=== PATIENT | male | born 1945 | race Caucasian/White ===

== ENCOUNTER 2022-07-05 08:15 | Outpatient (RCR) | payer MEDICARE, OTHER, SELFPAY | END 2022-07-05 09:30 | disposition home or self-care (01) | PROVIDERS: PCP Family Medicine; Visit Provider Family Medicine | DX: M54.50 Low back pain, unspecified (principal); Z51.89 Encounter for other specified aftercare | CPT/HCPCS: 97110; 97140; 97162 ==

== ENCOUNTER 2022-08-01 08:54 | Emergency (ER) | payer MEDICARE, OTHER, SELFPAY ==
[2022-08-01 08:59] VITALS: BP 163/81; PULSE 78; RESP 20; TEMP 36.3; O2SAT 97; BMI 29.7
--- NOTE | 2022-08-01 09:16 | ED.ABDPAIN ---
HPI - Abdominal Pain General Time Seen by Provider: 09:16 Date Seen: 08/01/22 Chief Complaint: Abdominal Pain Stated Complaint: Suspected clogged stoma, swelling Time Seen by Provider: 08/01/22 09:16 Source: patient, family, RN notes reviewed and old records reviewed Mode of arrival: ambulatory Limitations: no limitations History of Present Illness HPI narrative: Patient is a very pleasant 77-year-old [place] with a history of stoma in October of 2021 secondary to, comes to the emergency room with concerns regarding an intestinal blockage. Patient had the onset of a mild frontal headache associated with abdominal pain, liquid output of the stoma as well as bulging of the abdomen lateral to the stoma yesterday. He notes that the headache has continued but here in the emergency room feels that the bulging of the abdomen to the right of the stoma has improved. He unfortunately still has some abdominal pain. He is concerned because he is getting essentially liquid out of his stoma unusually this is somewhat formed. No known ill exposures. Denies vomiting but was very nauseated upon his arrival. Related Data Previous Rx's Medication Instructions Recorded cephalexin 500 mg capsule 500 mg PO TID #20 caps 08/01/22 oxycodone 5 mg tablet 5 mg PO Q6H PRN pain #10 tabs 08/01/22 Allergies Allergy/AdvReac Type Severity Reaction Status Date / Time cat dander Allergy Verified 08/01/22 09:54 PFSH PFS Social History Smoking Status: Never smoker Do you use any of these nicotine containing products: None Second hand tobacco smoke exposure: No How often do you have a drink containing alcohol: 2-4 times a month How many standard drinks containing alcohol do you have on a typical day: 1 or 2 How often do you have six or more drinks on one occasion: Never AUDIT-C Alcohol total score: 2 Non-prescribed substance use: denies use service: Yes Exam Const: Vital Signs, click to edit/add: Vital Signs - 24 hr 08/01/22 08:59 08/01/22 11:16 Temperature 97.4 F L Pulse Rate [Pulse Oximeter] 78 77 Respiratory Rate 20 18 Blood Pressure [Ri ght Upper Arm] 163/81 H 159/68 H Pulse Oximetry 97 97 Oxygen Delivery Me thod Room Air Room Air Course Course Hospital Course: Differential diagnosis includes but is not limited to small-bowel obstruction, gastroenteritis, volvulus, COVID. Will check urinalysis, CBC, comprehensive panel, lipase, CRP and start with abdominal flat plate and upright. IV is placed and patient is given 500 mL of normal saline, Zofran 4 mg. Reevaluation(s) Reevaluation #1: Flat plate and upright show multiple air-fluid levels and I do suggest abdominal CT which patient agrees to. Creatinine is reassuring and patient is not currently on blood thinners. I did offer him either Toradol or a narcotic with risks and benefits discussed of both. He would like to try Toradol. Reevaluation #2: Patient is feeling much better at this time. UTI is noted on his urinalysis and he is agreement to be treated with Rocephin 1 g IV. Fortunately no evidence of obstruction Vital Signs Vital signs: Initial Vital Signs Temperature 97.4 F L 08/01/22 08:59 Temperature Source Temporal Artery Scan 08/01/22 08:59 Pulse Rate 78 08/01/22 08:59 Pulse Rhythm 08/01/22 08:59 Respiratory Rate 20 08/01/22 08:59 Blood Pressure 163/81 H 08/01/22 08:59 Blood Pressure Mean 108 08/01/22 08:59 Blood Pressure Position Supine 08/01/22 08:59 Pulse Oximetry 97 08/01/22 08:59 Oxygen Delivery Method 08/01/22 08:59 Vital Signs Temperature 97.4 F L 08/01/22 08:59 Pulse Rate 78 08/01/22 08:59 Respiratory Rate 20 08/01/22 08:59 Blood Pressure 163/81 H 08/01/22 08:59 Pulse Oximetry 97 08/01/22 08:59 Oxygen Delivery Method 08/01/22 08:59 Temperature 97.4 F L 08/01/22 08:59 Pulse Rate 77 08/01/22 11:16 Respiratory Rate 18 08/01/22 11:16 Blood Pressure 159/68 H 08/01/22 11:16 Pulse Oximetry 97 08/01/22 11:16 Oxygen Delivery Method 08/01/22 11:16 MDM - Abdominal Pain MDM Narrative Medical decision making narrative: 1. Ileus-patient appears to have likely viral mediated gastroenteritis with an ileus. There is no signs of bowel obstruction noted on CT. Patient received 1 L of normal saline along with Zofran and 1 dose of Toradol. He notes he is feeling much better and I would agree he looks improved. I did speak with our surgeon on-call in regards to this patient. She is stressing the importance of good hydration for him given the ileostomy and fluid losses. Recommend Gatorade Powerade and pushing fluids any agrees to this. Return for worsening symptoms and as needed. Oxycodone 5 mg 1/2-1 tab p.o. Q 6-8 hours p.r.n. abdominal pain. 10. Sent to his pharmacy. 2. UTI-patient has evidence of 50-100 wbc's in his urine with 1+ leukocyte esterase. Will treat him with the for UTI. He will receive Rocephin 1 g IV and go home on Keflex 500 mg p.o. t.i.d. x7 days. This sent to his pharmacy. 3. Disposition-patient will be discharged home in the care of his . He is to return for worsening symptoms and as needed. Medical Records Attestation: I reviewed the patient's medical records. Lab Data Attestation: I reviewed the patient's lab results. Labs: Lab Results 08/01/22 08/01/22 08/01/22 Range/Units 10:00 10:00 10:00 WBC 11.96 H (4.50-11.00) K/uL RBC 4.74 (4.30-5.90) m/uL Hgb 13.9 (13.5-17.5) gm/dL Hct 42.5 (37.0-53.0) % MCV 90 (80-100) fL MCH 29 (26-34) pg MCHC 33 (32-36) gm/dL RDW Coeff of Alice 14.2 (11.5-15.5) % Plt Count 243 (140-440) K/uL Neut % (Auto) 90.0 H (42.0-72.0) % Lymph % (Auto) 5.1 L (20-44) % Mccracken % (Auto) 4.5 (0.0-11.0) % Eos % (Auto) 0.3 (0.0-7.0) % Baso % (Auto) 0.0 (0.0-3.0) % Neut # (Auto) 10.80 H (1.7-7.0) K/uL Lymph # (Auto) 0.60 L (0.90-2.90) K/uL Mccracken # (Auto) 0.50 (0.00-0.90) K/UL Eos # (Auto) 0.00 (0.00-0.50) K/uL Baso # (Auto) 0.00 (0.00-0.30) K/uL Sodium Cancelled Potassium Cancelled Chloride Cancelled Carbon Dioxide Cancelled BUN Cancelled Creatinine Cancelled Estimated Creat Clear Cancelled Estimated GFR Cancelled Glucose Cancelled Lactate 1.2 (0.5-1.9) mmol/L Calcium Cancelled Total Bilirubin Cancelled AST Cancelled ALT Cancelled Alkaline Phosphatase Cancelled C-Reactive Protein (0.5-1.0) mg/dL Total Protein Cancelled Albumin Cancelled Lipase (23-300) U/L Urine Color (Yellow) Urine Appearance (Clear) Urine pH (5.0-8.5) Ur Specific Harlan (1.000-1.030) Urine Protein (Negative) Urine Glucose (UA) (Negative) Urine Ketones (Negative) Urine Blood (Negative) Urine Nitrite (Negative) Urine Bilirubin (Negative) Urine Urobilinogen (0.2-1.0) Ur Leukocyte Esterase (Negative) Urine RBC (0-2) Urine WBC (0-5) Ur Squamous Epith Cells (None-Few) Urine Bacteria (None) SARS-CoV-2 (PCR) (Negative) Influenza Type A (PCR) (Negative) Influenza Type B (PCR) (Negative) RSV (PCR) (Negative) 08/01/22 08/01/22 08/01/22 Range/Units 10:00 10:00 10:41 WBC (4.50-11.00) K/uL RBC (4.30-5.90) m/uL Hgb (13.5-17.5) gm/dL Hct (37.0-53.0) % MCV (80-100) fL MCH (26-34) pg MCHC (32-36) gm/dL RDW Coeff of Alice (11.5-15.5) % Plt Count (140-440) K/uL Neut % (Auto) (42.0-72.0) % Lymph % (Auto) (20-44) % Mccracken % (Auto) (0.0-11.0) % Eos % (Auto) (0.0-7.0) % Baso % (Auto) (0.0-3.0) % Neut # (Auto) (1.7-7.0) K/uL Lymph # (Auto) (0.90-2.90) K/uL Mccracken # (Auto) (0.00-0.90) K/UL Eos # (Auto) (0.00-0.50) K/uL Baso # (Auto) (0.00-0.30) K/uL Sodium 138 Potassium 4.3 Chloride 106 Carbon Dioxide 27 BUN 18 Creatinine 1.1 Estimated Creat Clear 62.55 Estimated GFR 69 Glucose 113 Lactate (0.5-1.9) mmol/L Calcium 9.4 Total Bilirubin 0.8 AST 26 ALT 28 Alkaline Phosphatase 80 C-Reactive Protein 1.8 H (0.5-1.0) mg/dL Total Protein 7.7 Albumin 4.4 Lipase 107 (23-300) U/L Urine Color Yellow (Yellow) Urine Appearance Clear (Clear) Urine pH 5.5 (5.0-8.5) Ur Specific Harlan 1.025 (1.000-1.030) Urine Protein Trace A (Negative) Urine Glucose (UA) Negative (Negative) Urine Ketones Negative (Negative) Urine Blood Negative (Negative) Urine Nitrite Negative (Negative) Urine Bilirubin Negative (Negative) Urine Urobilinogen 0.2 (0.2-1.0) Ur Leukocyte Esterase 1+ A (Negative) Urine RBC 0-2 (0-2) Urine WBC 50-100 A (0-5) Ur Squamous Epith Cells None (None-Few) Urine Bacteria None (None) SARS-CoV-2 (PCR) Negative SARS-CoV-2 (Negative) Influenza Type A (PCR) Negative PCR FLU A (Negative) Influenza Type B (PCR) Negative PCR FLU B (Negative) RSV (PCR) Negative PCR RSV (Negative) Imaging Data CT scan - abdomen: Attestation: I have reviewed the pertinent imaging results. Radiologist's impression: No abnormal intra pulmonary nodular densities through the lung bases. No evidence of pleural effusion. Normal size cardiac silhouette without any pericardial effusion. No focal hepatic or splenic pathology. No pancreatic pathology. Gallstones. No adrenal pathology. No kidneys stones or obstructive uropathy. No retroperitoneal lymphadenopathy. No pathology identified involving the stomach. 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 Dilatation of the small bowl loops most likely secondary to ileus rather than obstruction. No pneumoperitoneum. IMPRESSION: 1. Status post colectomy with ileostomy. 2. Mild dilatation of the small bowel loops probably ileus. 3. 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 4. Status post colectomy. Abdominal flat plate and upright: Attestation: I have reviewed the pertinent imaging results. My impression: Multiple air-fluid levels Radiologist's impression: No free air on the upright image. Largely decompressed stomach and duodenum. Few mildly distended small bowel loops within the left mid abdomen and upper pelvis. Air-fluid levels on the upright image. The appearance, while nonspecific could indicate an early or even partial small bowel obstruction. Diverting ostomy right lower quadrant. Postsurgical change from bowel resection left mid abdomen with an anastomotic suture line. IMPRESSION: Air-fluid levels within slightly distended small bowel loops within the abdomen. Although nonspecific, early or partial small bowel obstruction is not excluded. Clinical correlation and radiographic follow up are recommended. Discharge Plan Discharge Clinical Impression: Ileus, Acute UTI, Abdominal pain Patient Disposition: Home, Self-Care Condition: Improved Additional Instructions: 1. Continue antibiotic 1st dose this evening until we are able to ascertain the type of urine infection you may have. When we get the culture back we may; continue your medication, discontinue your medication, change your medication. 2. For discomfort you may use Tylenol as needed. For pain not relieved by Tylenol we will offer a small amount of oxycodone, 1/2-1 tab every 6 hours as needed. Remember this medication should not be used if driving or using alcohol. 3. Push fluids as much as possible including Gatorade or Powerade. 4. Return to the emergency room for worsening symptoms, absence of stool, increasing abdominal pain, persistent vomiting, fever and as needed. Follow-up with your primary MD in the next 2. -5 days to ensure that you are improving Prescriptions: New oxycodone 5 mg tablet 5 mg PO Q6H PRN (Reason: pain) Qty: 10 0RF Rx Instructions: Use 1/2-1 tab every 6-8 hours as needed for discomfort. cephalexin 500 mg capsule 500 mg PO TID Qty: 20 0RF Follow Up/Referrals: Pedro March MD [Primary Care Provider] - Stand Alone Forms: Shoulder Options Info Instructions
--- NOTE | 2022-08-01 09:48 | CRLHL7_ITS ---
For Patients: As a result of the Century Cures Act, medical imaging exams and procedure reports are released immediately into your electronic medical record. You may view this report before your referring provider. If you have questions, please contact your health care provider. INDICATION: Abdominal pain. Liquid stool. TECHNIQUE: Supine and upright views of the abdomen and pelvis. FINDINGS: No free air on the upright image. Largely decompressed stomach and duodenum. Few mildly distended small bowel loops within the left mid abdomen and upper pelvis. Air-fluid levels on the upright image. The appearance, while nonspecific could indicate an early or even partial small bowel obstruction. Diverting ostomy right lower quadrant. Postsurgical change from bowel resection left mid abdomen with an anastomotic suture line. IMPRESSION: Air-fluid levels within slightly distended small bowel loops within the abdomen. Although nonspecific, early or partial small bowel obstruction is not excluded. Clinical correlation and radiographic follow up are recommended. Dictated by Desean Alonzo MD @ 08/01/2022 11:09:58 AM (Electronically Signed)
[2022-08-01] MEDS: 0.9 % SODIUM CHLORIDE 500 ML 500 ML IV ×2 (10:00→13:09)
[2022-08-01] MEDS: ONDANSETRON 2 MG/ML inj 4 MG IVP (10:00)
[2022-08-01 10:07] LABS: Lactate* 1.2 mmol/L (0.5-1.9)
[2022-08-01 10:09] LABS: Eosinophils Percent Auto 0.3 % (0.0-7.0); Hematocrit 42.5 % (37.0-53.0); Hemoglobin* 13.9 gm/dL (13.5-17.5); Immature Granulocytes Pct Auto 0.1 %; Lymphocytes Percent Auto 5.1 % (20-44); Mean Corpuscular HGB Conc 33 gm/dL (32-36); Mean Corpuscular Hemoglobin 29 pg (26-34); Mean Corpuscular Volume 90 fL (80-100); Monocytes Percent Auto 4.5 % (0.0-11.0); Platelet Count* 243 K/uL (140-440); RDW Coefficient of Variation % 14.2 % (11.5-15.5); Red Blood Count 4.74 m/uL (4.30-5.90); White Blood Count* 11.96 K/uL (4.50-11.00)
[2022-08-01 10:12] LABS: Slide Review Reflex No
[2022-08-01 10:22] LABS: Albumin* 4.4 g/dL (3.3-5.0); Chloride* 106 mmol/L (96-114); Sodium* 138 mmol/L (135-149)
[2022-08-01 10:23] LABS: Potassium* 4.3 mmol/L (3.6-5.1)
[2022-08-01 10:25] LABS: Bilirubin Total* 0.8 mg/dL (0.1-1.5); Creatinine* 1.1 mg/dL (0.5-1.5); Est. Creatinine Clearance* 62.55; Estimated Glomerular Filt Rate 69 ml/min
[2022-08-01 10:26] LABS: Alanine Aminotransferase* 28 U/L (4-50); Alkaline Phosphatase* 80 U/L (40-150); Aspartate Amino Transferase* 26 U/L (12-35); Blood Urea Nitrogen* 18 mg/dL (7-30); Calcium* 9.4 mg/dL (8.4-10.6); Carbon Dioxide* 27 mmol/L (20-32); Glucose* 113 mg/dL (60-115); Lipase* 107 U/L (23-300); Total Protein* 7.7 g/dL (6.0-8.3)
[2022-08-01 10:29] LABS: C Reactive Protein* 1.8 mg/dL (0.5-1.0)
--- NOTE | 2022-08-01 10:41 | CRLHL7_ITS ---
For Patients: As a result of the Century Cures Act, medical imaging exams and procedure reports are released immediately into your electronic medical record. You may view this report before your referring provider. If you have questions, please contact your health care provider. INDICATION: Abdominal pain; history of gastric and colon cancer. COMPARISON: None. TECHNIQUE: CT abdomen and pelvis with intravenous contrast; coronal and sagittal reformats. FINDINGS: No abnormal intra pulmonary nodular densities through the lung bases. No evidence of pleural effusion. Normal size cardiac silhouette without any pericardial effusion. No focal hepatic or splenic pathology. No pancreatic pathology. Gallstones. No adrenal pathology. No kidneys stones or obstructive uropathy. No retroperitoneal lymphadenopathy. No pathology identified involving the stomach. 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 Dilatation of the small bowl loops most likely secondary to ileus rather than obstruction. No pneumoperitoneum. IMPRESSION: 1. Status post colectomy with ileostomy. 2. Mild dilatation of the small bowel loops probably ileus. 3. 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 4. Status post colectomy. Please note that all CT scans at this facility use dose modulation, iterative reconstruction, and/or weight-based dosing when appropriate to reduce radiation dose to as low as reasonably achievable. Dictated by Goldy Hardwick MD @ 08/01/2022 12:32:01 PM (Electronically Signed)
[2022-08-01 10:50] LABS: PCR FLU A Negative PCR FLU A (Negative); PCR FLU B Negative PCR FLU B (Negative); PCR RSV Negative PCR RSV (Negative)
[2022-08-01 10:52] LABS: SARS PCR* Negative SARS-CoV-2 (Negative)
[2022-08-01 11:05] LABS: Appearance Urine Clear (Clear); Bilirubin Urine Negative (Negative); Blood Urine Negative (Negative); Color Urine Yellow (Yellow); Glucose Urine Negative (Negative); Ketones Urine Negative (Negative); Leukocyte Esterase Urine 1+ (Negative); Nitrite Urine Negative (Negative); Protein Urine Trace (Negative); Specific Gravity Urine 1.025 (1.000-1.030); Urobilinogen Urine 0.2 (0.2-1.0); pH Urine 5.5 (5.0-8.5)
[2022-08-01] MEDS: KETOROLAC 15 MG/ML inj IVP (11:15)
[2022-08-01 11:16] VITALS: BP 159/68; PULSE 77; RESP 18; O2SAT 97
[2022-08-01 11:33] LABS: RBC Urine 0-2 (0-2); WBC Urine 50-100 (0-5)
[2022-08-01] MEDS: cefTRIAXone 1 GM in 0.9 % SODIUM CHLORIDE Mini-bag 100 ML IVPB (13:09)
== END 2022-08-01 14:30 | disposition home or self-care (01) ==
PROVIDERS: Emergency Provider Family Medicine; PCP Family Medicine
DX: K56.7 Ileus, unspecified (principal); N39.0 Urinary tract infection, site not specified
CPT/HCPCS: 36415; 74019; 74177; 80053; 81001; 83605; 83690; 85025; 86140; 87086; 87502; 87634; 87635; 96365; 96375; 99285; J0696; J1885; J2405; J7120; Q9967

== ENCOUNTER 2023-01-17 07:43 | Emergency (ER) | payer MEDICARE, OTHER, SELFPAY ==
[2023-01-17 07:48] VITALS: BP 180/81; PULSE 74; RESP 20; O2SAT 96; BMI 31.0
--- NOTE | 2023-01-17 08:10 | CRLHL7_ITS ---
For Patients: As a result of the Century Cures Act, medical imaging exams and procedure reports are released immediately into your electronic medical record. You may view this report before your referring provider. If you have questions, please contact your health care provider. Indication: DECREASED OSTOMY OUTPUT Technique: Abdomen 3 view. Comparison: August 20, 2022 Findings: Right ostomy not well visualized by radiograph. Mildly dilated loops of bowel throughout the abdomen. No evidence of free air. Mild dextrocurvature of the lumbar spine. Impression: Right ostomy not well visualized by radiograph. Mildly dilated loops of bowel throughout the abdomen without. Dictated by Aly Hook MD @ 01/17/2023 8:58:38 AM (Electronically Signed)
--- NOTE | 2023-01-17 08:35 | ED_ITS ---
HPI - Abdominal Pain General Date Seen: 01/17/23 Chief Complaint: Unspecified Complaint, Adult Stated Complaint: clogged ostemy Time Seen by Provider: 01/17/23 07:48 Source: patient Mode of arrival: ambulatory Limitations: no limitations History of Present Illness HPI narrative: Patient is a 69-year-old gentleman who presents here with decreased output which is clear fluid out of his ostomy, this is been for the last 24 hours, he was having increased output before this. He is worried about a possible blockage. I asked him if he has ever had obstruction before and he denied this. He has had no fevers or chills but increased abdominal tenderness is noted. He has had no vomiting associated with this. He does not pass any stools. He has had no fevers or chills, the past when he has been here with an ileus he had a UTI, but disputes that that is going on now. He is taking no medications for this, denies any cough cold-like symptoms sore throat, dysuria frequency of urination rashes, or other issues. History of ulcerative colitis, history of recurrent DVTs, Related Data Previous Rx's Medication Instructions Recorded cephalexin 500 mg capsule 500 mg PO TID #20 caps 08/01/22 oxycodone 5 mg tablet 5 mg PO Q6H PRN pain #10 tabs 08/01/22 cephalexin 500 mg capsule 500 mg PO TID #20 caps 01/17/23 Allergies Allergy/AdvReac Type Severity Reaction Status Date / Time cat dander Allergy Verified 01/17/23 07:48 Review of Systems Status of ROS Reports: 10 or more systems reviewed and unremarkable except as noted in History and below PFSH PFS Social History Smoking Status: Never smoker Do you use any of these nicotine containing products: None Second hand tobacco smoke exposure: No How often do you have a drink containing alcohol: 2-4 times a month How many standard drinks containing alcohol do you have on a typical day: 1 or 2 How often do you have six or more drinks on one occasion: Never AUDIT-C Alcohol total score: 2 Non-prescribed substance use: denies use service: Yes Exam Narrative: Exam Narrative: Patient is seen in room 2, he has no apparent distress speaking to me normally nontoxic able sit up, pupils equal round reactive to light there is no scleral icterus redness TMs bilaterally normal oropharynx normal neck is supple full range of motion there is no lymphadenopathy anterior posterior chains his chest is clear by with no wheezing crackles noted heart sounds are normal easy respirations are noted, his abdomen is not distended nor is it hard. He has normal bowel sounds throughout all areas. And there is some clearish yellow fluid along with flex a feculent material in his ostomy bag. There is no r edness blood, not a lot of tenderness on palpation although he tells me that he is sore. There is no CVA tenderness he has no hernias noted bilaterally, normal male genitalia, moves all extremities independently well with absence of rashes. Neurologically intact in his upper lower extremities. Const: Vital Signs, click to edit/add: Vital Signs - 24 hr 01/17/23 07:48 01/17/23 08:50 01/17/23 10:17 Temperature 97.3 F L Pulse Rate [Pulse Oximeter] 74 68 68 Respiratory Rate 20 18 16 Blood Pressure [Ri ght Upper Arm] 180/81 H 154/80 H 157/89 H Pulse Oximetry 96 996 H 97 Oxygen Delivery Me thod Room Air Room Air Room Air Documenting provider has reviewed patient's vital signs: yes Course Course Hospital Course: Patient has decreased pain, but then the pain did increase slightly, will give another dose of morphine. His x-ray looked more like ileus by my review and also by radiology's review. Clearly improved from when he was here in August, when he improved anyway from outpatient management. I think a little bit of pain medication along with treatment for his UTI as he has 10-25 blood cells in his urine. Would be appropriate, his increasing nausea vomiting distension he has come back, Vital Signs Vital signs: Initial Vital Signs Pulse Rate 74 01/17/23 07:48 Respiratory Rate 20 01/17/23 07:48 Blood Pressure 180/81 H 01/17/23 07:48 Blood Pressure Mean 114 H 01/17/23 07:48 Pulse Oximetry 96 01/17/23 07:48 Oxygen Delivery Method Room Air 01/17/23 07:48 Vital Signs Pulse Rate 74 01/17/23 07:48 Respiratory Rate 20 01/17/23 07:48 Blood Pressure 180/81 H 01/17/23 07:48 Pulse Oximetry 96 08/17/23 07:48 Oxygen Delivery Method Room Air 01/17/23 07:48 Temperature 97.3 F L 01/17/23 08:50 Pulse Rate 68 01/17/23 10:17 Respiratory Rate 16 01/17/23 10:17 Blood Pressure 157/89 H 01/17/23 10:17 Pulse Oximetry 97 01/17/23 10:17 Oxygen Delivery Method Room Air 01/17/23 10:17 MDM - Abdominal Pain MDM Narrative Medical decision making narrative: During this evaluation of this patient I considered multiple differential diagnosis is which included the life-threatening such as appendicitis, aortic aneurysm, mesenteric ischemia, bowel perforation, volvulus, and bowel obstruction. Other differential diagnosis is include but are not limited to cholecystitis, pancreatitis, hepatitis, gastritis, GERD, diverticulitis, peptic ulcer disease, pyelonephritis/UTI, renal colic/stone, testicular torsion as well as other acute scrotal processes, inflammatory bowel disease, as well as other etiologies I do think this is more likely and I highly is given his presentation, partial obstruction is not totally ruled out but that would be unlikely. Medical Records Attestation: I reviewed the patient's medical records. Lab Data Attestation: I reviewed the patient's lab results. Labs: Lab Results 01/17/23 01/17/23 01/17/23 Range/Units 08:50 09:00 09:22 WBC 8.71 (4.50-11.00) K/uL RBC 4.37 (4.30-5.90) m/uL Hgb 13.0 L (13.5-17.5) gm/dL Hct 40.3 (37.0-53.0) % MCV 92 (80-100) fL MCH 30 (26-34) pg MCHC 32 (32-36) gm/dL RDW Coeff of [place] 16.2 H (11.5-15.5) % Plt Count 212 (140-440) K/uL Neut % (Auto) 76.2 H (42.0-72.0) % Lymph % (Auto) 14.0 L (20-44) % [place] % (Auto) 8.3 (0.0-11.0) % Eos % (Auto) 0.9 (0.0-7.0) % Baso % (Auto) 0.1 (0.0-3.0) % Neut # (Auto) 6.60 (1.7-7.0) K/uL Lymph # (Auto) 1.20 (0.90-2.90) K/uL [place] # (Auto) 0.70 (0.00-0.90) K/UL Eos # (Auto) 0.08 (0.00-0.50) K/uL Baso # (Auto) 0.01 (0.00-0.30) K/uL Abs Immat Gran (auto) 0.04 (0.00-0.30) K/uL Imm/Tot Granulo (auto) 0.5 % Sodium 140 (135-149) mmol/L Potassium 4.4 (3.6-5.1) mmol/L Chloride 108 (96-114) mmol/L Carbon Dioxide 25 (20-32) mmol/L BUN 19 (7-30) mg/dL Creatinine 1.1 (0.5-1.5) mg/dL Estimated Creat Clear 62.55 Estimated GFR 69 ml/min Glucose 94 (60-115) mg/dL Lactate 1.7 (0.5-1.9) mmol/L Calcium 8.8 (8.4-10.6) mg/dL Total Bilirubin 0.6 (0.1-1.5) mg/dL Direct Bilirubin 0.1 (0.0-0.5) mg/dL AST 35 (12-35) U/L ALT 31 (4-50) U/L Alkaline Phosphatase 62 (40-150) U/L Total Protein 7.1 (6.0-8.3) g/dL Albumin 4.0 (3.3-5.0) g/dL Lipase 63 (23-300) U/L Urine Color Yellow (Yellow) Urine Appearance Clear (Clear) Urine pH 5.5 (5.0-8.5) Ur Specific [place] 1.020 (1.000-1.030) Urine Protein Negative (Negative) Urine Glucose (UA) Negative (Negative) Urine Ketones Negative (Negative) Urine Blood Negative (Negative) Urine Nitrite Negative (Negative) Urine Bilirubin Negative (Negative) Urine Urobilinogen 0.2 (0.2-1.0) Ur Leukocyte Esterase 1+ A (Negative) Urine RBC 0-2 (0-2) Urine WBC 10-25 A (0-5) Ur Squamous Epith Cells Few (None-Few) Urine Bacteria None (None) Coarse Granular Casts Few A (None) SARS-CoV-2 (PCR) Negative SARS-CoV-2 (Negative) Influenza Type A (PCR) Negative PCR FLU A (Negative) Influenza Type B (PCR) Negative PCR FLU B (Negative) RSV (PCR) Negative PCR RSV (Negative) Imaging Data Abdominal x-ray: Attestation: I have reviewed the pertinent imaging results. My impression: Scattered air-fluid levels, most likely ileus. Radiologist's impression: Patient: MIGUEL CASTREJON Facility: [facility] Site . Site : [id number] Study: XRay Abdomen/Pelvis 2 VIEWS-01/17/2023 8:39:47 AM Ordering Physician: Trae Rodgers Final Report: Indication: DECREASED OSTOMY OUTPUT Technique: Abdomen 3 view. Comparison: August 20, 2022 Findings: Right ostomy not well visualized by radiograph. Mildly dilated loops of bowel throughout the abdomen. No evidence of free air. Mild dextrocurvature of the lumbar spine. Impression: Right ostomy not well visualized by radiograph. Mildly dilated loops of bowel throughout the abdomen without. Dictated by Aly Hook MD @ 01/17/2023 8:58:38 AM (Electronic Signature) Discharge Plan Discharge Clinical Impression: Urinary tract infection, Ileus Patient Disposition: Home, Self-Care Condition: Stable Instructions: Urinary Tract Infection in Men (DC), Acute Nausea and Vomiting (ED), Ileus (ED) Additional Instructions: Looks like the UTIs back, this likely is compounding summer your pain, like I said there is really not a lot evidence of an obstruction, lots of fluids, bananas rice applesauce and toast or really good starting points here. Worsening abdominal bloating, discomfort, with vomiting, would make me think that there is obstruction and come back and be seen. Take the antibiotic as directed. Walking is a fantastic thing to help promote but gut to move. Prescriptions: New cephalexin 500 mg capsule 500 mg PO TID Qty: 20 0RF No Action oxycodone 5 mg tablet 5 mg PO Q6H PRN (Reason: pain) Qty: 10 0RF Rx Instructions: Use 1/2-1 tab every 6-8 hours as needed for discomfort. cephalexin 500 mg capsule 500 mg PO TID Qty: 20 0RF Follow Up/Referrals: Pedro March MD [Primary Care Provider] - Stand Alone Forms: MyHealth Info Instructions
[2023-01-17 08:50] VITALS: BP 154/80; PULSE 68; RESP 18; TEMP 36.3; O2SAT 996; BMI 31.0
[2023-01-17] MEDS: 0.9 % SODIUM CHLORIDE 1000 ml 1,000 ML IV ×2 (08:59→10:19)
[2023-01-17] MEDS: ONDANSETRON 2 MG/ML inj 4 MG IVP (09:13)
[2023-01-17] MEDS: MORPHINE 2 MG/ML inj IVP ×2 (09:13→11:44)
[2023-01-17 09:27] LABS: Lactate* 1.7 mmol/L (0.5-1.9)
[2023-01-17 09:33] LABS: Basophils Absolute Auto 0.01 K/uL (0.00-0.30); Basophils Percent Auto 0.1 % (0.0-3.0); Eosinophils Absolute Auto 0.08 K/uL (0.00-0.50); Eosinophils Percent Auto 0.9 % (0.0-7.0); Hematocrit 40.3 % (37.0-53.0); Immature Granulocytes Abs Auto 0.04 K/uL (0.00-0.30); Immature Granulocytes Pct Auto 0.5 %; Mean Corpuscular HGB Conc 32 gm/dL (32-36); Mean Corpuscular Hemoglobin 30 pg (26-34); Mean Corpuscular Volume 92 fL (80-100); Monocytes Percent Auto 8.3 % (0.0-11.0); Neutrophils Percent Auto 76.2 % (42.0-72.0); Platelet Count* 212 K/uL (140-440); RDW Coefficient of Variation % 16.2 % (11.5-15.5); Red Blood Count 4.37 m/uL (4.30-5.90); White Blood Count* 8.71 K/uL (4.50-11.00)
[2023-01-17 09:34] LABS: Slide Review Reflex No
[2023-01-17 09:44] LABS: Chloride* 108 mmol/L (96-114); Potassium* 4.4 mmol/L (3.6-5.1); Sodium* 140 mmol/L (135-149)
[2023-01-17 09:47] LABS: Appearance Urine Clear (Clear); Bilirubin Urine Negative (Negative); Blood Urine Negative (Negative); Color Urine Yellow (Yellow); Glucose Urine Negative (Negative); Ketones Urine Negative (Negative); Leukocyte Esterase Urine 1+ (Negative); Nitrite Urine Negative (Negative); Protein Urine Negative (Negative); Urobilinogen Urine 0.2 (0.2-1.0); pH Urine 5.5 (5.0-8.5)
[2023-01-17 09:47] LABS: Blood Urea Nitrogen* 19 mg/dL (7-30); Carbon Dioxide* 25 mmol/L (20-32); Creatinine* 1.1 mg/dL (0.5-1.5); Est. Creatinine Clearance* 62.55; Estimated Glomerular Filt Rate 69 ml/min
[2023-01-17 09:48] LABS: Alkaline Phosphatase* 62 U/L (40-150); Aspartate Amino Transferase* 35 U/L (12-35); Bilirubin Direct* 0.1 mg/dL (0.0-0.5); Bilirubin Total* 0.6 mg/dL (0.1-1.5); Calcium* 8.8 mg/dL (8.4-10.6); Glucose* 94 mg/dL (60-115); Total Protein* 7.1 g/dL (6.0-8.3)
[2023-01-17 09:49] LABS: Alanine Aminotransferase* 31 U/L (4-50); Lipase* 63 U/L (23-300)
[2023-01-17 10:17] VITALS: BP 157/89; PULSE 68; RESP 16; O2SAT 97
[2023-01-17 10:22] LABS: Coarse Granular Casts Urine Few; RBC Urine 0-2 (0-2); Squamous Epithelial Cell Urine Few (None-Few)
[2023-01-17 10:34] LABS: PCR FLU A Negative PCR FLU A (Negative); PCR FLU B Negative PCR FLU B (Negative); PCR RSV Negative PCR RSV (Negative)
[2023-01-17 10:35] LABS: SARS PCR* Negative SARS-CoV-2 (Negative)
== END 2023-01-17 12:58 | disposition home or self-care (01) ==
PROVIDERS: Emergency Provider Family Medicine; PCP Family Medicine
DX: N39.0 Urinary tract infection, site not specified (principal); K56.7 Ileus, unspecified
CPT/HCPCS: 36415; 74019; 80048; 80076; 81001; 83605; 83690; 85025; 87086; 87631; 96374; 96375; 96376; 99284; J2270; J2405; J7030

== ENCOUNTER 2024-08-31 09:45 | Outpatient (RCR) | payer MEDICARE, OTHER, SELFPAY ==
--- OUTSIDE RECORDS SUMMARY | 2024-05-20 13:45 | XMS_ITS | Encounter Summary ---
Author Name [facility] [place] [facility] [place] [facility] [place] Address [address] [place] [address] Care Team Providers Care Mixer Attendant Name Role Phone ERIC ROMERO Primary Care Provider Unavailab le Insurance Providers: All historical and current Section Date Range: From patient's date of to the date document was created. This section includes the names of all active insurance providers for the patient. Insurance Provider Type of Coverage Plan Name Start of Policy Coverage End of Policy Coverage Group Number Member ID Insurance Provider's Telephone Number Policy Mota's Name Patient's Relationship to Policy Mota MEDICA (WNR) MEDICARE ADVANTAGE [facility] ([facility]) Jun 03, 2019 [id number] [phone] ROB CASTREJON PATIENT MEDICA [facility] ([facility]) MEDICARE [facility] ([facility]) Jun 03, 2017 [id number] [phone] ROB CASTREJON PATIENT MEDICA [facility] (WNR) MEDICARE ADVANTAGE [facility] (WNR) Jun 03, 2017 [id number] ROB CASTREJON PATIENT MEDICARE PART D ([facility]) MEDICARE (M) PART D Apr 03, 2009 PART D [id number] ROB CASTREJON PATIENT [facility] ([facility]) [facility] MEDIC ARE DHRUVA HUGH T Apr 03, 2009 [id number] [phone] ROB SHEARER PATIENT Selected Encounter This section includes the information on record at [place] for the Encounter. 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 Apr 20, 2024 04:22 PM SECONDARY Acquired absence of other specified parts of digestive tract LISA ROMERO B [facility] Apr 20, 2024 04:22 PM SECONDARY Carcinoma in situ of prostate LISA ROMERO EN B [facility] Apr 20, 2024 04:22 PM SECONDARY Chronic rhinitis LISA ROMERO B [facility] Apr 20, 2024 04:22 PM SECONDARY Essential (primary) hypertension LISA ROMERO EN B [facility] Apr 20, 2024 04:22 PM SECONDARY Iron deficiency anemia, unspecified LISA ROMERO EN B [facility] Apr 20, 2024 04:22 PM SECONDARY Obstructive sleep apnea (adult) (pediatric) LISA ROMERO EN B [facility] Apr 20, 2024 04:22 PM SECONDARY Other asthma LISA ROMERO EN B [facility] Apr 20, 2024 04:22 PM SECONDARY Prediabetes LISA ROMERO EN B [facility] Apr 20, 2024 04:22 PM SECONDARY Ulcerative colitis, unsp with unspecified complications LISA ROMERO EN B [facility] Apr 20, 2024 04:22 PM SECONDARY Unspecified atrial fibrillation LISA ROMERO EN B [facility] Plan of Treatment: Future Appointments (+ 6 months) and Future Tests (+/- 45 days) The Plan of Treatment section includes future care activities for the patient from all [place] treatmentfacilities. This section includes future appointments and future orders which are active, pending or scheduled. Future Appointments This section includes appointments that were scheduled to occur 6 months from the date of the Encounter, up to a maximum of 20 appointments. The data comes from all [facility]. Appointment Date/Time Appointment Type Appointme nt Facility Name May 21, 2024 09:00 AM AMBULATORY - NONE JOYCE KHAN [facility] May 25, 2024 11:20 AM AMBULATORY - MEDICINE CHARITY RAMIREZ [facility] Active, Pending, and Scheduled Orders This section includes a listing of several types of active, pending, and scheduled orders, including clinic medications orders, diagnostic test orders, procedure orders and consult orders; where the start date of the order is 45 days before the date of the Encounter or 45 days after the date of theEncounter. The data comes from all [facility]. Test Date/Time Test Type Test Details Facility Name May 21, 2024 12:00 AM Laboratory - Chemi stry Order APIXABAN PLASMA SP ONCE [facility] Lab Results: +/- 30 days of the encounter This section includes the Chemistry and Hematology Lab Results on record with [place] for the patient. Radiology Reports and Pathology Reports are provided separately, in subsequent sections. Lab Results This section contains the Chemistry/Hematology Results that were resulted 30 days before or 30 daysafter the date of the Encounter. Date/Time Source Result Type Result - Unit Interpretation Reference Range Comment Apr 20, 2024 03:[address] [facility] LUPUS INHIBITOR PANEL Specimen Type: PLASMA No comment entered. Ordering Provider: ERIC ROMERO Report Released Date/Time: Apr 20, 2024 03:18 PM Reporting Lab: [facility] [id number] Performing Lab: [facility] [id number] .dRVVT NORM. RATIO 0.96 {ratio} <1.15 .SILICA CLOT RATIO 1.12 {ratio} <1.18 LUPUS INHIBIT INTERP NEGATIVE -negative Apr 20, 2024 03:[address] [facility] METHYLMALONIC ACID Specimen Type: SERUM No comment entered. Ordering Provider: ERIC ROMERO Report Released Date/Time: Apr 20, 2024 03:18 PM Reporting Lab: [facility] [id number] Performing Lab: [facility] [phone] METHYLMALONIC ACID 234 nmol/L 0-400 Apr 20, 2024 03:[address] [facility] PROTEIN C (FUNC) Specimen Type: PLASMA No comment entered. Ordering Provider: ERIC ROMERO Report Released Date/Time: Apr 20, 2024 03:18 PM Reporting Lab: [facility] [id number] Performing Lab: [facility] [id number] PROTEIN C (FUNC) 94 [phone] Apr 20, 2024 03:[address] [facility] PROTEIN S-FREE Specimen Type: PLASMA No comment entered. Ordering Provider: ERIC ROMERO Report Released Date/Time: Apr 20, 2024 03:18 PM Reporting Lab: [facility] [phone] Performing Lab: [facility] [phone] PROTEIN S-FREE [phone] Apr 20, 2024 03:[address] [facility] ANTI-CARDIOLIPIN WALKER PANEL Specimen Type: SERUM Comment: .AGNES IGG:REFERENCE RANGE: <20.0 GPL-U/mL .AGNES IGG:Value Interpretation .AGNES IGG:----- .AGNES IGG:< 20.0 Antibody not detected .AGNES IGG:> or = 20.0 Antibody detected .AGNES IGM:REFERENCE RANGE: <20.0 MPL-U/mL .AGNES IGM:Value Interpretation .AGNES IGM:----- .AGNES IGM:< 20.0 Antibody not detected .AGNES IGM:> or = 20.0 Antibody detected .AGNES IGM:The antiphospholipid antibody syndrome (APS) is a .AGNES IGM:clinical-pat hologic correlation that includes a .AGNES IGM:clinical event (e.g. arterial or venous thrombosis, .AGNES IGM: morbidity) and persistent positive .AGNES IGM:antiphosphol ipid antibodies (IgM, IgG Cardiolipin or .AGNES IGM:b2GPI antibodies greater than the 99th percentile; .AGNES IGM:or a lupus anticoagulant). International consensus .AGNES IGM:guidelines for APS suggest waiting at least 12 weeks .AGNES IGM:before retesting to confirm antibody persistence. .AGNES IGM:The Systemic Lupus International Collaborating [facility] .AGNES IGM:immunologica l classification criteria for systemic .AGNES IGM:lupus erythematosus (SLE) include testing for .AGNES IGM:isotype IgA, which has yet to be incorporated into .AGNES IGM:APS criteria. Low level antiphospholipid antibodies .AGNES IGM:may sometimes be detected in the setting of infection, .AGNES IGM:drug therapy or aging. .AGNES IGM:For additional information, please refer to .AGNES IGM:http://educa tion.[employer].com/faq/FA Q109 .AGNES IGM:(This link is being provided for informational/ .AGNES IGM:educational purposes only.) .AGNES IGM:Test Performed by [facility], .AGNES IGM:[facility], .AGNES IGM:[address] [place], [place] .AGNES IGM:iLto Kruse M.D., Ph.D., Director of Laboratories .AGNES IGM: , CLIA [id number] Ordering Provider: ERIC ROMERO Report Released Date/Time: Apr 20, 2024 03:18 PM Reporting Lab: [facility] [phone] Performing Lab: [facility] [id number] [facility] CARDIOLIPIN,IG G WALKER 2.5 SEE BELOW CARDIOLIPIN,IG M WALKER 11.3 SEE BELOW Apr 20, 2024 03:[address] [facility] B 12 Specimen Type: SERUM No comment entered. Ordering Provider: ERIC ROMERO Report Released Date/Time: Apr 20, 2024 03:18 PM Reporting Lab: [facility] [phone] Performing Lab: [facility] [address] B 12 336 pg/mL 213-816 Apr 20, 2024 03:[address] [facility] FOLATE Specimen Type: SERUM No comment entered. Ordering Provider: ERIC ROMERO Report Released Date/Time: Apr 20, 2024 03:18 PM Reporting Lab: [facility] [phone] Performing Lab: [facility] [phone] FOLATE 17.5 ng/mL >7.0 Apr 20, 2024 03:[address] [facility] BASIC METABOLIC PANEL+MG Specimen Type: PLASMA No comment entered. Ordering Provider: ERIC ROMERO Report Released Date/Time: Apr 20, 2024 03:18 PM Reporting Lab: [facility] [phone] Performing Lab: [facility] [phone] CREATININE 1.2 mg/dL 0.7-1.2 UREA NITROGEN 18 mg/dL 8-26 GLUCOSE 97 mg/dL 70-100 SODIUM 142 mmol/L 136-145 POTASSIUM 4.1 mmol/L 3.5-5.1 CHLORIDE 111 mmol/L H 98-107 CO2 22 mmol/L 22-29 CALCIUM 9.4 mg/dL 8.4-10.2 MAGNESIUM 1.9 mg/dL 1.6-2.6 ANION GAP 9 mmol/L 5-15 .CREAT EGFR(CKD-EPI) 62 >60 Apr 20, 2024 03:[address] [facility] CBC & DIFF Specimen Type: BLOOD Comment: Automated Differential Performed Ordering Provider: ERIC ROMERO Report Released Date/Time: Apr 20, 2024 03:18 PM Reporting Lab: [facility] [phone] Performing Lab: [facility] [phone] WBC 9.3 4.0-11.0 RBC 4.71 4.60-6.20 HGB 14.2 g/dL 13.5-17.9 HCT 43.9 41.0-54.0 MCV 93.2 fL 80.0-100.0 MCH 30.1 pg 27.0-33.0 MCHC 32.3 g/dL 32.0-37.5 PLT 230 150-400 MPV 8.9 fL L 9.1-13.0 NEUT 72.7 40.0-80.0 LYMPHS 16.0 15.0-45.0 MONO 8.9 2.0-12.0 EOSINO 1.6 0.0-6.0 BASO 0.4 0.0-2.0 RDW 14.6 H 11.5-14.5 ABS LYMPH 1.5 1.0-4.0 ABS MONO 0.8 0.1-1.0 ABS NEUT 6.8 2.0-7.7 ABS EOS 0.2 0.0-0.5 ABS BASO 0.0 0.0-0.2 IG(META,MYELO, PRO) 0.4 ABS IMMATURE GRAN 0.0 0.0-0.1 Apr 20, 2024 03:[address] [facility] HEMOGLOBIN A1C Specimen Type: BLOOD Comment: Values obtained from A1C measurements can vary. For typical A1C assays, a reported value of 7.0 could actually be between 6.7 and 7.3 if measured by a reference method. A reported value of 9.0 could actually be between 8.7 and 9.3. Ref: http://www.ngsp. org/CAPdata.asp Ordering Provider: ERIC ROMERO Report Released Date/Time: Apr 20, 2024 03:18 PM Reporting Lab: [facility] [phone] Performing Lab: [facility] [phone] HEMOGLOBIN A1C 5.5 4.0-6.0 Apr 20, 2024 03:[address] [facility] IRON GROUP Specimen Type: SERUM No comment entered. Ordering Provider: ERIC ROMERO Report Released Date/Time: Apr 20, 2024 03:18 PM Reporting Lab: [facility] [address] Performing Lab: [facility] [address] IRON 45 ug/dL L 65-175 TIBC,CALCULATE D 313 ug/dL 250-425 FERRITIN 115.0 ng/mL 21.8-274.7 IRON SATURATION 14 L 20-50 TRANSFERRIN 250 mg/dL 163-382 Apr 20, 2024 03:[address] [facility] PT/INR(ANTICOAG) Specimen Type: PLASMA No comment entered. Ordering Provider: ERIC ROMERO Report Released Date/Time: Apr 20, 2024 03:18 PM Reporting Lab: [facility] [phone] Performing Lab: [facility] [phone] .INR 1.2 H 0.8-1.1 .PT 13.5 s H 9.4-12.5 Apr 20, 2024 03:[address] [facility] LIVER FUNCTION TESTS Specimen Type: PLASMA No comment entered. Ordering Provider: ERIC ROMERO Report Released Date/Time: Apr 20, 2024 03:18 PM Reporting Lab: [facility] [phone] Performing Lab: [facility] [phone] BILIRUBIN, TOTAL 0.5 mg/dL 0.2-1.2 ALKALINE PHOSPHATASE 67 U/L 40-150 ALT/SGPT 27 U/L <44 AST/SGOT 28 U/L 11-34 GAMMA GTP 35 U/L <54 Vital Signs: All taken on the encounter date This section contains inpatient and outpatient Vital Signs collected on the date of the Encounter. Date/Time Temperature Pulse Blood Pressure Respiratory Rate SP02 Pain Height Weight Body Mass Index Source Apr 20, 2024 02:13 PM 98.3 112 137/72 20 92 0 72 244 33 [facility] Social History: Smoking Status (Most current) and Tobacco Use (All prior to encounter date) This section includes the most current, and the historical, smoking and tobacco- related health factors from the [place] facility where the Encounter took place. Current Smoking Status This section includes the most current smoking, or tobacco-related health factor, from the [place] facility where the Encounter took place. Date/Time Current Smoking Status Comment Manohar ity Apr 20, 2024 02:00 PM CO-TOBACCO NEVER USED CIGARETTES [facility] Tobacco Use History This section includes a history of the smoking, or tobacco-related health factors, that were collected on or before the date of the Encounter. The data comes from the [place] facility where the Encounter took place. Date/Time Smoking Status/Tobacco Use Comment F acility Apr 20, 2024 02:00 PM CO-TOBACCO NEVER USED OTHER TYPE [facility] Encounter Notes: All associated encounter notes This section contains the clinical notes associated to the Encounter. Date/Time Encounter Note(s) Provider Source May 04, 2024 03:29 PM LETTERS: LOCAL TITLE: FOLLOW UP RESULTS LETTER STANDARD TITLE: LETTERS DATE OF NOTE: MAY 04, 2024@15:29 ENTRY DATE: MAY 04, 2024@15:29:24 AUTHOR: ERIC ROMERO COSIGNER: URGENCY: STATUS: COMPLETED [facility] [place] [address] May [address] [place] [address] Dear : I am writing to inform you of the results of testing that you had done recently at the [facility]. Additional Comments: Your iron level was a little low. Taking the iron every other day, as I recommended, *might* improve absorption. All of the tests for coagulopathy were normal. This is good news. You still need to take your apixaban, however. If you have any further questions or problems, please contact our nursing staff or provider at the following number: [phone]. Sincerely, ERIC RMOERO MD STAFF PHYSICIAN ERIC ROMERO [facility] Apr 20, 2024 03:18 PM INTERNAL MEDICINE NOTE: LOCAL TITLE: MEDICINE CLINIC NOTE STANDARD TITLE: INTERNAL MEDICINE NOTE DATE OF NOTE: APR 20, 2024@15:18 ENTRY DATE: APR 20, 2024@15:18:57 AUTHOR: ERIC ROMERO EXP COSIGNER: URGENCY: STATUS: COMPLETED MEDICINE CLINIC NOTE Has ADDENDA - Nurse's note reviewed. Problem List - Active - NONE FOUND - 90 minutes today were spent in review of CPRS records, careful review of medication list, interviewing the patient, coordinating care, education, and planning next steps. Patient is here to establish [facility] care. he receives primary care from Dr. Collins at [facility]. He is here primarily because he takes Eliquis, and it is too expensive for him. Past Medical history and history of present illnesses below: 1. Ulcerative colitis since age 25 years. S/p colectomy 2 years ago for right sided colon cancer. 2. 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 First DVT was age 25. Last DVT was 8-9 years ago while on anticoagulation. No family h/o blood clots, but says his father had had multiple strokes prior to the age of 49 years. He has no known history of coagulopathy. No recurrence since starting apixaban. 3. h/o persistent mild asthma versus bronchitic asthma. Treated with steroid inhaler alone. Has albuterol inhaler, has taken 2 rescues inhalations in the past year. No nocturnal symptoms. 4. H/o iron deficiency anemia. diagnosis was established after his colectomy. The patient is unclear as to the source of low iron. He doesn't recall having upper endoscopy. He believes that it *could* have been an immediate post-op diagnosis, but he is not sure. 5. Atrial fibrillation. Apparently was diagnosed during his colectomy. 6. Prostate CA. He has selected watchful waiting and is followed by a urologist. 7. h/o vasomotor rhinitis. Uses nasal steroid inhaler 8. h/o HTN. 9. H/o pre-diabetes. last HgA1c was less than 6.[address] collins's office (about 6 months ago). 10. H/o Sleep apnea. Just got a new machine. He reports reasonably refreshing sleep. Sleep is disrupted mildly for nocturia, but he reliably gets up twice a night to empty his ostomy bag. . Served in the [employer]. 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 No occupational or exposures of concern. Drinks 1-2 oz ETOH per month. PE: Patient appears younger than stated age. Breathing is non-labored and he is no apparent distress a/p: 1. Ulcerative colitis. s/p colectomy. Managed by [facility]. Wants to get his ostomy supplies from [place]. He will sign up for [employer] and send us the names/list of needed supplies 2. Recurrent DVTs. Will check some basic labs, but he will need lifelong anticoagulation. He has not had a DVT recurrence since starting Eliquis. Wrote RX for 30 days of medications. Refer to anticoagulation clinic. 3. Atrial fibrillation. Second indication for Eliquis. 4. Rhinitis. Patient will continue nasal steroid per his primary care doctor. 5. Iron deficiency. Advised him to take iron every other day. Will check CBC and iron panel here. 6. h/o mild asthma. Switch to budesonide/formoterol per FINESSE guidelines. Check PFTs He should stop the fluticasone disc/albuterol. 7. CAP. Managed by outside urologist. 8. h/o HTN. BP is acceptable here on no medications. Managed by outside PCP. 9. h/o pre-diabetes. Check HgA1c here. 10. Sleep apnea. Gave him the number to call when/if he needs new supplies. 11. RTC 1 year or sooner. Enroll roque. Medication Reconciliation: Education Evaluations *Was medication education provided for NEW medications or CHANGES to medications? (including medication name, dose, route, reason for use, and potential side effects). Yes. Verbal education was provided to patient/caregiver and patient/caregiver verbalized understanding. TERATOGENIC MED & CONTRACEPTION REVIEW (Optional)... ===== MEDICATION RECONCILIATION ===== Review Done: The medication list shown below was verified for accuracy and it includes all pending medications/active medications/all medications or discontinued within the last 90 days/all remote medications and non-VA medications. If a given category (i.e. remote meds) is not shown, that means that a patient doesn't have a medication(s) in that category. Allergies listed below were also reviewed/updated for accuracy. Allergies/ADR from [facility] may not display in CPRS. Use JLV MRT5 - Allergies/ADRs FACILITY ALLERGY/ADR -------- No Remote Allergy/ADR Data available for this patient [facility] [facility] No Known Allergies Active and Recently Outpatient Medications (including Supplies): Issue Date Status Last Fill Pending Outpatient Medications Refills Expiration 1) APIXABAN 2.5MG TAB Qty: 60 Sig: TAKE PENDING ONE TABLET BY MOUTH EVERY 12 HOURS Refills: 0 2) BUDESONIDE 160/FORMOTER 4.5MCG 120D INH PENDING Qty: 2 Sig: INHALE 1 PUFF BY Refills: 0 INHALATION EVERY DAY Start Date Active Non-VA Medications Refills Expiration 1) Non-VA ATORVASTATIN CALCIUM 10MG TAB ACTIVE SiMG MOUTH EVERY DAY 2) Non-VA CALCIUM 250MG/VITAMIN D 125 UNT ACTIVE TAB Si TABLET MOUTH EVERY DAY 3) Non-VA FERROUS GLUCONATE 324MG TAB Sig: ACTIVE 324MG MOUTH EVERY DAY 4) Non-VA FLUTICASONE SOLN,NASAL Sig: ACTIVE EACH NOSTRIL 5) Non-VA FOLIC ACID 1MG TAB SiMG ACTIVE MOUTH EVERY DAY 6) Non-VA METOPROLOL TARTRATE TAB Sig: ACTIVE 12.5MG MOUTH TWICE A DAY 7) Non-VA OMEPRAZOLE 40MG EC CAP SiMG ACTIVE MOUTH EVERY DAY 9 Total Medications /tao/ ERIC ROMERO MD STAFF PHYSICIAN Signed: 04/20/2024 16:27 05/04/2024 ADDENDUM STATUS: COMPLETED lupus anticoagulant-, antiphospholipid antibody panel -, Protein C and S normal. Iron and iron sat a little low /tao/ ERIC ROMERO MD STAFF PHYSICIAN Signed: 05/04/2024 15:[address] [facility] Apr 20, 2024 02:16 PM INTERNAL MEDICINE OUTPATIENT NOTE: LOCAL TITLE: MEDICINE CLINIC NURSING NOTE STANDARD TITLE: INTERNAL MEDICINE OUTPATIENT NOTE DATE OF NOTE: APR 20, 2024@14:16 ENTRY DATE: APR 20, 2024@14:16:30 AUTHOR: JANEL CASTELLANO COSIGNER: URGENCY: STATUS: COMPLETED TYPE OF VISIT: Appointment Check In Type of appointment: In-person appointment REASON FOR VISIT: new patient ALLERGIES: Patient has answered NKA VITAL SIGNS: Blood Pressure: 137/72 (04/20/2024 14:13) Pulse: 112 (04/20/2024 14:13) Respiration: 20 (04/20/2024 14:13) Temperature: 98.3 F [36.8 C] (04/20/2024 14:13) Weight: 244 lb [110.68 kg] (04/20/2024 14:13) Height: 72 in [182.9 cm] (04/20/2024 14:13) BMI: 33.2 O2 Sat: 92% (04/20/2024 14:13) Pain: 0 (04/20/2024 14:13) PAIN SCREEN: Patient is not having significant pain that they wish to discuss with their provider today. MEDICATION Active Outpatient Medications (including Supplies): No Medications Found Over the Counter/Herbal Medications: The patient denies taking any outside medications or herbals. Toxic Exposure Screening: The [place]/caregiver was asked if they believe the experienced any toxic exposure(s), such as Airborne Hazards and Open Burn [place], [place] War related exposures, Agent Stark, Radiation, contaminated water at [place] or other such exposures, while serving in the Armed [place]. [place] has no concerns about toxic exposure(s) while serving in the Armed Forces. The [place]/caregiver was informed that we will continue to ask this screening question every 5 years. They can contact their provider/healthcare team if they have concerns about exposures and would like to be screened sooner. Printed information was offered and provided if desired. Tobacco Use Screening: The patient has never smoked cigarettes. The patient has never used other types of tobacco. PTSD Screening: PC-PTSD-5 A PTSD screening test (PC-PTSD-5) was negative (score=0). IN THE PAST MONTH, have you ever had any experience that was so frightening, horrible or traumatic. For example: A serious accident or fire a physical or sexual assault or abuse An earthquake or flood A war Seeing someone be killed or seriously injured Having a loved one through homicide or suicide 1. Have you ever experienced this kind of event? NO 2. Had nightmares about the event(s) or thought about the event(s) when you did not want to? Response not required due to responses to other questions. 3. Tried hard not to think about the event(s) or went out of your way to avoid situations that reminded you of the event(s)? Response not required due to responses to other questions. 4. Been constantly on guard, watchful, or easily startled? Response not required due to responses to other questions. 5. [place] numb or detached from people, activities, or your surroundings? Response not required due to responses to other questions. 6. [place] guilty or unable to stop blaming yourself or others for the event(s) or any problems the event(s) may have caused? Response not required due to responses to other questions. Suicide Screen: C-SSRS Screening [place]-Suicide Severity Rating Scale (C-SSRS Screener) 1. Over the past month, have you wished you were or wished you could go to sleep and not wake up? No 2. Over the past month, have you had any actual thoughts of killing yourself? No 3. Over the past month, have you been thinking about how you might do this? Response not required due to responses to other questions. 4. Over the past month, have you had these thoughts and had some intention of acting on them? Response not required due to responses to other questions. 5. Over the past month, have you started to work out or worked out the details of how to kill yourself? Response not required due to responses to other questions. 6. If yes, at any time in the past month did you intend to carry out this plan? Response not required due to responses to other questions. 7. In your lifetime, have you ever done anything, started to do anything, or prepared to do anything to end your life (for example, collected pills, obtained a gun, gave away valuables, went to the roof but didn't jump)? No 8. If YES, was this within the past 3 months? Response not required due to responses to other questions. MST Screening: Patient denies experiencing sexual trauma (MST). Homelessness/Food Insecurity Screen: In the past 2 months, have you been living in stable housing that you own, rent, or stay in as part of a household? Yes - Living in stable housing. Are you worried or concerned that in the next 2 months you may NOT have stable housing that you own, rent, or stay in as part of a household? No - Not worried about housing near future The reports the following: Within the past 12 months, you worried whether your food would run out before you got money to buy more. Never true Within the past 12 months, the food you bought just didn't last and you didn't have money to get more. Never true Food Assistance Programs [facility] Food Assistance [facility] Depression Screening: Perform PHQ-2 A PHQ-2 screen was performed. The score was 0 which is a negative screen for depression. Over the past two weeks, how often have you been bothered by the following problems? 1. Little interest or pleasure in doing things Not at all 2. Feeling down, depressed, or hopeless Not at all Alcohol Use Screen (AUDIT-C): Alcohol Screen: SCREEN FOR ALCOHOL (AUDIT-C) An alcohol screening test (AUDIT-C) was negative (score=1). 1. How often did you have a drink containing alcohol in the past year? Consider a drink to be a 12 ounce can or bottle of regular beer, 8 ounces of malt liquor, a 5 ounce glass of table wine, or a 1.5 ounce shot of liquor (like scotch, gin, or vodka). Monthly or less 2. How many drinks containing alcohol did you have on a typical day when you were drinking in the past year? One or two drinks 3. How often did you have six or more drinks on one occasion in the past year? Never Nursing Annual Screening: Whole Health Screen is due OR due soon (within 90 days). Whole Health Screening Why is addressing your overall health important to you? live good life What do you want your health for (why do you want to be healthy)? live long Fall History Screen During the past 12 months, have you had any falls? Patient reports one fall with injury requiring treatment in the past 12 months. MEDICATIONS: Patient does not have an active prescription for one of the following medications: Antihypertensives, Antidepressants, Antipsychotics, Diuretics, or Opioid Analgesics (Contolled Substance medications used for pain). Script Talk Screen Are you able to read your prescription bottles with your glasses, magnifiers or other aids? Yes or patient not taking any prescriptions. Skin Screen Patient reports any current pressure ulcers, a history of pressure ulcers, or a wound from a medical technician or Patient is bed-confined or a wheelchair-user or Patient requires assistance to transfer/change position No, Skin Screen is Negative Home Abuse/Violence Screen Is your home free of abuse and violence? Yes MOVE! Program Screen Body Mass Index (BMI)= 33.2 [place]: No data available [place] Hgb A1C: No data available [place] Hgb A1C: No data available Point of Care Hgb A1C: POC HGB A1C____ Outpatient Nutrition Screen Body Mass Index (BMI)= 33.2 [place]: No data available [place] Hgb A1C: No data available [place] Hgb A1C: No data available Point of Care Hgb A1C: POC HGB A1C____ Is patient's BMI less than 18.5? No Does patient have swallowing, coughing, or chewing problems affecting oral intake? No Has patient experienced unplanned weight loss or gain greater than 10 pounds over the last 2 months? No Is patient's Hgb A1C (Glycosylated Hemoglobin) greater than 9.5? Information not available Is patient receiving Total Parenteral Nutrition (TPN) or Tube Feedings? No Patient Health Education Screen BARRIERS/SPECIAL NEEDS: Physical limitations Hearing limitations Visual limitations PREFERRED STYLE OF LEARNING: No preference stated Client Assistive Service (INGA) Screen Does the patient require assistance with outpatient visit? No /tao/ JANEL Reza [facility] [employer] INSTRUMENT INSPECTOR Signed: 04/20/2024 14:[address] [facility]
--- OUTSIDE RECORDS SUMMARY | 2024-05-20 13:45 | XMS_ITS | Encounter Summary ---
Author Name [facility] Organization [facility] Address [address] [place] [address] Care Team Providers Care Ground Equipment Mechanic Name Role Phone ERIC ROMERO Primary Care [...] to Policy Mota MEDICA (WNR) MEDICARE ADVANTAGE [facility] (WNR) Jun 03, 2019 [id number] ADRIANBRISSAKatherineROB BORREROLES PATIENT MEDICA [facility] (WNR) MEDICARE ADVANTAGE [facility] (WNR) Jun 03, 2017 [id number] [phone] ADRIANBRISSAROB Murphy PATIENT [employer]ICA [facility] (WNR) MEDICARE ADVANTAGE [facility] (WNR) Jun 03, 2017 [id number] ADRIANBRSISAROB Murphy PATIENT MEDICARE PART D (WNR) MEDICARE (M) PART D Apr 03, 2009 PART D [id number] ADRIANBRISSAKatherineROBLES PATIENT [facility] (WNR) [facility] ORGANIZ MEDIC ARE RICKY Peacock Apr 03, 2009 [id number] ROB CASTREJON PATIENT Selected Encounter This section includes the information on record at MD for the Encounter. Date/Time Encounter Type Encounter Description Reason Provider Source Apr 21, 2024 08:09 AM QNHP OL DIG ASSMT&MGMT 11-20 CLINICAL PHARMACY ICD-10-CM J45.998 Other asthma BRANDI GUTIÉRREZ IHKatherine Encounter Template Text not used by MD Assessments - Encounter Diagnoses This section includes the primary and secondary diagnoses documented for the Encounter. Date/Time Primary/Secondary Diagnosis Diagnosis Name Provider Source Apr 21, 2024 08:11 AM PRIMARY Other asthma BRANDI GUTIÉRREZ [facility] Plan of Treatment: Future Appointments (+ 6 months) and Future Tests (+/- 45 days) The Plan of Treatment section includes future care activities for the patient from [facility] [place] This section includes future appointments and future orders which are active, pending or scheduled. Future Appointments This section includes appointments that were scheduled to occur 6 months from the date of the Encounter, up to a maximum of 20 appointments. The data comes from all MD treatment facilities. Appointment Date/Time Appointment Type Appointme nt Facility Name May 21, 2024 09:00 AM AMB[facility]ATORY - NONE [facility] [facility] May 25, 2024 11:20 AM AMBULATORY [...] of theEncounter. The data comes from all MD treatment facilities. Test Date/Time Test Type Test Details Facility Name May 21, 2024 12:00 AM Laboratory - Chemi stry Order APIXABAN PLASMA SP ONCE [facility] Lab Results: +/- 30 days of the encounter This section includes the Chemistry and Hematology Lab Results on record with MD for the patient. Radiology Reports and Pathology Reports are provided separately, in subsequent sections. Lab Results This section contains the Chemistry/Hematology Results that were resulted 30 days before or 30 daysafter the date of the Encounter. Date/Time Source Result Type Result - Unit Interpretation Reference Range Comment Apr 20, 2024 03:24 PM [facility] LUPUS INHIBITOR PANEL Specimen Type: PLASMA No comment entered. Ordering Provider: ERIC ROMERO Report Released Date/Time: Apr 20, 2024 03:18 PM Reporting Lab: [facility] [id number] Performing Lab: [facility] [address] .dRVVT NORM. RATIO 0.96 {ratio} <1.15 .SILICA CLOT RATIO 1.12 {ratio} <1.18 LUPUS INHIBIT INTERP NEGATIVE -negative Apr 20, 2024 03:24 PM [facility] METHYLMALONIC ACID Specimen Type: SERUM No comment entered. Ordering Provider: ERIC ROMERO Report Released Date/Time: Apr 20, 2024 03:18 PM Reporting Lab: [facility] [id number] Performing Lab: [facility] [address] METHYLMALONIC ACID 234 nmol/L 0-400 Apr 20, 2024 03:24 PM [facility] PROTEIN C (FUNC) Specimen Type: PLASMA No comment entered. Ordering Provider: ERIC ROMERO Report Released Date/Time: Apr 20, 2024 03:18 PM Reporting Lab: [facility] [id number] Performing Lab: [facility] [address] PROTEIN C (FUNC) 94 70-140 Apr 20, 2024 03:24 PM [facility] PROTEIN S-FREE Specimen Type: PLASMA No comment entered. Ordering Provider: ERIC ROMERO Report Released Date/Time: Apr 20, 2024 03:18 PM Reporting Lab: [facility] [address] Performing Lab: [facility] [address] PROTEIN S-FREE 110 74-146 Apr 20, 2024 03:24 PM [facility] ANTI-CARDIOLIPIN WALKER PANEL Specimen Type: SERUM Comment: [...] additional information, please refer to .AGNES IGM:http://educa tion.Quality Systems.Tracab/faq/FA Q109 .AGNES IGM:(This link is being provided for informational/ .AGNES IGM:educational purposes only.) .AGNES IGM:Test Performed by [facility], .AGNES IGM:[employer] [place], .AGNES IGM:[address] [place], [place] .AGNES IGM:Lito Kruse M.D., Ph.D., Director of Laboratories .AGNES IGM: , CLIA [id number] Ordering Provider: ERIC ROMERO Report Released Date/Time: Apr 20, 2024 03:18 PM Reporting Lab: [facility] [address] Performing Lab: [facility] [id number] [place] [address] CARDIOLIPIN,IG G WALKER 2.5 SEE BELOW CARDIOLIPIN,IG M WALKER 11.3 SEE BELOW Apr 20, 2024 03:24 PM [facility] B 12 Specimen Type: SERUM No comment entered. Ordering Provider: ERIC ROMERO Report Released Date/Time: Apr 20, 2024 03:18 PM Reporting Lab: [facility] [address] Performing Lab: [facility] [address] B 12 336 pg/mL 213-816 Apr 20, 2024 03:24 PM [facility] FOLATE Specimen Type: SERUM No comment entered. Ordering Provider: ERIC ROMERO Report Released Date/Time: Apr 20, 2024 03:18 PM Reporting Lab: [facility] [address] Performing Lab: [facility] [address] FOLATE 17.5 ng/mL >7.0 Apr 20, 2024 03:24 PM [facility] BASIC METABOLIC PANEL+MG Specimen Type: PLASMA No comment entered. Ordering Provider: ERIC ROMERO Report Released Date/Time: Apr 20, 2024 03:18 PM Reporting Lab: [facility] [address] Performing Lab: [facility] [address] CREATININE 1.2 mg/dL 0.7-1.2 UREA NITROGEN 18 mg/dL 8-26 GLUCOSE 97 mg/dL 70-100 SODIUM 142 mmol/L 136-145 POTASSIUM 4.1 mmol/L 3.5-5.1 CHLORIDE 111 mmol/L H 98-107 CO2 22 mmol/L 22-29 CALCIUM 9.4 mg/dL 8.4-10.2 MAGNESIUM 1.9 mg/dL 1.6-2.6 ANION GAP 9 mmol/L 5-15 .CREAT EGFR(CKD-EPI) 62 >60 Apr 20, 2024 03:24 PM [facility] CBC & DIFF Specimen Type: BLOOD Comment: Automated Differential Performed Ordering Provider: ERIC ROMERO Report Released Date/Time: Apr 20, 2024 03:18 PM Reporting Lab: [facility] [address] Performing Lab: [facility] [address] WBC 9.3 4.0-11.0 RBC 4.71 4.60-6.20 HGB [...] 0.0 0.0-0.1 Apr 20, 2024 03:24 PM [facility] HEMOGLOBIN A1C Specimen Type: BLOOD Comment: Values [...] Apr 20, 2024 03:18 PM Reporting Lab: [facility] [address] Performing Lab: [facility] [address] HEMOGLOBIN A1C 5.5 4.0-6.0 Apr 20, 2024 03:24 PM [facility] IRON GROUP Specimen Type: SERUM No comment entered. Ordering Provider: ERIC ROMERO Report Released Date/Time: Apr 20, 2024 03:18 PM Reporting Lab: [facility] [address] Performing Lab: [facility] [address] IRON 45 ug/dL L 65-175 TIBC,CALCULATE D 313 ug/dL 250-425 FERRITIN 115.0 ng/mL 21.8-274.7 IRON SATURATION 14 L 20-50 TRANSFERRIN 250 mg/dL 163-382 Apr 20, 2024 03:24 PM [facility] PT/INR(ANTICOAG) Specimen Type: PLASMA No comment entered. Ordering Provider: ERIC ROMERO Report Released Date/Time: Apr 20, 2024 03:18 PM Reporting Lab: [facility] [address] Performing Lab: [facility] [address] .INR 1.2 H 0.8-1.1 .PT 13.5 s H 9.4-12.5 Apr 20, 2024 03:24 PM [facility] LIVER FUNCTION TESTS Specimen Type: PLASMA No comment entered. Ordering Provider: ERIC ROMERO Report Released Date/Time: Apr 20, 2024 03:18 PM Reporting Lab: [facility] [address] Performing Lab: [facility] [address] BILIRUBIN, TOTAL 0.5 mg/dL 0.2-1.2 ALKALINE PHOSPHATASE 67 U/L 40-150 ALT/SGPT 27 U/L <44 AST/SGOT 28 U/L 11-34 GAMMA GTP 35 U/L <54 Social History: Smoking Status (Most current) and Tobacco Use (All prior to encounter date) This section includes the most current, and the historical, smoking and tobacco- related health factors from the MD facility where the Encounter took place. Current Smoking Status This section includes the most current smoking, or tobacco-related health factor, from the MD facility where the Encounter took place. Date/Time Current Smoking Status Comment Manohar ity Apr 20, 2024 02:00 PM VA-TOBACCO NEVER USED CIGARETTES [facility] Tobacco Use History This section includes a history of the smoking, or tobacco-related health factors, that were collected on or before the date of the Encounter. The data comes from the MD facility where the Encounter took place. Date/Time Smoking Status/Tobacco Use Comment F acility Apr 20, 2024 02:00 PM VA-TOBACCO NEVER USED OTHER TYPE [facility] Encounter Notes: All associated encounter notes This section contains the clinical notes associated to the Encounter. Date/Time Encounter Note(s) Provider Source Apr 21, 2024 08:10 AM PHARMACY CONSULT: LOCAL TITLE: PHARMACY PRIOR AUTHORIZATION APPROVED CONSULT STANDARD TITLE: PHARMACY CONSULT DATE OF NOTE: APR 21, 2024@08:10 ENTRY DATE: APR 21, 2024@08:10:08 AUTHOR: BRANDI GUTIÉRREZ COSIGNER: URGENCY: STATUS: COMPLETED The medical record has been reviewed with regard to this prior authorization drug request. Medication requested: BUDESONIDE 160/FORMOTER 4.5MCG 120D INH Medication indication: asthma Medical history relevant to this request: use approved per FINESSE guidelines The request is approved - A documented therapeutic failure of the preferred formulary alternative(s) exists Active Outpatient Medications (including Supplies): APIXABAN 5MG TAB TAKE ONE TABLET BY MOUTH EVERY 12 HOURS ACTIVE TO TREAT AND/OR PREVENT BLOOD CLOTS BUDESONIDE 160/FORMOTER 4.5MCG 120D INH INHALE 1 PUFF BY PENDING INHALATION EVERY DAY Non-VA ATORVASTATIN CALCIUM 10MG TAB 10MG MOUTH EVERY DAY ACTIVE Non-VA CALCIUM 250MG/VITAMIN D 125 UNT TAB 1 TABLET MOUTH ACTIVE EVERY DAY Non-VA FERROUS GLUCONATE 324MG TAB 324MG MOUTH EVERY DAY ACTIVE Non-VA FLUTICASONE SOLN,NASAL EACH NOSTRIL ACTIVE Non-VA FOLIC ACID 1MG TAB 1MG MOUTH EVERY DAY ACTIVE Non-VA METOPROLOL TARTRATE TAB 12.5MG MOUTH TWICE A DAY ACTIVE Non-VA OMEPRAZOLE 40MG EC CAP 40MG MOUTH EVERY DAY ACTIVE /es/ BRANDI GUTIÉRREZ Pharmacist Signed: 04/21/2024 08:11 BRANDI GUTIÉRREZ [facility]
--- OUTSIDE RECORDS SUMMARY | 2024-05-20 13:45 | XMS_ITS | Encounter Summary ---
Author Name Department of Vetera Affairs ([place]) Organization [facility] Address [address] [place] [id number] Care Team Providers Care Blank Driller Name Role Phone ERIC ROMERO Primary Care [...] to Policy Mota MEDICA (WNR) MEDICARE ADVANTAGE [facility] ([facility]) Jun 03, 2019 [id number] [phone] ROB CASTREJON PATIENT MEDICA [facility] ([facility]) MEDICARE [facility] ([facility]) Jun 03, 2017 [id number] [phone] ROB CASTREJON PATIENT MEDICA [facility] ([facility]) MEDICARE ADVANTAGE [facility] ([facility]) Jun 03, 2017 [id number] ROB CASTREJON PATIENT MEDICARE PART D ([facility]) MEDICARE (M) PART D Apr 03, 2009 PART D [id number] ROB CASTREJON PATIENT [facility] ([facility]) FOR[facility]LY [facility] ORGAN[facility] MEDIC ARE REPLA HUGH T Apr 03, 2009 [id number] ROB CASTREJON PATIENT Selected Encounter This section includes the information on record at [place] for the Encounter. Date/Time Encounter Type Encounter Description Reason Pro vider Source Apr 20, 2024 04:07 PM Outpatient Encounter CLINICAL PHARMACY IHE Encounter Template Text not used by [place] Plan of Treatment: Future Appointments (+ 6 months) and Future Tests (+/- 45 days) The Plan of Treatment section includes future care activities for the patient from all [place] treatmentfacilities. This section includes future appointments and future orders which are active, pending or scheduled. Future Appointments This section includes appointments that were scheduled to occur 6 months from the date of the Encounter, up to a maximum of 20 appointments. The data comes from all [place] treatment facilities. Appointment Date/Time Appointment Type Appointme nt Facility Name May 21, 2024 09:00 AM AMBULATORY - NONE [facility] May 25, 2024 11:20 AM AMBULATORY - MEDICINE [facility] Active, Pending, and Scheduled Orders This section includes a listing of several types of active, pending, and scheduled orders, including clinic medications orders, diagnostic test orders, procedure orders and consult orders; where the start date of the order is 45 days before the date of the Encounter or 45 days after the date of theEncounter. The data comes from all [place] treatment facilities. Test Date/Time Test Type Test Details Facility Name May 21, 2024 12:00 AM Laboratory - Chemi stry Order APIXABAN PLASMA SP ONCE [facility] Lab Results: +/- 30 days of the encounter This section includes the Chemistry and Hematology Lab Results on record with [place] for the patient. Radiology Reports and Pathology [...] Apr 20, 2024 03:18 PM Reporting Lab: [facility] [address] Performing Lab: [facility] [address] .dRVVT NORM. RATIO 0.96 {ratio} <1.15 .SILICA CLOT RATIO 1.12 {ratio} <1.18 LUPUS INHIBIT INTERP NEGATIVE -negative Apr 20, 2024 03:[address] [facility] METHYLMALONIC ACID Specimen Type: SERUM No comment entered. Ordering Provider: ERIC ROMERO Report Released Date/Time: Apr 20, 2024 03:18 PM Reporting Lab: [facility] [address] Performing Lab: [facility] [address] METHYLMALONIC ACID 234 nmol/L 0-400 Apr 20, 2024 03:[address] [facility] PROTEIN C (FUNC) Specimen Type: PLASMA No comment entered. Ordering Provider: ERIC ROMERO Report Released Date/Time: Apr 20, 2024 03:18 PM Reporting Lab: [facility] [address] Performing Lab: [facility] [address] PROTEIN C (FUNC) 94 70-140 Apr 20, 2024 03:[address] [facility] PROTEIN S-FREE Specimen Type: PLASMA No comment entered. Ordering Provider: ERIC ROMERO Report Released Date/Time: Apr 20, 2024 03:18 PM Reporting Lab: [facility] [address] Performing Lab: [facility] [address] PROTEIN S-FREE 110 74-146 Apr 20, 2024 [...] additional information, please refer to .AGNES IGM:[email or web address] [email or web address]/faq/FA Q109 .AGNES IGM:(This link is being provided for informational/ .AGNES IGM:educational purposes only.) .AGNES IGM:Test Performed by [facility], .AGNES IGM:[facility], .AGNES IGM:[address] [place], [place] .AGNES IGM:Lito Kruse M.D., Ph.D., Director of Laboratories .AGNES IGM: , CLIA [id number] Ordering Provider: ERIC ROMERO Report Released Date/Time: Apr 20, 2024 03:18 PM Reporting Lab: [facility] [address] Performing Lab: [facility] [address] [facility] CARDIOLIPIN,IG G WALKER 2.5 SEE BELOW CARDIOLIPIN,IG M WALKER 11.3 SEE BELOW Apr 20, 2024 03:24 PM [facility] 12 Specimen Type: SERUM No comment entered. Ordering Provider: ERIC ROMERO Report Released Date/Time: Apr 20, 2024 03:18 PM Reporting Lab: [facility] [address] Performing Lab: [facility] [address] B 12 336 pg/mL 213-816 Apr 20, 2024 03:[address] [facility] FOLATE Specimen Type: SERUM No comment entered. Ordering Provider: EIRC ROMERO Report Released Date/Time: Apr 20, 2024 03:18 PM Reporting Lab: [facility] [address] Performing Lab: [facility] [address] FOLATE 17.5 ng/mL >7.0 Apr 20, 2024 03:[address] [facility] BASIC METABOLIC PANEL+MG Specimen Type: PLASMA No comment entered. Ordering Provider: ERIC ROMERO Report Released Date/Time: Apr 20, 2024 03:18 PM Reporting Lab: [facility] [address] Performing Lab: [facility] [address] CREATININE 1.2 mg/dL 0.7-1.2 UREA NITROGEN 18 [...] Apr 20, 2024 03:18 PM Reporting Lab: [facility] [address] Performing Lab: [facility] [address] WBC 9.3 4.0-11.0 RBC 4.71 4.60-6.20 HGB [...] Apr 20, 2024 03:18 PM Reporting Lab: [facility] [address] Performing Lab: [facility] [address] HEMOGLOBIN A1C 5.5 4.0-6.0 Apr 20, 2024 03:[address] [facility] IRON GROUP Specimen Type: SERUM No comment entered. Ordering Provider: ERIC ROMERO Report Released Date/Time: Apr 20, 2024 03:18 PM Reporting Lab: [facility] [address] Performing Lab: [facility] [address] IRON 45 ug/dL L 65-175 TIBC,CALCULATE D 313 ug/dL 250-425 FERRITIN 115.0 ng/mL 21.8-274.7 IRON SATURATION 14 L 20-50 TRANSFERRIN 250 mg/dL 163-382 Apr 20, 2024 03:[address] [facility] PT/INR(ANTICOAG) Specimen Type: PLASMA No comment entered. Ordering Provider: ERIC ROMERO Report Released Date/Time: Apr 20, 2024 03:18 PM Reporting Lab: [facility] [address] Performing Lab: [facility] [address] .INR 1.2 H 0.8-1.1 .PT 13.5 s H 9.4-12.5 Apr 20, 2024 03:[address] [facility] LIVER FUNCTION TESTS Specimen Type: PLASMA No comment entered. Ordering Provider: ERIC ROMERO Report Released Date/Time: Apr 20, 2024 03:18 PM Reporting Lab: [facility] [address] Performing Lab: [facility] [address] BILIRUBIN, TOTAL 0.5 mg/dL 0.2-1.2 ALKALINE PHOSPHATASE [...] 137/72 20 92 0 72 244 33 [facility] Social History: Smoking Status (Most current) and Tobacco Use (All prior to encounter date) This section includes the most current, and the historical, smoking and tobacco- related health factors from the [place] facility where the Encounter took place. Current Smoking Status This section includes the most current smoking, or tobacco-related health factor, from the [place] facility where the Encounter took place. Date/Time Current Smoking Status Comment Manohar sotomayor Apr 20, 2024 02:00 PM [place]-TOBACCO NEVER USED CIGARETTES [facility] Tobacco Use History This section includes a history of the smoking, or tobacco-related health factors, that were collected on or before the date of the Encounter. The data comes from the [place] facility where the Encounter took place. Date/Time Smoking Status/Tobacco Use Comment Genny davis Apr 20, 2024 02:00 PM [place]-TOBACCO NEVER USED OTHER TYPE [facility] Encounter Notes: All associated encounter notes This section contains the clinical notes associated to the Encounter. Date/Time Encounter Note(s) Provider Source Apr 20, 2024 04:07 PM EDUCATION NOTE: LOCAL TITLE: EDUCATION MEDICATION INSTRUCTION STANDARD TITLE: EDUCATION NOTE DATE OF NOTE: APR 20, 2024@16:07 ENTRY DATE: APR 20, 2024@16:12:14 AUTHOR: MEGHAN OSCAR EXP COSIGNER: URGENCY: STATUS: COMPLETED MEDICATION EDUCATION PARTICIPANTS: Patient TEACHING STRATEGY: Face to Face READINESS TO LEARN: No barriers identified LEARNING NEEDS/OBJECTIVES Participant(s) indicates readiness to learn and has been instructed on indications, side effects, and directions for use. Participant(s) will receive medication information sheets for medications filled. Education included discussion of the following: Changes in medication(s): Apixaban Of note, patient has been on this from the outside (prescribed by [facility]). Per chart review, he is using for history of clots and afib. He did not meet criteria for dose reduction, even though he stated that [facility] was prescribing 2.5mg BID for him. Per [facility], most recent apixaban prescription was written for 5mg BID; however, patient reports he has been taking 2.5mg BID because he feels that is sufficient. Respite Coordinator educated patient on risks of taking a dose lower than what was prescribed. Prescription was processed for 5mg BID. PATIENT/FAMILY RESPONSE (OUTCOME): Verbalizes critical information about the topic FOLLOW-UP RECOMMENDED: None needed /tao/ MEGHAN OSCAR pharmacist Signed: 04/20/2024 16:[address] [facility]
--- OUTSIDE RECORDS SUMMARY | 2024-05-20 13:45 | XMS_ITS | Encounter Summary ---
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 Name Role Phone ERIC ROMERO Primary Care [...] to Policy [place] MEDICA (WNR) MEDICARE ADVANTAGE [facility] ([facility]) Jun 03, 2019 [id number] MARIA ELENAKatherineROB PATIENT MEDICA [facility] (WNR) MEDICARE ADVANTAGE [facility] ([facility]) Jun 03, 2017 [id number] [phone] ADRIANBRISSAKatherineROB WEINSTEIN PATIENT MEDICA [facility] (WNR) MEDICARE ADVANTAGE [facility] (WNR) Jun 03, 2017 [id number] [phone] ROB CASTREJON PATIENT MEDICARE PART D (WN) MEDICARE (M) PART D Apr 03, 2009 PART D [id number] ROB CASTREJON PATIENT [facility] (WN) [facility] MEDIC ARE DHRUVA HUGH Peacock Apr 03, 2009 [id number] ROB CASTREJON PATIENT Selected Encounter This section includes the information on record at [place] for the Encounter. Date/Time Encounter Type Encounter Description Reason Pro vider Source Feb 25, 2024 12:00 AM Outpatient Encounter EVENT (HISTORICAL) IHE Encounter Template Text not used by [place] Plan of Treatment: Future Appointments (+ 6 months) and Future Tests (+/- 45 days) The Plan of Treatment section includes future care activities for the patient from all [place] treatmentfacilities. This section includes future appointments and future orders which are active, pending or scheduled. Future Appointments This section includes appointments that were scheduled to occur 6 months from the date of the Encounter, up to a maximum of 20 appointments. The data comes from all [place] treatment facilities. Appointment Date/Time Appointment Type Appointme nt Facility Name Apr 20, 2024 02:00 PM AMBULATORY - MEDICINE [facility] Apr 20, 2024 03:30 PM AMBULATORY - NONE [facility] May 21, 2024 09:00 AM AMBULATORY - NONE [facility] May 25, 2024 11:20 AM AMBULATORY - MEDICINE [facility] Immunizations: All administered on the encounter date This section contains immunizations associated to the Encounter. Immunization Series Date Issued Reaction Comments COVID-19 (MODERNA), MRNA, LN P-S, PF, 50 MCG/0.5 ML (AGES 12+ YEARS) Feb 25, 2024 INFLUENZA, HIGH-DOSE, TRIVALENT, PF Feb 24
--- OUTSIDE RECORDS SUMMARY | 2024-05-20 13:45 | XMS_ITS | Continuity of Care Document ---
Author Name [facility] Organization [facility] Care Team Providers Care Dog Walker Name Role Phone [facility] Unavailable Unavailable Problems Combined list of problems from [facility] and [facility] facilities. It does not include entries that were removed or entered in error. Problem Status Onset Date Problem Type Date of Resolution Comments Source Acquired iron deficiency anemia due to increased iron requirement Active Condition [facility] Benign essential hypertension Active Condition [facility] Carcinoma of prostate Active Condition [facility] Chronic atrial fibrillation Active Condition [facility] Chronic pulmonary embolism Active Condition [facility] History of total colectomy Active Condition [facility] Long-term current use of anticoagulant Active Condition [facility] Obstructive sleep apnea syndrome Active Condition [facility] Rhinitis Active Condition [facility] Ulcerative colitis Active Condition [facility] Diagnosis: ICD-10-CM Z79.01 terminal carman (current) use of anticoagulants Active Diagnosis [facility] Diagnosis: ICD-10-CM J45.998 Other asthma Active Diagnosis [facility] Diagnosis: ICD-10-CM 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 Medication Details Route Status Patient Instructions Prescription Expires Prescription Number Last Dispense Date Ordering Provider Order Date Order Qty Source APIXABAN 5MG TAB TAKE ONE TABLET BY MOUTH EVERY 12 HOURS TO TREAT AND/OR PREVENT BLOOD CLOTS ORAL ACTIVE 05/20/2024 [id number] Mayito ROMERO 2023 60 [facility] ATORVASTATI N CA 10MG TAB TAKE ONE TABLET BY MOUTH EVERY DAY ORAL ACTIVE Mayito ROMERO 2023 [facility] BUDESONIDE 160MCG/FORM OTEROL FUM 4.5MCG/SPRA Y INHL,ORAL,1 0.2GM INHALE 1 PUFF BY INHALATI ON TWICE A DAY AND INHALE 1 PUFF NEEDED FOR SHORTNES S OF BREATH *MAXIMUM 12 PUFFS DAILY RESPIR ATORY (INHAL ATION) ACTIVE 04/22/2025 [id number] Mayito ROMERO 2023 2 [facility] CALCIUM 250MG/VITAM IN D 125UNT TAB TAKE ONE TABLET BY MOUTH EVERY DAY ORAL ACTIVE Mayito ROMERO 2023 [facility] FERROUS GLUCONATE 324MG TAB TAKE ONE TABLET BY MOUTH EVERY DAY ORAL ACTIVE Mayito ROMERO 2023 [facility] FLUTICASONE SOLN,NASAL SPRAY IN EACH NOSTRIL EVERY DAY NASAL ACTIVE Mayito ROMERO 2023 [facility] FOLIC ACID 1MG TAB TAKE ONE TABLET BY MOUTH EVERY DAY ORAL ACTIVE Mayito ROMERO 2023 [facility] METOPROLOL TARTRATE TAB TAKE 12.5MG BY MOUTH TWICE A DAY ORAL ACTIVE Mayito ROMERO 2023 [facility] OMEPRAZOLE 40MG CAP,EC TAKE 1 CAPSULE BY MOUTH EVERY DAY ORAL ACTIVE Mayito ROMERO 2023 [facility] Immunizations Combined list of available immunizations from the Department of Defense and Veterans Affairs facilities. Immunization Series Date Given Administered By Site Reaction Lot Number CVX Code Drug Cash Specialist Status Comments Source PNEUMOCOCCAL CONJUGATE PCV20, POLYSACCHARID E [id number] CONJUGATE, ADJUVANT, PF 2023 216 complet ed [facility] COVID-19 (MODERNA), MRNA, LNP-S, PF, 50 MCG/0.5 ML (AGES 12+ YEARS) 2023 312 complet ed [facility] INFLUENZA, HIGH-DOSE, TRIVALENT, PF 2023 135 complet ed [facility] TDAP 2022 115 complet ed [facility] RSV, RECOMBINANT, PROTEIN SUBUNIT RSVPREF, ADJUVANT RECONSTITUTED , 0.5 ML, PF 2022 303 complet ed [facility] COVID-19 (PFIZER), MRNA, LNP-S, PF, CHAPIN-SUCROSE, 30 MCG/0.3 ML (AGES 12+ YEARS) 2022 309 complet [facility] INFLUENZA, HIGH-DOSE, QUADRIVALENT, PF 2022 197 complet [facility] COVID-19 ([facility]), MRNA, LNP-S, BIVALENT, PF, 30 MCG/0.3 ML DOSE 2022 300 complet [facility] COVID-19 ([facility]), MRNA, LNP-S, BIVALENT, PF, 30 MCG/0.3 ML DOSE 2021 300 complet [facility] INFLUENZA, HIGH-DOSE, QUADRIVALENT, PF 2021 197 complet [facility] COVID-19 ([facility]), MRNA, LNP-S, PF, 30 MCG/0.3 ML DOSE 2021 208 complet [facility] INFLUENZA, HIGH-DOSE, QUADRIVALENT, PF 2020 197 complet [facility] COVID-19 ([facility]), MRNA, LNP-S, PF, 30 MCG/0.3 ML DOSE 2020 208 complet [facility] COVID-19 ([employer]), MRNA, LNP-S, PF, 30 MCG/0.3 ML DOSE 2020 208 complet [facility] COVID-19 ([facility]), MRNA, LNP-S, PF, 30 MCG/0.3 ML DOSE 2020 208 complet [facility] INFLUENZA, SPLIT VIRUS, QUADRIVALENT, PF 2019 150 complet [facility] INFLUENZA, HIGH-DOSE, TRIVALENT, PF 2018 135 complet [facility] ZOSTER RECOMBINANT 2018 187 complet [facility] ZOSTER RECOMBINANT 2018 187 complet [facility] INFLUENZA, UNSPECIFIED FORMULATION 2017 88 complet [facility] INFLUENZA, HIGH-DOSE, TRIVALENT, PF 2016 135 complet [facility] INFLUENZA, HIGH-DOSE, TRIVALENT, PF 2015 135 complet ed [facility] TYPHOID, VICPS 2014 101 complet ed [facility] INFLUENZA, UNSPECIFIED FORMULATION 2014 88 complet ed [facility] HEP A, ADULT 2014 52 complet ed [facility] PNEUMOCOCCAL CONJUGATE PCV 13 2014 133 complet ed [facility] YELLOW FEVER LIVE 2014 37 complet ed [facility] INFLUENZA, HIGH-DOSE, TRIVALENT, PF 2013 135 complet ed [facility] HEP A, ADULT 2012 52 complet ed [facility] TYPHOID, VICPS 2012 101 complet ed [facility] INFLUENZA, HIGH-DOSE, TRIVALENT, PF 2012 135 complet [facility] PNEUMOCOCCAL POLYSACCHARID E PPV23 2012 33 complet [facility] TDAP 2012 115 complet [facility] INFLUENZA, UNSPECIFIED FORMULATION 2011 88 complet [facility] INFLUENZA, SPLIT VIRUS, TRIVALENT, PRESERVATIVE 2010 141 complet [facility] INFLUENZA, UNSPECIFIED FORMULATION 2010 88 complet [facility] INFLUENZA, SPLIT VIRUS, TRIVALENT, PF 2009 140 complet [facility] ZOSTER LIVE 2009 121 complet [facility] NOVEL INFLUENZA-H1N 1-09 2008 127 complet [facility] PNEUMOCOCCAL POLYSACCHARID E PPV23 2008 33 complet [facility] INFLUENZA, SPLIT VIRUS, TRIVALENT, PRESERVATIVE 2008 141 complet [facility] PNEUMOCOCCAL POLYSACCHARID E PPV23 2007 33 complet ed [facility] TD (ADULT), 2 LF TETANUS TOXOID, PRESERVATIVE FREE, ADSORBED 2007 09 complet [facility] INFLUENZA, SPLIT VIRUS, TRIVALENT, PF 2004 140 complet [facility] Results Combined list of recent chemistry, hematology and other laboratory results from Department of Defense and Veterans Affairs, ranging from 15 months to all on record, depending upon the facility. Order Name Results Value Reference Range Date Interpretation Specimen Comments Source LUPUS INHIBITO R PANEL DRVVT ACTUAL/NOR MAL [PRESENCE] IN PLATELET POOR PLASMA BY COAGULATIO N ASSAY 0.96 {ratio} <1.15 - 1.15 04/20 Specimen Type: PLASMA No comment entered. Ordering Provider: ALENA ROMERO Report Released Date/Time: Apr 20, 2024 03:18 PM Reporting Lab: [facility] [address] Performing Lab: [facility] [address] [place] [facility] LUPUS INHIBITO R PANEL BIJAN VIPER VENOM TIME IN PLATELET POOR PLASMA BY COAGULATIO N ASSAY 1.12 {ratio} <1.18 - 1.18 04/20 Specimen Type: PLASMA No comment entered. Ordering Provider: ALENA ROMERO Report Released Date/Time: Apr 20, 2024 03:18 PM Reporting Lab: [facility] [address] Performing Lab: [facility] [address] [place] [facility] LUPUS INHIBITO R PANEL LUPUS ANTICOAGUL ANT [INTERPRET ATION] IN PLATELET POOR PLASMA NEGATIVE -negative 04/20 Specimen Type: PLASMA No comment entered. Ordering Provider: ALENA ROMERO Report Released Date/Time: Apr 20, 2024 03:18 PM Reporting Lab: [facility] [address] Performing Lab: [facility] [address] [facility] METHYLMA LONIC ACID METHYLMALO KIKO [MOLES/VOL UME] IN SERUM OR PLASMA 234 nmol/L 0 - 400 04/20 Specimen Type: SERUM No comment entered. Ordering Provider: ALENA ROMERO Report Released Date/Time: Apr 20, 2024 03:18 PM Reporting Lab: [facility] [address] Performing Lab: [facility] [address] [place] [facility] PROTEIN C (FUNC) PROTEIN C ACTUAL/NOR MAL IN PLATELET POOR PLASMA BY COAGULATIO N ASSAY 94 70 - 140 04/20 Specimen Type: PLASMA No comment entered. Ordering Provider: ALENA ROMERO Report Released Date/Time: Apr 20, 2024 03:18 PM Reporting Lab: [facility] [address] Performing Lab: [facility] [address] [place] [facility] PROTEIN S-FREE PROTEIN S FREE AG ACTUAL/NOR MAL IN PLATELET POOR PLASMA BY IMMUNOASSA Y 110 74 - 146 04/20 Specimen Type: PLASMA No comment entered. Ordering Provider: ALENA ROMERO Report Released Date/Time: Apr 20, 2024 03:18 PM Reporting Lab: [facility] [address] Performing Lab: [facility] [address] [place] [facility] ANTI-CAR DIOLIPIN WALKER PANEL CARDIOLIPI N IGG AB [UNITS/VOL UME] IN SERUM OR PLASMA 2.5 04/20 Specimen Type: SERUM Comment: .AGNES IGG:REFEREN CE RANGE: <20.0 GPL-U/mL .AGNES IGG:Value Interpretat ion .AGNES IGG:----- --- .AGNES IGG:< 20.0 Antibody not detected .AGNES IGG:> or = 20.0 Antibody detected .AGNES IGM:REFEREN CE RANGE: <20.0 MPL-U/mL .AGNES IGM:Value Interpretat ion .AGNES IGM:----- --- .AGNES IGM:< 20.0 Antibody not detected .AGNES IGM:> or = 20.0 Antibody detected .AGNES IGM:The antiphospho lipid antibody syndrome (APS) is a .AGNES IGM:clinica l-pathologi c correlation that includes a .AGNES IGM:clinica l event (e.g. arterial or venous thrombosis, .AGNES IGM:pregnan cy morbidity) and persistent positive .AGNES IGM:antipho spholipid antibodies (IgM, IgG Cardiolipin or .AGNES IGM:b2GPI antibodies greater than the 99th percentile; .AGNES IGM:or a lupus anticoagula nt). Internation al consensus .AGNES IGM:guideli masoud for APS suggest waiting at least 12 weeks .AGNES IGM:before retesting to confirm antibody persistence . .AGNES IGM:The Systemic Lupus Internation al Collaborati Clinics .AGNES IGM:immunol ogical classificat ion criteria for systemic .AGNES IGM:lupus erythematos us (SLE) include testing for .AGNES IGM:isotype IgA, which has yet to be incorporate d into .AGNES IGM:APS criteria. Low level antiphospho lipid antibodies .AGNES IGM:may sometimes be detected in the setting of infection, .AGNES IGM:drug therapy or aging. .AGNES IGM:For additional information , please refer to .AGNES IGM:http:// [email or web address]/fa q/ZNL027 .AGNES IGM:(This link is being provided for information al/ .AGNES IGM:educati onal purposes only.) .AGNES IGM:[facility], .AGNES IGM:[facility], .AGNES IGM:[id number] [place], [place] .AGNES IGM:Lito Kruse M.D., Ph.D., Director of Laboratorie s .AGNES IGM: , CLIA [id number] Ordering Provider: ALENA ROMERO Report Released Date/Time: Apr 20, 2024 03:18 PM Reporting Lab: [facility] [address] Performing Lab: [address] [place] [facility] ANTI-CAR DIOLIPIN WALKER PANEL CARDIOLIPI N IGM AB [UNITS/VOL UME] IN SERUM OR PLASMA 11.3 04/20 Specimen Type: SERUM Comment: .AGNES IGG:REFEREN CE RANGE: <20.0 GPL-U/mL .AGNES IGG:Value Interpretat ion .AGNES IGG:----- --- .AGNES IGG:< 20.0 Antibody not detected .AGNES IGG:> or = 20.0 Antibody detected .AGNES IGM:REFEREN CE RANGE: <20.0 MPL-U/mL .AGNES IGM:Value Interpretat ion .AGNES IGM:----- --- .AGNES IGM:< 20.0 Antibody not detected .AGNES IGM:> or = 20.0 Antibody detected .AGNES IGM:The antiphospho lipid antibody syndrome (APS) is a .AGNES IGM:clinica l-pathologi c correlation that includes a .AGNES IGM:clinica l event (e.g. arterial or venous thrombosis, .AGNES IGM:pregnan cy morbidity) and persistent positive .AGNES IGM:antipho spholipid antibodies (IgM, IgG Cardiolipin or .AGNES IGM:b2GPI antibodies greater than the 99th percentile; .AGNES IGM:or a lupus anticoagula nt). Internation al consensus .AGNES IGM:guideli masoud for APS suggest waiting at least 12 weeks .AGNES IGM:before retesting to confirm antibody persistence . .AGNES IGM:The Systemic Lupus Internation al Collaborati Clinics .AGNES IGM:immunol ogical classificat ion criteria for systemic .AGNES IGM:lupus erythematos us (SLE) include testing for .AGNES IGM:isotype IgA, which has yet to be incorporate d into .AGNES IGM:APS criteria. Low level antiphospho lipid antibodies .AGNES IGM:may sometimes be detected in the setting of infection, .AGNES IGM:drug therapy or aging. .AGNES IGM:For additional information , please refer to .AGNES IGM:http:// [email or web address]/fa q/VON374 .AGNES IGM:(This link is being provided for information al/ .AGNES IGM:educati onal purposes only.) .AGNES IGM:Test Performed by [employer] [facility], .AGNES IGM:[facility], .AGNES IGM:[id number] [place] .AGNES IGM:Lito Kruse M.D., Ph.D., Director of Laboratorie s .AGNES IGM: , CLIA [id number] Ordering Provider: ALENA ROMERO Report Released Date/Time: Apr 20, 2024 03:18 PM Reporting Lab: [facility] [address] Performing Lab: [facility] [address] [facility] [place] [facility] B 12 COBALAMIN (VITAMIN B12) [MASS/VOLU ME] IN SERUM OR PLASMA 336 pg/mL 213 - 816 04/20 Specimen Type: SERUM No comment entered. Ordering Provider: ALENA ROMERO Report Released Date/Time: Apr 20, 2024 03:18 PM Reporting Lab: [facility] [address] Performing Lab: [facility] [address] [place] [facility] FOLATE FOLATE [MASS/VOLU ME] IN SERUM OR PLASMA 17.5 ng/mL 7.0 04/20 Specimen Type: SERUM No comment entered. Ordering Provider: ALENA ROMERO Report Released Date/Time: Apr 20, 2024 03:18 PM Reporting Lab: [facility] [address] Performing Lab: [facility] [address] [place] [facility] BASIC METABOLI C PANEL+MG CREATININE [MASS/VOLU ME] IN SERUM OR PLASMA 1.2 mg/dL 0.7 - 1.2 04/20 Specimen Type: PLASMA No comment entered. Ordering Provider: ALENA ROMERO Report Released Date/Time: Apr 20, 2024 03:18 PM Reporting Lab: [facility] [address] Performing Lab: [facility] [address] [place] [facility] BASIC METABOLI C PANEL+MG UREA NITROGEN [MASS/VOLU ME] IN SERUM OR PLASMA 18 mg/dL 8 - 26 04/20 Specimen Type: PLASMA No comment entered. Ordering Provider: ALENA ROMERO Report Released Date/Time: Apr 20, 2024 03:18 PM Reporting Lab: [facility] [address] Performing Lab: [facility] [address] [place] [facility] BASIC METABOLI C PANEL+MG GLUCOSE [MASS/VOLU ME] IN SERUM OR PLASMA 97 mg/dL 70 - 100 04/20 Specimen Type: PLASMA No comment entered. Ordering Provider: ALENA ROMERO Report Released Date/Time: Apr 20, 2024 03:18 PM Reporting Lab: [facility] [address] Performing Lab: [facility] [address] [place] [facility] BASIC METABOLI C PANEL+MG SODIUM [MOLES/VOL UME] IN SERUM OR PLASMA 142 mmol/L 136 - 145 04/20 Specimen Type: PLASMA No comment entered. Ordering Provider: ALENA ROMERO Report Released Date/Time: Apr 20, 2024 03:18 PM Reporting Lab: [facility] [address] Performing Lab: [facility] [address] [place] [facility] BASIC METABOLI C PANEL+MG POTASSIUM [MOLES/VOL UME] IN SERUM OR PLASMA 4.1 mmol/L 3.5 - 5.1 04/20 Specimen Type: PLASMA No comment entered. Ordering Provider: ALENA ROMERO Report Released Date/Time: Apr 20, 2024 03:18 PM Reporting Lab: [facility] [address] Performing Lab: [facility] [address] [place] [facility] BASIC METABOLI C PANEL+MG CHLORIDE [MOLES/VOL UME] IN SERUM OR PLASMA 111 mmol/L 98 - 107 04/20 H Specimen Type: PLASMA No comment entered. Ordering Provider: ALENA ROMERO Report Released Date/Time: Apr 20, 2024 03:18 PM Reporting Lab: [facility] [address] Performing Lab: [facility] [address] [place] [facility] BASIC METABOLI C PANEL+MG CARBON DIOXIDE, TOTAL [MOLES/VOL UME] IN SERUM OR PLASMA 22 mmol/L 22 - 29 04/20 Specimen Type: PLASMA No comment entered. Ordering Provider: ALENA ROMERO Report Released Date/Time: Apr 20, 2024 03:18 PM Reporting Lab: [facility] [address] Performing Lab: [facility] [address] [place] [facility] BASIC METABOLI C PANEL+MG CALCIUM [MASS/VOLU ME] IN SERUM OR PLASMA 9.4 mg/dL 8.4 - 10.2 04/20 Specimen Type: PLASMA No comment entered. Ordering Provider: ALENA ROMERO Report Released Date/Time: Apr 20, 2024 03:18 PM Reporting Lab: [facility] [address] Performing Lab: [facility] [address] [place] [facility] BASIC METABOLI C PANEL+MG MAGNESIUM [MASS/VOLU ME] IN SERUM OR PLASMA 1.9 mg/dL 1.6 - 2.6 04/20 Specimen Type: PLASMA No comment entered. Ordering Provider: ALENA ROMERO Report Released Date/Time: Apr 20, 2024 03:18 PM Reporting Lab: [facility] [address] Performing Lab: [facility] [address] [place] [facility] BASIC METABOLI C PANEL+MG ANION GAP IN SERUM OR PLASMA 9 mmol/L 5 - 15 04/20 Specimen Type: PLASMA No comment entered. Ordering Provider: ALENA ROMERO Report Released Date/Time: Apr 20, 2024 03:18 PM Reporting Lab: [facility] [address] Performing Lab: [facility] [address] [place] [facility] BASIC METABOLI C PANEL+MG GLOMERULAR FILTRATION RATE/1.73 SQ M.PREDICTE D [VOLUME RATE/AREA] IN SERUM, PLASMA OR BLOOD BY CREATININE -BASED FORMULA (CKD-EPI 2020) 62 60 04/20 Specimen Type: PLASMA No comment entered. Ordering Provider: ALENA ROMERO Report Released Date/Time: Apr 20, 2024 03:18 PM Reporting Lab: [facility] [address] Performing Lab: [facility] [address] [place] [facility] CBC & DIFF LEUKOCYTES [#/VOLUME] IN BLOOD BY AUTOMATED COUNT 9.3 4.0 - 11.0 04/20 Specimen Type: BLOOD Comment: Automated Differentia l Performed Ordering Provider: ALENA ROMERO Report Released Date/Time: Apr 20, 2024 03:18 PM Reporting Lab: [facility] [address] Performing Lab: [facility] [address] [place] [facility] CBC & DIFF ERYTHROCYT ES [#/VOLUME] IN BLOOD BY AUTOMATED COUNT 4.71 4.60 - 6.20 04/20 Specimen Type: BLOOD Comment: Automated Differentia l Performed Ordering Provider: ALENA ROMERO Report Released Date/Time: Apr 20, 2024 03:18 PM Reporting Lab: [facility] [address] Performing Lab: [facility] [address] [place] [facility] CBC & DIFF HEMOGLOBIN [MASS/VOLU ME] IN BLOOD 14.2 g/dL 13.5 - 17.9 04/20 Specimen Type: BLOOD Comment: Automated Differentia l Performed Ordering Provider: ALENA ROMERO Report Released Date/Time: Apr 20, 2024 03:18 PM Reporting Lab: [facility] [address] Performing Lab: [facility] [address] [place] [facility] CBC & DIFF HEMATOCRIT [VOLUME FRACTION] OF BLOOD BY AUTOMATED COUNT 43.9 41.0 - 54.0 04/20 Specimen Type: BLOOD Comment: Automated Differentia l Performed Ordering Provider: ALENA ROMERO Report Released Date/Time: Apr 20, 2024 03:18 PM Reporting Lab: [facility] [address] Performing Lab: [facility] [address] [place] [facility] CBC & DIFF MCV [ENTITIC VOLUME] BY AUTOMATED COUNT 93.2 fL 80.0 - 100.0 04/20 Specimen Type: BLOOD Comment: Automated Differentia l Performed Ordering Provider: ALENA ROMERO Report Released Date/Time: Apr 20, 2024 03:18 PM Reporting Lab: [facility] [address] Performing Lab: [facility] [address] [place] [facility] CBC & DIFF MCH [ENTITIC MASS] BY AUTOMATED COUNT 30.1 pg 27.0 - 33.0 04/20 Specimen Type: BLOOD Comment: Automated Differentia l Performed Ordering Provider: ALENA ROMERO Report Released Date/Time: Apr 20, 2024 03:18 PM Reporting Lab: [facility] [address] Performing Lab: [facility] [address] [place] [facility] CBC & DIFF MCHC [MASS/VOLU ME] BY AUTOMATED COUNT 32.3 g/dL 32.0 - 37.5 04/20 Specimen Type: BLOOD Comment: Automated Differentia l Performed Ordering Provider: ALENA ROMERO Report Released Date/Time: Apr 20, 2024 03:18 PM Reporting Lab: [facility] [address] Performing Lab: [facility] [address] [place] [facility] CBC & DIFF PLATELETS [#/VOLUME] IN BLOOD BY AUTOMATED COUNT 230 150 - 400 04/20 Specimen Type: BLOOD Comment: Automated Differentia l Performed Ordering Provider: ALENA ROMERO Report Released Date/Time: Apr 20, 2024 03:18 PM Reporting Lab: [facility] [address] Performing Lab: [facility] [address] [place] [facility] CBC & DIFF PLATELET MEAN VOLUME [ENTITIC VOLUME] IN BLOOD BY AUTOMATED COUNT 8.9 fL 9.1 - 13.0 04/20 L Specimen Type: BLOOD Comment: Automated Differentia l Performed Ordering Provider: ALENA ROMERO Report Released Date/Time: Apr 20, 2024 03:18 PM Reporting Lab: [facility] [address] Performing Lab: [facility] [address] [place] [facility] CBC & DIFF NEUTROPHIL S/100 LEUKOCYTES IN BLOOD BY MANUAL COUNT 72.7 40.0 - 80.0 04/20 Specimen Type: BLOOD Comment: Automated Differentia l Performed Ordering Provider: ALENA ROMERO Report Released Date/Time: Apr 20, 2024 03:18 PM Reporting Lab: [facility] [address] Performing Lab: [facility] [address] [place] [facility] CBC & DIFF LYMPHOCYTE S/100 LEUKOCYTES IN BLOOD BY MANUAL COUNT 16.0 15.0 - 45.0 04/20 Specimen Type: BLOOD Comment: Automated Differentia l Performed Ordering Provider: ALNEA ROMERO Report Released Date/Time: Apr 20, 2024 03:18 PM Reporting Lab: [facility] [address] Performing Lab: [facility] [address] [place] [facility] CBC & DIFF MONOCYTES/ 100 LEUKOCYTES IN BLOOD BY AUTOMATED COUNT 8.9 2.0 - 12.0 04/20 Specimen Type: BLOOD Comment: Automated Differentia l Performed Ordering Provider: ALENA ROMERO Report Released Date/Time: Apr 20, 2024 03:18 PM Reporting Lab: [facility] [address] Performing Lab: [facility] [address] [place] [facility] CBC & DIFF EOSINOPHIL S/100 LEUKOCYTES IN BLOOD BY AUTOMATED COUNT 1.6 0.0 - 6.0 04/20 Specimen Type: BLOOD Comment: Automated Differentia l Performed Ordering Provider: ALENA ROMERO Report Released Date/Time: Apr 20, 2024 03:18 PM Reporting Lab: [facility] [address] Performing Lab: [facility] [address] [place] [facility] CBC & DIFF BASOPHILS/ 100 LEUKOCYTES IN BLOOD BY MANUAL COUNT 0.4 0.0 - 2.0 04/20 Specimen Type: BLOOD Comment: Automated Differentia l Performed Ordering Provider: ALENA ROMERO Report Released Date/Time: Apr 20, 2024 03:18 PM Reporting Lab: [facility] [id number] Performing Lab: [facility] [address] [place] [facility] CBC & DIFF ERYTHROCYT E DISTRIBUTI ON WIDTH [RATIO] BY AUTOMATED COUNT 14.6 11.5 - 14.5 04/20 H Specimen Type: BLOOD Comment: Automated Differentia l Performed Ordering Provider: ALENA ROMERO Report Released Date/Time: Apr 20, 2024 03:18 PM Reporting Lab: [facility] [address] Performing Lab: [facility] [address] [place] [facility] CBC & DIFF LYMPHOCYTE S [#/VOLUME] IN BLOOD BY AUTOMATED COUNT 1.5 1.0 - 4.0 04/20 Specimen Type: BLOOD Comment: Automated Differentia l Performed Ordering Provider: ALENA ROEMRO Report Released Date/Time: Apr 20, 2024 03:18 PM Reporting Lab: [facility] [address] Performing Lab: [facility] [address] [place] [facility] CBC & DIFF MONOCYTES [#/VOLUME] IN BLOOD BY AUTOMATED COUNT 0.8 0.1 - 1.0 04/20 Specimen Type: BLOOD Comment: Automated Differentia l Performed Ordering Provider: ALENA ROMERO Report Released Date/Time: Apr 20, 2024 03:18 PM Reporting Lab: [facility] [address] Performing Lab: [facility] [address] [place] [facility] CBC & DIFF NEUTROPHIL S [#/VOLUME] IN BLOOD BY AUTOMATED COUNT 6.8 2.0 - 7.7 04/20 Specimen Type: BLOOD Comment: Automated Differentia l Performed Ordering Provider: ALENA ROMERO Report Released Date/Time: Apr 20, 2024 03:18 PM Reporting Lab: [facility] [address] Performing Lab: [facility] [address] [place] [facility] CBC & DIFF EOSINOPHIL S [#/VOLUME] IN BLOOD BY AUTOMATED COUNT 0.2 0.0 - 0.5 04/20 Specimen Type: BLOOD Comment: Automated Differentia l Performed Ordering Provider: ALENA ROMERO Report Released Date/Time: Apr 20, 2024 03:18 PM Reporting Lab: [facility] [address] Performing Lab: [facility] [address] [place] [facility] CBC & DIFF BASOPHILS [#/VOLUME] IN BLOOD BY AUTOMATED COUNT 0.0 0.0 - 0.2 04/20 Specimen Type: BLOOD Comment: Automated Differentia l Performed Ordering Provider: ALENA ROMERO Report Released Date/Time: Apr 20, 2024 03:18 PM Reporting Lab: [facility] [address] Performing Lab: [facility] [address] [place] [facility] CBC & DIFF IG(META,MY GENNA,PRO) 0.4 04/20 Specimen Type: BLOOD Comment: Automated Differentia l Performed Ordering Provider: ALENA ROMERO Report Released Date/Time: Apr 20, 2024 03:18 PM Reporting Lab: [facility] [address] Performing Lab: [facility] [address] [facility] CBC & DIFF IMMATURE GRANULOCYT ES [PRESENCE] IN BLOOD BY AUTOMATED COUNT 0.0 0.0 - 0.1 04/20 Specimen Type: BLOOD Comment: Automated Differentia l Performed Ordering Provider: ALENA ROMERO Report Released Date/Time: Apr 20, 2024 03:18 PM Reporting Lab: [facility] [address] Performing Lab: [facility] [address] [facility] HEMOGLOB IN A1C HEMOGLOBIN A1C/HEMOGL OBIN.TOTAL IN BLOOD 5.5 4.0 - 6.0 04/20 Specimen Type: BLOOD Comment: Values obtained from A1C measurement s can vary. For typical A1C assays, a reported value of 7.0 could actually be between 6.7 and 7.3 if measured by a reference method. A reported value of 9.0 could actually be between 8.7 and 9.3. Ref: http://www. ngsp.org/[place] Pdata.asp Ordering Provider: ALENA ROMERO Report Released Date/Time: Apr 20, 2024 03:18 PM Reporting Lab: [facility] [address] Performing Lab: [facility] [address] [facility] Vital Signs Combined list of inpatient and outpatient Vital Signs from Department of Defense and Veterans Affairs, ranging from 12 months to all on record, depending upon the facility. Vital Sign Value Date Comments Source SYSTOLIC BLOOD PRESSURE 137 04/20/2024 14:13:41 [facility] DIASTOLIC BLOOD PRESSURE 72 04/20/2024 14:13:41 [facility] PULSE OXIMETRY 92 04/20/2024 14:13:41 [place] [facility] WEIGHT 244 04/20/2024 14:13:41 [facility] BMI 33kg/m2 04/20/2024 14:13:41 [facility] PAIN 0 04/20/2024 14:13:41 [facility] HEIGHT 72 04/20/2024 14:13:41 [facility] TEMPERATURE 98.3 04/20/2024 14:13:41 [place] [facility] PULSE 112 04/20/2024 14:13:41 [facility] RESPIRATION 20 04/20/2024 14:13:41 [facility] Encounters Combined list of: 1) Encounters from Department of Veterans Affairs facilities going back up to thelast 18 months. 2) Encounters from the Department of [facility] facilities going back up to 280 months. Location Location Details Encounter Type Encounter Number Reason For Visit Attending Provider ADM Date DC Date Status Disposition Source [place] [facility] Outpatient Encounter [id number] 11/19 [facility] [place] [facility] Outpatient Encounter [id number] 03/04 [facility] [place] [facility] Outpatient Encounter [id number] 03/21 [facility] [place] [facility] Outpatient Encounter [id number] 04/19 [facility] [place] [facility] Outpatient Encounter [id number] 02/24 [facility] [place] [facility] Outpatient Encounter [id number] 03/27 [facility] [place] [facility] OFFICE O/P [place] 60 MIN [id number] Diagnos is: ICD-10- CM 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
KARLOS ROMERO UREEN B 04/20 [facility] Outpatient Encounter [id number] 04/20 [facility] QNHP OL DIG ASSMT&MGMT 11-20 [id number] Diagnos is: ICD-10- CM J45.998 Other asthma< br/> KARLOS GUTIÉRREZ RTY R 04/21 [facility] MTMS BY PHARM ADDL 15 MIN [id number] Diagnos is: ICD-10- CM Z79.01 long-term (curren t) use of anticoa gulants
TAJ SAWYER 05/07 [facility] QNHP OL DIG ASSMT&MGMT 5-10 [id number] Diagnos is: ICD-10- CM Z79.01 terminal carman (curren t) use of anticoa gulants
TAJ SAWYER 05/18 [facility] Outpatient Encounter [id number] 05/19 [facility] Social History Combined list of available smoking, tobacco, and other social history from Department of Defense and Veterans Affairs facilities. Social History Type Response Date Comment Sourc e Tobacco smoking status SDIS LA-TOBACCO NEVER USED CIGARETTES 04/20/2024 [facility] History of tobacco use LA-TOBACCO NEVER USED OTHER TYPE 04/20/2024 [facility] Plan of Care List of future care activities from Department of Veterans Affairs facilities. Additional future care activities may be listed in the Assessment and Plan section. Date/Time Care Activity Care Activity Detail Facili ty 05/21/2024 AMBULATORY - NONE AMB[facility]ATORY - NONE [facility] 05/25/2024 AMBULATORY - MEDICINE AMBULATORY - MEDICI NE [facility] 05/21/2024 Laboratory - Chemistry Order APIXABAN ZEESHAN SMA SP ONCE [facility]
--- OUTSIDE RECORDS SUMMARY | 2024-05-20 13:45 | XMS_ITS | Encounter Summary ---
Author Name [facility] [place] [facility] [place] Address [address] [place] [id number] Care Team Providers Care Court Commissioner Name Role Phone ERIC ROMERO Primary Care [...] to Policy [place] MEDICA (WNR) MEDICARE [facility]VANTAGE [facility]) Jun 03, 2019 [id number] MARIA ELENAKatherineROB PATIENT [facility]ICA [facility] (WNR) MEDICARE [facility]ANTAGE [facility] ([facility]) Jun 03, 2017 [id number] [phone] ADRIANBRISSAKatherineROB WEINSTEIN PATIENT [facility]ICA [facility] (WNR) MEDICARE [facility]VANTAGE [facility] (WNR) Jun 03, 2017 [id number] [phone] ROB CASTREJON PATIENT MEDICARE PART D (WN) MEDICARE (M) PART D Apr 03, 2009 PART D [id number] ROB CASTREJON PATIENT [facility] (WN) [facility] MEDIC ARE [id number] HUGH Peacock Apr 03, 2009 [id number] ROB CASTREJON PATIENT Selected Encounter This section includes the information on record at [place] for the Encounter. Date/Time Encounter Type Encounter Description Reason Pro vider Source Mar 27, 2024 12:00 AM Outpatient Encounter EVENT (HISTORICAL) IHE Encounter Template Text not used by [place] Plan of Treatment: Future Appointments (+ 6 months) and Future Tests (+/- 45 days) The Plan of Treatment section includes future care activities for the patient from all [place] treatmentfacilities. This section includes future appointments and future orders which are active, pending or scheduled. Future Appointments This section includes appointments that were scheduled to occur 6 months from the date of the Encounter, up to a maximum of 20 appointments. The data comes from all [place] treatment facilities. Appointment Date/Time Appointment Type Appointme nt Facility Name Apr 20, 2024 02:00 PM AMBULATORY - MEDICINE [facility] Apr 20, 2024 03:30 PM AMBULATORY - NONE [facility] May 21, 2024 09:00 AM AMBULATORY NONE [facility] May 25, 2024 11:20 AM AMBULATORY - MEDICINE [facility] Lab Results: +/- 30 days of the encounter This section includes the Chemistry and Hematology Lab Results on record with [place] for the patient. Radiology Reports and Pathology Reports are provided separately, in subsequent sections. Lab Results This section contains the Chemistry/Hematology Results that were resulted 30 days before or 30 daysafter the date of the Encounter. Date/Time Source Result Type Result - Unit Interpretation Reference Range Comment Apr 20, 2024 03:24 PM [facility] LUPUS INHIBITOR PANEL Specimen Type: PLASMA No comment entered. Ordering Provider: ERIC ROMERO Report Released Date/Time: Apr 20, 2024 03:18 PM Reporting Lab: [facility] [address] Performing Lab: [facility] [address] .dRVVT NORM. RATIO 0.96 {ratio} <1.15 .SILICA CLOT RATIO 1.12 {ratio} <1.18 LUPUS INHIBIT INTERP NEGATIVE -negative Apr 20, 2024 03:24 PM [facility] METHYLMALONIC ACID Specimen Type: SERUM No comment entered. Ordering Provider: ERIC ROMERO Report Released Date/Time: Apr 20, 2024 03:18 PM Reporting Lab: [facility] [address] Performing Lab: [facility] [address] METHYLMALONIC ACID 234 nmol/L 0-400 Apr 20, 2024 03:24 PM [facility] PROTEIN C (FUNC) Specimen Type: PLASMA No comment entered. Ordering Provider: ERIC ROMERO Report Released Date/Time: Apr 20, 2024 03:18 PM Reporting Lab: [facility] [address] Performing Lab: [facility] [address] PROTEIN C (FUNC) 94 70-140 Apr 20, 2024 03:24 PM [facility] PROTEIN S-FREE Specimen Type: PLASMA No comment entered. Ordering Provider: ERIC ROMERO Report Released Date/Time: Apr 20, 2024 03:18 PM Reporting Lab: [facility] [address] Performing Lab: [facility] [address] PROTEIN S-FREE 110 74-146 Apr 20, 2024 03:24 PM [facility] ANTI-CARDIOLIPIN WALKER PANEL Specimen Type: SERUM Comment: [...] .AGNES IGM:immunologica l classification criteria for systemic .GANES IGM:lupus erythematosus (SLE) include testing for .AGNES IGM:isotype IgA, which has yet to be incorporated into .AGNES IGM:APS criteria. Low level antiphospholipid antibodies .AGNES IGM:may sometimes be detected in the setting of infection, .AGNES IGM:drug therapy or aging. .AGNES IGM:For additional information, please refer to .AGNES IGM:http://educa [email or web address].com/faq/FA Q109 .AGNES IGM:(This link is being provided for informational/ .AGNES IGM:educational purposes only.) .AGNES IGM:Test [facility], .AGNES IGM:[facility], .AGNES IGM:[address] [place], [place] .AGNES IGM:Lito Kruse M.D., Ph.D., Director of Laboratories .AGNES IGM: , CLIA [id number] Ordering Provider: ERIC ROMERO Report Released Date/Time: Apr 20, 2024 03:18 PM Reporting Lab: [facility] [address] Performing Lab: [facility] [address] [facility] CARDIOLIPIN,IG G WALKER 2.5 SEE BELOW CARDIOLIPIN,IG M WALKER 11.3 SEE BELOW Apr 20, 2024 03:24 PM [facility] B 12 Specimen Type: SERUM No comment entered. Ordering Provider: ERIC ROMERO Report Released Date/Time: Apr 20, 2024 03:18 PM Reporting Lab: [facility] [address] Performing Lab: [facility] [address] B 12 336 pg/mL 213-816 Apr 20, 2024 03:24 PM [facility] FOLATE Specimen Type: SERUM No comment entered. Ordering Provider: ERIC ROMERO Report Released Date/Time: Apr 20, 2024 03:18 PM Reporting Lab: [facility] [address] Performing Lab: [facility] [address] FOLATE 17.5 ng/mL >7.0 Apr 20, 2024 03:24 PM [facility] BASIC METABOLIC PANEL+MG Specimen Type: PLASMA No comment entered. Ordering Provider: ERIC ROMERO Report Released Date/Time: Apr 20, 2024 03:18 PM Reporting Lab: [facility] [address] Performing Lab: [facility] [address] CREATININE 1.2 mg/dL 0.7-1.2 UREA NITROGEN 18 mg/dL 8-26 GLUCOSE 97 mg/dL 70-100 SODIUM 142 mmol/L 136-145 POTASSIUM 4.1 mmol/L 3.5-5.1 CHLORIDE 111 mmol/L H 98-107 CO2 22 mmol/L 22-29 CALCIUM 9.4 mg/dL 8.4-10.2 MAGNESIUM 1.9 mg/dL 1.6-2.6 ANION GAP 9 mmol/L 5-15 .CREAT EGFR(CKD-EPI) 62 >60 Apr 20, 2024 03:24 PM [facility] CBC & DIFF Specimen Type: BLOOD Comment: Automated Differential Performed Ordering Provider: ERIC ROMERO Report Released Date/Time: Apr 20, 2024 03:18 PM Reporting Lab: [facility] [address] Performing Lab: [facility] [address] WBC 9.3 4.0-11.0 RBC 4.71 4.60-6.20 HGB [...] 0.0 0.0-0.1 Apr 20, 2024 03:24 PM [facility] HEMOGLOBIN A1C Specimen Type: BLOOD Comment: Values [...] Apr 20, 2024 03:18 PM Reporting Lab: [facility] [address] Performing Lab: [facility] [address] HEMOGLOBIN A1C 5.5 4.0-6.0 Apr 20, 2024 03:24 PM [facility] IRON GROUP Specimen Type: SERUM No comment entered. Ordering Provider: ERIC ROMERO Report Released Date/Time: Apr 20, 2024 03:18 PM Reporting Lab: [facility] [address] Performing Lab: [facility] [address] IRON 45 ug/dL L 65-175 TIBC,CALCULATE D 313 ug/dL 250-425 FERRITIN 115.0 ng/mL 21.8-274.7 IRON SATURATION 14 L 20-50 TRANSFERRIN 250 mg/dL 163-382 Apr 20, 2024 03:24 PM [facility] PT/INR(ANTICOAG) Specimen Type: PLASMA No comment entered. Ordering Provider: ERIC ROMERO Report Released Date/Time: Apr 20, 2024 03:18 PM Reporting Lab: [facility] [address] Performing Lab: [facility] [address] .INR 1.2 H 0.8-1.1 .PT 13.5 s H 9.4-12.5 Apr 20, 2024 03:24 PM [facility] LIVER FUNCTION TESTS Specimen Type: PLASMA No comment entered. Ordering Provider: ERIC ROMERO Report Released Date/Time: Apr 20, 2024 03:18 PM Reporting Lab: [facility] [address] Performing Lab: [facility] [address] BILIRUBIN, TOTAL 0.5 mg/dL 0.2-1.2 ALKALINE PHOSPHATASE 67 U/L 40-150 ALT/SGPT 27 U/L <44 AST/SGOT 28 U/L 11-34 GAMMA GTP 35 U/L <54 Immunizations: All administered on the encounter date This section contains immunizations associated to the Encounter. Immunization Series Date Issued Reaction Comments PNEUMOCOCCAL CONJUGATE PCV20 , POLYSACCHARIDE [id number] CONJUGATE, ADJUVANT, PF Mar 27, 2024
--- OUTSIDE RECORDS SUMMARY | 2024-05-20 13:46 | XMS_ITS | Encounter Summary ---
Author Name [facility] [place] [facility] [place] Address [address] [place] [address] Care Team Providers Care Sales Representative Uniforms Name Role Phone ERIC ROMERO Primary Care [...] to Policy [place] [employer] (WNR) MEDICARE ADVANTAGE [facility] (WNR) Jun 03, 2019 [id number] [phone] ADRIANBRISSAKatherineROB JS PATIENT MEDICA [facility] (WNR) MEDICARE ADVANTAGE [facility] (WNR) Jun 03, 2017 [id number] [phone] ADRIANBRISSAROB Murphy PATIENT MEDICA [facility] (WNR) MEDICARE ADVANTAGE [facility] (WNR) Jun 03, 2017 [id number] ADRIANBRISSAROB Murphy PATIENT MEDICARE PART D (WNR) MEDICARE (M) PART D Apr 03, 2009 PART D [id number] ADRIANBRISSAKatherineROBLES PATIENT [facility] (WNR) [facility] RICKY Peacock Apr 03, 2009 [id number] ROB CASTREJON PATIENT Selected Encounter This section includes the information on record at [place] for the Encounter. 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 This section includes future appointments and future [...] 21, 2024 09:00 AM [facility] May 25, 2024 11:20 AM AMBULATORY - MEDICINE [facility] Active, Pending, and Scheduled Orders This section includes a listing of several types of active, pending, and scheduled orders, including clinic medications orders, diagnostic test orders, procedure orders and consult orders; where the start date of the order is 45 days before the date of the Encounter or 45 days after the date of theEncounter. The data comes from all [place] treatment facilities. Test Date/Time Test Type Test Details Facility Name May 21, 2024 12:00 AM Laboratory - Chemi stry Order APIXABAN PLASMA SP ONCE [facility] Lab Results: +/- 30 days of [...] Range Comment Apr 20, 2024 03:24 PM [facility] LUPUS INHIBITOR PANEL Specimen Type: PLASMA No comment entered. Ordering Provider: ERIC ROMERO Report Released Date/Time: Apr 20, 2024 03:18 PM Reporting Lab: [facility] [address] Performing Lab: [facility] [address] .dRVVT NORM. RATIO 0.96 {ratio} <1.15 .SILICA CLOT RATIO 1.12 {ratio} <1.18 LUPUS INHIBIT INTERP NEGATIVE -negative Apr 20, 2024 03:24 PM [facility] METHYLMALONIC ACID Specimen Type: SERUM No comment entered. Ordering Provider: ERIC ROMERO Report Released Date/Time: Apr 20, 2024 03:18 PM Reporting Lab: [facility] [address] Performing Lab: [place] [address] METHYLMALONIC ACID 234 nmol/L 0-400 Apr 20, 2024 03:24 PM [facility] PROTEIN C (FUNC) Specimen Type: PLASMA No comment entered. Ordering Provider: ERIC ROMERO Report Released Date/Time: Apr 20, 2024 03:18 PM Reporting Lab: [facility] [address] Performing Lab: [facility] [address] PROTEIN C (FUNC) 94 70-140 Apr 20, 2024 03:24 PM [facility] PROTEIN S-FREE Specimen Type: PLASMA No comment entered. Ordering Provider: ERIC ROMERO Report Released Date/Time: Apr 20, 2024 03:18 PM Reporting Lab: [facility] [address] Performing Lab: [facility] [address] PROTEIN S-FREE 110 74-146 Apr 20, 2024 03:24 PM [facility] ANTI-CARDIOLIPIN WALKER PANEL Specimen Type: SERUM [...] additional information, please refer to .AGNES IGM:[email or web address] [email or web address]/faq/FA [email or web address] .AGNES IGM:(This link is being provided for informational/ .AGNES IGM:educational purposes only.) .AGNES IGM:Test Performed by [place], .AGNES IGM:[employer] [place], .AGNSE IGM:[address] [place], [place] .AGNES IGM:Lito Kruse M.D., Ph.D., Director of Laboratories .AGNES IGM: , CLIA [id number] Ordering Provider: ERIC ROMERO Report Released Date/Time: Apr 20, 2024 03:18 PM Reporting Lab: [facility] [address] Performing Lab: [facility] [address] [facility] CARDIOLIPIN,IG G WALKER 2.5 SEE BELOW CARDIOLIPIN,IG M WALKER 11.3 SEE BELOW Apr 20, 2024 03:24 PM [facility] B 12 Specimen Type: SERUM No comment entered. Ordering Provider: ERIC ROMERO Report Released Date/Time: Apr 20, 2024 03:18 PM Reporting Lab: [facility] [address] Performing Lab: [facility] [address] B 12 336 pg/mL 213-816 Apr 20, 2024 03:24 PM [facility] FOLATE Specimen Type: SERUM No comment entered. Ordering Provider: ERIC ROMERO Report Released Date/Time: Apr 20, 2024 03:18 PM Reporting Lab: [facility] [address] Performing Lab: [facility] [address] FOLATE 17.5 ng/mL >7.0 Apr 20, 2024 03:24 PM [facility] BASIC METABOLIC PANEL+MG Specimen Type: PLASMA No comment entered. Ordering Provider: ERIC ROMERO Report Released Date/Time: Apr 20, 2024 03:18 PM Reporting Lab: [facility] [address] Performing Lab: [facility] [address] CREATININE 1.2 mg/dL 0.7-1.2 UREA NITROGEN 18 mg/dL 8-26 GLUCOSE 97 mg/dL 70-100 SODIUM 142 mmol/L 136-145 POTASSIUM 4.1 mmol/L 3.5-5.1 CHLORIDE 111 mmol/L H 98-107 CO2 22 mmol/L 22-29 CALCIUM 9.4 mg/dL 8.4-10.2 MAGNESIUM 1.9 mg/dL 1.6-2.6 ANION GAP 9 mmol/L 5-15 .CREAT EGFR(CKD-EPI) 62 >60 Apr 20, 2024 03:24 PM [facility] CBC & DIFF Specimen Type: BLOOD Comment: Automated Differential Performed Ordering Provider: ERIC ROMERO Report Released Date/Time: Apr 20, 2024 03:18 PM Reporting Lab: [facility] [address] Performing Lab: [facility] [address] WBC 9.3 4.0-11.0 RBC 4.71 4.60-6.20 HGB [...] 0.0 0.0-0.1 Apr 20, 2024 03:24 PM [facility] HEMOGLOBIN A1C Specimen Type: BLOOD Comment: [...] Apr 20, 2024 03:18 PM Reporting Lab: [facility] [address] Performing Lab: [facility] [address] HEMOGLOBIN A1C 5.5 4.0-6.0 Apr 20, 2024 03:24 PM [facility] IRON GROUP Specimen Type: SERUM No comment entered. Ordering Provider: ERIC ROMERO Report Released Date/Time: Apr 20, 2024 03:18 PM Reporting Lab: [facility] [address] Performing Lab: [facility] [address] IRON 45 ug/dL L 65-175 TIBC,CALCULATE D 313 ug/dL 250-425 FERRITIN 115.0 ng/mL 21.8-274.7 IRON SATURATION 14 L 20-50 TRANSFERRIN 250 mg/dL 163-382 Apr 20, 2024 03:24 PM [facility] PT/INR(ANTICOAG) Specimen Type: PLASMA No comment entered. Ordering Provider: REIC ROMERO Report Released Date/Time: Apr 20, 2024 03:18 PM Reporting Lab: [facility] [address] Performing Lab: [facility] [address] .INR 1.2 H 0.8-1.1 .PT 13.5 s H 9.4-12.5 Apr 20, 2024 03:24 PM [facility] LIVER FUNCTION TESTS Specimen Type: PLASMA No comment entered. Ordering Provider: ERIC ROMERO Report Released Date/Time: Apr 20, 2024 03:18 PM Reporting Lab: [facility] [address] Performing Lab: [facility] [address] BILIRUBIN, TOTAL 0.5 mg/dL 0.2-1.2 ALKALINE PHOSPHATASE 67 U/L 40-150 ALT/SGPT 27 U/L <44 AST/SGOT 28 U/L 11-34 GAMMA GTP 35 U/L <54 Social History: Smoking Status (Most current) and Tobacco Use (All prior to encounter date) This section includes the most current, and the historical, smoking and tobacco- related health factors from the [place] facility where the Encounter took place. Current Smoking Status This section includes the most current smoking, or tobacco-related health factor, from the [place] facility where the Encounter took place. Date/Time Current Smoking Status Comment Manohar sotomayor Apr 20, 2024 02:00 PM [place]-TOBACCO NEVER USED CIGARETTES [facility] Tobacco Use History This section includes a history of the smoking, or tobacco-related health factors, that were collected on or before the date of the Encounter. The data comes from the [place] facility where the Encounter took place. Date/Time Smoking Status/Tobacco Use Comment F acility Apr 20, 2024 02:00 PM [place]-TOBACCO NEVER USED OTHER TYPE [facility] Encounter Notes: All associated encounter notes This section contains the clinical notes associated to the Encounter. Date/Time Encounter Note(s) Provider Source May 18, 2024 08:09 AM MEDICATION MGT CON SULT: LOCAL TITLE: ANTICOAGULATION CLINIC CONSULT STANDARD TITLE: MEDICATION MGT CONSULT DATE OF NOTE: MAY 18, 2024@08:09 ENTRY DATE: MAY 18, 2024@08:10:02 AUTHOR: BREE SAWYER EXP COSIGNER: URGENCY: STATUS: COMPLETED See 05/07/2024 for intake note. /tao/ TAJ SAWYER Pharmacist Signed: 05/18/2024 08:10 BREE SAWYER [facility]
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
--- OUTSIDE RECORDS SUMMARY | 2024-05-20 13:46 | XMS_ITS | Encounter Summary ---
Author Name Department of Vetera Affairs [place] Organization Department of [place] [place] Address [address] [place] [address] Care Team Providers Care Vitreo Retinal Surgeon Name Role Phone ERIC ROMERO Primary Care [...] to Policy [place] MEDICA (WNR) MEDICARE ADVANTAGE [facility] ([facility]) Jun 03, 2019 [id number] ROB CASTREJON PATIENT MEDICA [facility] ([facility]) MEDICARE [facility] ([facility]) Jun 03, 2017 [id number] [phone] ROB CASTREJON PATIENT MEDICA [facility] ([facility]) MEDICARE ADVANTAGE [facility] ([facility]) Jun 03, 2017 [id number] ROB CASTREJON PATIENT MEDICARE PART D ([facility]) MEDICARE (M) PART D Apr 03, 2009 PART D [id number] ROB CASTREJON PATIENT [facility] ([facility]) FOR[facility]LY [facility] ORGANIZ MEDIC ARE DHRUVA HUGH T Apr 03, 2009 [id number] [phone] ROB CASTREJON PATIENT Selected Encounter This section includes the information on record at DC for the Encounter. Date/Time Encounter Type Encounter Description Reason Pro vider Source May 19, 2024 09:44 AM Outpatient Encounter TELEPHONE TRIAGE IHE Encounter Template Text not used by DC Plan of Treatment: Future Appointments (+ 6 months) and Future Tests (+/- 45 days) The Plan of Treatment section includes future care activities for the patient from all DC treatmentfacilities. This section includes future appointments and future orders which are active, pending or scheduled. Future Appointments This section includes appointments that were scheduled to occur 6 months from the date of the Encounter, up to a maximum of 20 appointments. The data comes from all [place] treatment facilities. Appointment Date/Time Appointment Type Appointme nt Facility Name May 21, 2024 09:00 AM AMBULATORY - NONE [facility] May 25, 2024 11:20 AM AMBULATORY - MEDICINE [facility] Active, Pending, and Scheduled Orders This section includes a listing of several types of active, pending, and scheduled orders, including clinic medications orders, diagnostic test orders, procedure orders and consult orders; where the start date of the order is 45 days before the date of the Encounter or 45 days after the date of theEncounter. The data comes from all DC treatment facilities. Test Date/Time Test Type Test Details Facility Name May 21, 2024 12:00 AM Laboratory - Chemi stry Order APIXABAN PLASMA SP ONCE [facility] Lab Results: +/- 30 days of the encounter This section includes the Chemistry and Hematology Lab Results on record with DC for the patient. Radiology Reports and Pathology Reports are provided separately, in subsequent sections. Lab Results This section contains the Chemistry/Hematology Results that were resulted 30 days before or 30 daysafter the date of the Encounter. Date/Time Source Result Type Result - Unit Interpretation Reference Range Comment Apr 20, 2024 03:24 PM [facility] LUPUS INHIBITOR PANEL Specimen Type: PLASMA No comment entered. Ordering Provider: ERIC ROMERO Report Released Date/Time: Apr 20, 2024 03:18 PM Reporting Lab: [facility] [phone] Performing Lab: [facility] [address] .dRVVT NORM. RATIO 0.96 {ratio} <1.15 .SILICA CLOT RATIO 1.12 {ratio} <1.18 LUPUS INHIBIT INTERP NEGATIVE -negative Apr 20, 2024 03:24 PM [facility] METHYLMALONIC ACID Specimen Type: SERUM No comment entered. Ordering Provider: ERIC ROMERO Report Released Date/Time: Apr 20, 2024 03:18 PM Reporting Lab: [facility] [address] Performing Lab: [facility] [address] METHYLMALONIC ACID 234 nmol/L 0-400 Apr 20, 2024 03:24 PM [facility] PROTEIN C (FUNC) Specimen Type: PLASMA No comment entered. Ordering Provider: ERIC ROMERO Report Released Date/Time: Apr 20, 2024 03:18 PM Reporting Lab: [facility] [address] Performing Lab: [facility] [address] PROTEIN C (FUNC) 94 70-140 Apr 20, 2024 03:24 PM [facility] PROTEIN S-FREE Specimen Type: PLASMA No comment entered. Ordering Provider: ERIC ROMERO Report Released Date/Time: Apr 20, 2024 03:18 PM Reporting Lab: [facility] [address] Performing Lab: [facility] [address] PROTEIN S-FREE 110 74-146 Apr 20, 2024 03:24 PM [facility] ANTI-CARDIOLIPIN WALKER PANEL Specimen Type: [...] additional information, please refer to .AGNES IGM:http://educa tion.Chalkable.com/faq/FA Q109 .AGNES IGM:(This link is being provided for informational/ .AGNES IGM:educational purposes only.) .AGNES IGM:Test Performed by [facility], .AGNES IGM:[facility] [facility], .AGNES IGM:[address] [place], [place] .AGNES IGM:Lito Kruse M.D., Ph.D., Director of Laboratories .AGNES IGM: , CLIA [id number] Ordering Provider: ERIC ROMERO Report Released Date/Time: Apr 20, 2024 03:18 PM Reporting Lab: [facility] [phone] Performing Lab: [facility] [address] [facility] CARDIOLIPIN,IG G WALKER 2.5 SEE BELOW CARDIOLIPIN,IG M WALKER 11.3 SEE BELOW Apr 20, 2024 03:24 PM [facility] 12 Specimen Type: SERUM No comment entered. Ordering Provider: ERIC ROMERO Report Released Date/Time: Apr 20, 2024 03:18 PM Reporting Lab: [facility] [address] Performing Lab: [facility] [address] B 12 336 pg/mL 213-816 Apr 20, 2024 03:24 PM [facility] FOLATE Specimen Type: SERUM No comment entered. Ordering Provider: ERIC ROMERO Report Released Date/Time: Apr 20, 2024 03:18 PM Reporting Lab: [facility] [address] Performing Lab: [facility] [address] FOLATE 17.5 ng/mL >7.0 Apr 20, 2024 03:24 PM [facility] BASIC METABOLIC PANEL+MG Specimen Type: PLASMA No comment entered. Ordering Provider: ERIC ROMERO Report Released Date/Time: Apr 20, 2024 03:18 PM Reporting Lab: [facility] [address] Performing Lab: [facility] [address] CREATININE 1.2 mg/dL 0.7-1.2 UREA NITROGEN 18 mg/dL 8-26 GLUCOSE 97 mg/dL 70-100 SODIUM 142 mmol/L 136-145 POTASSIUM 4.1 mmol/L 3.5-5.1 CHLORIDE 111 mmol/L H 98-107 CO2 22 mmol/L 22-29 CALCIUM 9.4 mg/dL 8.4-10.2 MAGNESIUM 1.9 mg/dL 1.6-2.6 ANION GAP 9 mmol/L 5-15 .CREAT EGFR(CKD-EPI) 62 >60 Apr 20, 2024 03:24 PM [facility] CBC & DIFF Specimen Type: BLOOD Comment: Automated Differential Performed Ordering Provider: ERIC ROMERO Report Released Date/Time: Apr 20, 2024 03:18 PM Reporting Lab: [facility] [address] Performing Lab: [facility] [address] WBC 9.3 4.0-11.0 RBC 4.71 4.60-6.20 HGB [...] 0.0 0.0-0.1 Apr 20, 2024 03:24 PM [facility] HEMOGLOBIN A1C Specimen Type: BLOOD [...] 20, 2024 03:18 PM Reporting Lab: [facility] [address] Performing Lab: [facility] [address] HEMOGLOBIN A1C 5.5 4.0-6.0 Apr 20, 2024 03:24 PM [facility] IRON GROUP Specimen Type: SERUM No comment entered. Ordering Provider: ERIC ROMERO Report Released Date/Time: Apr 20, 2024 03:18 PM Reporting Lab: [facility] [address] Performing Lab: [facility] [address] IRON 45 ug/dL L 65-175 TIBC,CALCULATE D 313 ug/dL 250-425 FERRITIN 115.0 ng/mL 21.8-274.7 IRON SATURATION 14 L 20-50 TRANSFERRIN 250 mg/dL 163-382 Apr 20, 2024 03:24 PM [facility] PT/INR(ANTICOAG) Specimen Type: PLASMA No comment entered. Ordering Provider: ERIC ROMERO Report Released Date/Time: Apr 20, 2024 03:18 PM Reporting Lab: [facility] [address] Performing Lab: [facility] [address] .INR 1.2 H 0.8-1.1 .PT 13.5 s H 9.4-12.5 Apr 20, 2024 03:24 PM [facility] LIVER FUNCTION TESTS Specimen Type: PLASMA No comment entered. Ordering Provider: ERIC ROMERO Report Released Date/Time: Apr 20, 2024 03:18 PM Reporting Lab: [facility] [address] Performing Lab: [facility] [address] BILIRUBIN, TOTAL 0.5 mg/dL 0.2-1.2 ALKALINE PHOSPHATASE 67 U/L 40-150 ALT/SGPT 27 U/L <44 AST/SGOT 28 U/L 11-34 GAMMA GTP 35 U/L <54 Social History: Smoking Status (Most current) and Tobacco Use (All prior to encounter date) This section includes the most current, and the historical, smoking and tobacco- related health factors from the [facility] where the Encounter took place. Current Smoking Status This section includes the most current smoking, or tobacco-related health factor, from the [place] facility where the Encounter took place. Date/Time Current Smoking Status Comment Manohar sotomayor Apr 20, 2024 02:00 PM DC-TOBACCO NEVER USED CIGARETTES [facility] Tobacco Use History This section includes a history of the smoking, or tobacco-related health factors, that were collected on or before the date of the Encounter. The data comes from the [place] facility where the Encounter took place. Date/Time Smoking Status/Tobacco Use Comment Genny davis Apr 20, 2024 02:00 PM [place]-TOBACCO NEVER USED OTHER TYPE [facility] Encounter Notes: All associated encounter notes This section contains the clinical notes associated to the Encounter. Date/Time Encounter Note(s) Provider Source May 19, 2024 12:10 PM ADDENDUM: LOCAL TITLE: Addendum STANDARD TITLE: ADDENDUM DATE OF NOTE: MAY 19, 2024@12:10:41 ENTRY DATE: MAY 19, 2024@12:10:43 AUTHOR: HARMONY BOO COSIGNER: URGENCY: STATUS: COMPLETED Forwarding to pharmacist for review. /es/ Harmony Boo RN Registered Nurse Signed: 05/19/2024 12:10 Receipt Acknowledged By: 05/19/2024 13:44 /es/ TAJ SAWYER Pharmacist --- Original Document --- 05/19/24 CCC: SCHEDULING ADMINISTRATION: Primary Care Call Center Primary Care Provider Call. Other: CHANGING ELIQUIS This note was created by a 3 [facility] Call Center AMSA/MSA. Please do not alert this telegraphic typewriter installer by adding as a signer for future communications. Alerts are not monitored by this user, please reach out to [facility] Leadership instead if indicated. Phone number verified as correct. [phone] The is calling his [place] primary care provider in regards to changing his current 5MG MG tablet of Eliquis to a 2 1/2 MG tablet. He does need a medication renewal as well. The is requesting a call back today, 05/19/24 at the above listed number. /tao/ YOVANY PALOMARES VISN23 [facility] Signed: 05/19/2024 09:54 Receipt Acknowledged By: 05/19/2024 12:10 /tao/ Harmony Boo RN Registered Nurse HARMONY BOO [facility] May 19, 2024 09:44 AM ADMINISTRATIVE NOT E: LOCAL TITLE: CCC: SCHEDULING ADMINISTRATION STANDARD TITLE: ADMINISTRATIVE NOTE DATE OF NOTE: MAY 19, 2024@09:44 ENTRY DATE: MAY 19, 2024@09:44:58 AUTHOR: MARC BAUGH COSIGNER: URGENCY: STATUS: COMPLETED CCC: SCHEDULING ADMINISTRATION Has ADDENDA Primary Care Call Center Primary Care Provider Call. Other: CHANGING ELIQUIS This note was created by a 3 [facility] Call Center AMSA/MSA. Please do not alert this telegraphic typewriter installer by adding as a signer for future communications. Alerts are not monitored by this user, please reach out to [facility] Leadership instead if indicated. Phone number verified as correct. [phone] The is calling his [place] primary care provider in regards to changing his current 5MG MG tablet of Eliquis to a 2 1/2 MG tablet. He does need a medication renewal as well. The is requesting a call back today, 05/19/24 at the above listed number. /tao/ YOVANY PALOMARES VISN23 [facility] MSA Signed: 05/19/2024 09:54 Receipt Acknowledged By: 05/19/2024 12:10 /es/ Harmony Boo RN Registered Nurse 05/19/2024 ADDENDUM STATUS: COMPLETED Forwarding to pharmacist for review. /es/ Harmony Boo RN Registered Nurse Signed: 05/19/2024 12:10 Receipt Acknowledged By: 05/19/2024 13:44 /es/ TAJ SAWYER Pharmacist 05/19/2024 ADDENDUM STATUS: COMPLETED see addendum to 05/07/24 note. /es/ ENID STEWART PHARMACIST Signed: 05/19/2024 15:43 YOVANY BAUGH [facility]
--- OUTSIDE RECORDS SUMMARY | 2024-06-01 08:59 | XMS_ITS | Encounter Summary ---
Author Name Department of Vetera ns Affairs [place] Organization [facility] of [place] Address [address] [place] [address] Care Team Providers Care Dispatcher Tugboat Name Role Phone ERIC ROMERO Primary Care [...] to Policy [place] MEDICA (WNR) MEDICARE ADVANTAGE [facility] ([facility]) Jun 03, 2019 [id number] [phone] ROB CASTREJON PATIENT MEDICA [facility] ([facility]) MEDICARE ADVANTAGE [facility] ([facility]) Jun 03, 2017 [id number] [phone] ROB CASTREJON PATIENT MEDICA [facility] ([place]) MEDICARE ADVANTAGE [facility] ([facility]) Jun 03, 2017 [id number] ROB CASTREJON PATIENT MEDICARE PART D ([facility]) MEDICARE (M) PART D Apr 03, 2009 PART D [id number] ROB CASTREJON PATIENT [facility] ([facility]) [facility] ORGANIZ MEDIC ARE REPLA HUGH T Apr 03, 2009 [id number] ROB CASTREJON PATIENT Selected Encounter This section includes the information on record at [place] for the Encounter. Date/Time Encounter Type Encounter Description Reason Provider Source May 25, 2024 11:20 AM EVALUATION OF WHEEZING PULMONARY FUNCTION ICD-10-CM J45.998 Other asthma KIM BRICE IHE Encounter Template Text not used by [place] Assessments - Encounter Diagnoses This section includes the primary and secondary diagnoses documented for the Encounter. Date/Time Primary/Secondary Diagnosis Diagnosis Name Provider Source May 25, 2024 11:32 AM PRIMARY Other asthma [facility] Lab Results: +/- 30 days of the encounter This section includes the Chemistry and Hematology Lab Results on record with [place] for the patient. Radiology Reports and Pathology Reports are provided separately, in subsequent sections. Lab Results This section contains the Chemistry/Hematology Results that were resulted 30 days before or 30 daysafter the date of the Encounter. Date/Time Source Result Type Result - Unit Interpretation Reference Range Comment May 25, 2024 10:35 AM [facility] APIXABAN Specimen Type: PLASMA No comment entered. Ordering Provider: CHIO SAWYER Report Released Date/Time: May 07, 2024 11:29 AM Reporting Lab: [facility] [address] Performing Lab: [facility] [address] APIXABAN 25 ng/mL Social History: Smoking Status (Most current) and Tobacco Use (All prior to encounter date) This section includes the most current, and the historical, smoking and tobacco- related health factors from the [place] facility where the Encounter took place. Current Smoking Status This section includes the most current smoking, or tobacco-related health factor, from the [place] facility where the Encounter took place. Date/Time Current Smoking Status Comment Manohar ity Apr 20, 2024 02:00 PM VA-TOBACCO NEVER USED CIGARETTES [facility] Tobacco Use History This section includes a history of the smoking, or tobacco-related health factors, that were collected on or before the date of the Encounter. The data comes from the [place] facility where the Encounter took place. Date/Time Smoking Status/Tobacco Use Comment F acility Apr 20, 2024 02:00 PM [place]-TOBACCO NEVER USED OTHER TYPE [facility]
--- OUTSIDE RECORDS SUMMARY | 2024-06-01 08:59 | XMS_ITS | Encounter Summary ---
Author Name Department of [place] Organization [facility] Address [address] [place] [address] Care Team Providers Care Boring Inspector Name Role Phone ERIC ROMERO Primary Care [...] to Policy [place] MEDICA (WNR) MEDICARE ADVANTAGE [facility] ([facility]) Jun 03, 2019 [id number] ROB CASTREJON PATIENT MEDICA [facility] ([facility]) MEDICARE [facility] ([facility]) Jun 03, 2017 [id number] [phone] ROB CASTREJON PATIENT MEDICA [facility] ([facility]) MEDICARE ADVANTAGE [facility] ([facility]) Jun 03, 2017 [id number] [phone] ROB CASTREJON PATIENT MEDICARE PART D ([facility]) MEDICARE (M) PART D Apr 03, 2009 PART D [id number] ROB CASTREJON PATIENT [facility] ([facility]) [facility] ORGANIZ MEDIC ARE RICKY Peacock Apr 03, 2009 [id number] [phone] ROB CASTREJON PATIENT Selected Encounter This section includes the information on record at [facility] for the Encounter. Date/Time Encounter Type Encounter Description Reason Pro vider Source IHE Encounter Template Text not used by VA
--- OUTSIDE RECORDS SUMMARY | 2024-06-01 08:59 | XMS_ITS | Encounter Summary ---
Author Name Department of [place] Organization [facility] Address [address] [place] [address] Care Team Providers Care Property Staff Accountant Name Role Phone ERIC ROMERO Primary Care [...] MEDICARE ADVANTAGE [facility] ([facility]) Jun 03, 2019 [id number] [phone] ROB CASTREJON PATIENT MEDICA [facility] ([facility]) MEDICARE [facility] ([facility]) Jun 03, 2017 [id number] [phone] ROB CASTREJON PATIENT MEDICA [facility] ([facility]) MEDICARE ADVANTAGE [facility] ([facility]) Jun 03, 2017 [id number] ROB CASTREJON PATIENT MEDICARE PART D ([facility]) MEDICARE (M) PART D Apr 03, 2009 PART D [id number] ROB CASTREJON PATIENT [facility] ([facility]) [facility] ORGANIZ MEDIC ARE RICKY Peacock Apr 03, 2009 [id number] [phone] ROB CASTREJON PATIENT Selected Encounter This section includes the information on record at [facility] for the Encounter. Date/Time Encounter Type Encounter Description Reason Pro vider Source IHE Encounter Template Text not used by VA
--- OUTSIDE RECORDS SUMMARY | 2024-06-01 08:59 | XMS_ITS | Encounter Summary ---
Author Name [facility] [place] Address [address] [place] [address] Care Team Providers Care Parts Cataloger Name Role Phone ERIC ROMERO Primary Care [...] to Policy Mota MEDICA (WNR) MEDICARE ADVANTAGE [facility] ([facility]) Jun 03, 2019 [id number] ROB CASTREJON PATIENT MEDICA [facility] (WNR) MEDICARE [facility] ([facility]) Jun 03, 2017 [id number] [phone] ROB CASTREJON PATIENT [facility]ICA [facility] (WNR) MEDICARE ADVANTAGE [facility] (WNR) Jun 03, 2017 [id number] ROB CASTREJON PATIENT MEDICARE PART D (WN) MEDICARE (M) PART D Apr 03, 2009 PART D [id number] ROB CASTREJON PATIENT [facility] ([facility]) [facility] ORGANIZ MEDIC ARE [id number] HUGH T Apr 03, 2009 [id number] [phone] ROB SHEARER PATIENT Selected Encounter This section includes the information on record at [place] for the Encounter. Date/Time Encounter Type Encounter Description Reason Provider Source May 28, 2024 03:09 PM MTMS BY CLARITZA DAVIS 15 MIN TELEPHONE/TOMASA YUNG ICD-10-CM Z79.01 FDC (current) use of anticoagulants POEPPING,HARRY Dupree E Encounter Template Text not used by [place] Assessments - Encounter Diagnoses This section includes the primary and secondary diagnoses documented for the Encounter. Date/Time Primary/Secondary Diagnosis Diagnosis Name Provider Source May 28, 2024 03:09 PM PRIMARY FDC (current) use of anticoagulants [facility] May 28, 2024 03:09 PM SECONDARY Encounter for therapeutic drug level monitoring [facility] May 28, 2024 03:09 PM SECONDARY Personal history of other venous thrombosis and embolism [facility] May 28, 2024 03:09 PM SECONDARY Personal history of pulmonary embolism [facility] Lab Results: +/- 30 days of the encounter This section includes the Chemistry and Hematology Lab Results on record with [place] for the patient. Radiology Reports and Pathology Reports are provided separately, in subsequent sections. Lab Results This section contains the Chemistry/Hematology Results that were resulted 30 days before or 30 daysafter the date of the Encounter. Date/Time Source Result Type Result - Unit Interpretation Reference Range Comment May 25, 2024 10:35 AM [facility] APIXABAN Specimen Type: PLASMA No comment entered. Ordering Provider: CHIO SAWYER Report Released Date/Time: May 07, 2024 11:29 AM Reporting Lab: [facility] [address] Performing Lab: [facility] [address] APIXABAN 25 ng/mL Social History: Smoking Status (Most current) and Tobacco Use (All prior to encounter date) This section includes the most current, and the historical, smoking and tobacco- related health factors from the [place] facility where the Encounter took place. Current Smoking Status This section includes the most current smoking, or tobacco-related health factor, from the [place] facility where the Encounter took place. Date/Time Current Smoking Status Comment Manohar sotomayor Apr 20, 2024 02:00 PM VA-TOBACCO NEVER USED CIGARETTES [facility] Tobacco Use History This section includes a history of the smoking, or tobacco-related health factors, that were collected on or before the date of the Encounter. The data comes from the [place] facility where the Encounter took place. Date/Time Smoking Status/Tobacco Use Comment F ryan Apr 20, 2024 02:00 PM VA-TOBACCO NEVER USED OTHER TYPE [facility] Encounter Notes: All associated encounter notes This section contains the clinical notes associated to the Encounter. 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 -- apixaban Xa drawn 05/25/24 was low (see note 05/26/24) - Post-op A.fib (2021); after 4 months and no recurrence; cards recs no AC needed for A.fib indication - Thombophilia work up at [facility] all negative - Prior major bleeds: o GIB in while on warfarin - Prior anticoagulants: o warfarin , something he can't recall then a period of nothing, then apixaban 2021 - Start date: ~10/2021 LMD, CECY 05/2024 - Anticipated duration: indefinite - HASBLED extrapolated =2 (age, GIB/anemia) - Risk of recurrent VTE (Chest 2016): -?provoked after surgery: 3% in 5 years -?provoked due to non-surgical transient risk factor: 15%/5 years -?unprovoked: 30% in 5 years (continue unless high bleed risk) -?associated with cancer: 15% annual risk Notes: CECY from [facility]; PCP is Kalani Care Coordination: Specialist care to continue at [facility]. SUBJECTIVE/OBJECTIVE: Obtained from chart review and pt by phone. Pt contacted [facility] anticoag clinic after discussion with local vascular service regarding review of apixaban Xa levels. Pt reports that local vascular team would be fine with pt remaining on apixaban 5mg q12h or transitioning to rivaroxaban. Dashboard flags: none Labs ==== Age: 79 Height: 72 in [182.9 cm] (04/20/2024 14:13) Weight: 244 lb [110.68 kg] (04/20/2024 14:13) Collection DT Specimen Test Name Result Units Ref Range 04/20/2024 15:24 PLASMA CREATININE 1.2 mg/dL 0.7 - 1.2 CrCl=76.86 (Wt: 04/20/2024 14:13) (Actual Body Weight) Collection DT Spec WBC HGB HCT PLT [...] 15:24 PLASMA ALT/SGPT 27 U/L Ref: <=44 ASSESSMENT/PLAN: After further discussion with pt today, recommend to transition to rivaroxaban with h/o total procto-colectomy and ileostomy as rivaroxaban is primarily absorbed in the stomach. No further rivaroxaban Xa level required due to primary absorption in the stomach. Pt in agreement. Patient is likely NOT appropriate for dose reduction after initial 6 months d/t: h/o recurrent & separate unprovoked proximal DVT or PE events. - Continue current apixaban dose of 5mg q12h until new rivaroxaban Rx received. Once received, start taking Rivaroxaban 20mg daily w/ meal and discontinue use of apixaban. - Education attempt(s) below. Will mail DOAC/Rx education materials. - Appropriate review planned: periodic, initial, ~4-week - Monitor dashboard for labs, drug interactions, and compliance. - Dashboard flags reviewed/cleared, if applicable. - Lab monitoring frequency defined by dashboard or as clinically indicated. - Rx assessed - will enter new Rx for 30ds w/ refills. - MSA TO MAIL OUT RIVAROXABAN EDUCATION PACKET Time spent with patient: 30 minutes Patient Education of Treatment Plan: Indicates readiness to learn, verbalizes understanding, agreement and satisfaction with the treatment plan. Denies further questions. Anticoagulation Educational Assessment Part One Barriers/Special Needs No barriers identified Part Two Readiness to learn No barriers identified PARTICIPANTS: Patient TEACHING STRATEGY: 1:1, Written/print materials Rivaroxaban Content Reviewed: o Recognize medication by names (rivaroxaban (Xarelto)) & proper tablet identification (on prescription bottle) o Indication, expected duration for therapy o Daily dosage, importance of medication adherence, management of missed/extra doses o Monitoring requirements, importance of compliance with follow-up/lab monitoring requirements o Risks and benefits of [...] anticoagulation clinic and instructions for how to pear picker/obtain supply of medication. PATIENT/FAMILY RESPONSE (OUTCOME): Verbalizes critical information and understanding about the topic FOLLOW-UP RECOMMENDED: None needed /tao/ Joe Plascencia PharmD, BCACP Clinical Advanced Practice Provider Signed: 05/28/2024 15:27 Receipt Acknowledged By: 05/29/2024 07:33 /tao/ CARMEN SOTELO MEDICAL SUPPORT ASSISTAT JOE PLASCENCIA [facility]
--- OUTSIDE RECORDS SUMMARY | 2024-06-01 08:59 | XMS_ITS | Encounter Summary ---
Author Name [facility] [place] Address [address] [place] [address] Care Team Providers Care Help Desk Coordinator Name Role Phone ERIC ROMERO Primary Care [...] to Policy Mota MEDICA (WNR) MEDICARE ADVANTAGE [facility] (WNR) Jun 03, 2019 [id number] ADRIANBRISSAKatherineROB JS PATIENT MEDICA [facility] (WNR) MEDICARE ADVANTAGE [facility] (WNR) Jun 03, 2017 [id number] [phone] ADRIANBRISSAROB Murphy PATIENT MEDICA [facility] (WNR) MEDICARE ADVANTAGE [facility] (WNR) Jun 03, 2017 [id number] ADRIANBRISSAROB Murphy PATIENT MEDICARE PART D (WNR) MEDICARE (M) PART D Apr 03, 2009 PART D [id number] ADRIANBRISSAKatherineROBLES PATIENT [facility] (WNR) [facility] ORGANIZ MEDIC ARE RICKY Peacock Apr 03, 2009 [id number] [phone] ROB CASTREJON PATIENT Selected Encounter This section includes the information on record at [place] for the Encounter. Date/Time Encounter Type Encounter Description Reason Provider Source May 18, 2024 08:09 AM [facility] OL DIG ASSMT&MGMT 5-10 CLINICAL PHARMACY ICD-10-CM Z79.01 intermediate accountant (current) use of anticoagulants ROB SAWYER IHKatherine Encounter Template Text not used by [place] Assessments - Encounter Diagnoses This section includes the primary and secondary diagnoses documented for the Encounter. Date/Time Primary/Secondary Diagnosis Diagnosis Name Provider Source May 18, 2024 08:10 AM PRIMARY intermediate accountant (current) use of anticoagulants ROB SAWYER [facility] Plan of Treatment: Future Appointments (+ 6 months) and Future Tests (+/- 45 days) The Plan of Treatment section includes future care activities for the patient from all [place] treatmentfacilities. This section includes future appointments and future orders which are active, pending or scheduled. Future Appointments This section includes appointments that were scheduled to occur 6 months from the date of the Encounter, up to a maximum of 20 appointments. The data comes from all [place] treatment facilities. Appointment Date/Time Appointment Type Appointme nt Facility Name May 25, 2024 11:00 AM AMBULATORY - NONE [facility] May 25, 2024 11:20 AM [facility] Lab Results: +/- 30 days of [...] Range Comment May 25, 2024 10:35 AM [facility] APIXABAN Specimen Type: PLASMA No comment entered. Ordering Provider: CINDY SAWYER Report Released Date/Time: May 07, 2024 11:29 AM Reporting Lab: [facility] [id number] Performing Lab: [facility] [address] APIXABAN 25 ng/mL Apr 20, 2024 03:24 PM [facility] LUPUS INHIBITOR PANEL Specimen Type: PLASMA No comment entered. Ordering Provider: ERIC ROMERO Report Released Date/Time: Apr 20, 2024 03:18 PM Reporting Lab: [facility] [phone] Performing Lab: [facility] [address] .dRVVT NORM. RATIO 0.96 {ratio} <1.15 .SILICA CLOT RATIO 1.12 {ratio} <1.18 LUPUS INHIBIT INTERP NEGATIVE -negative Apr 20, 2024 03:24 PM [facility] METHYLMALONIC ACID Specimen Type: SERUM No comment entered. Ordering Provider: ERIC ROMERO Report Released Date/Time: Apr 20, 2024 03:18 PM Reporting Lab: [facility] [address] Performing Lab: [facility] [address] METHYLMALONIC ACID 234 nmol/L 0-400 Apr 20, 2024 03:24 PM [facility] PROTEIN C (FUNC) Specimen Type: PLASMA No comment entered. Ordering Provider: ERIC ROMERO Report Released Date/Time: Apr 20, 2024 03:18 PM Reporting Lab: [facility] [address] Performing Lab: [facility] [address] PROTEIN C (FUNC) 94 70-140 Apr 20, 2024 03:24 PM [facility] PROTEIN S-FREE Specimen Type: PLASMA No comment entered. Ordering Provider: ERIC ROMERO Report Released Date/Time: Apr 20, 2024 03:18 PM Reporting Lab: [facility] [address] Performing Lab: [facility] [address] PROTEIN S-FREE 110 74-146 Apr 20, 2024 03:24 PM [facility] ANTI-CARDIOLIPIN WALKER PANEL Specimen Type: SERUM [...] additional information, please refer to .AGNES IGM:http://educa tion.Conel[employer].com/faq/FA Q109 .AGNES IGM:(This link is being provided for informational/ .AGNES IGM:educational purposes only.) .AGNES IGM:Test Performed by [facility], .AGNES IGM:ID [employer] [place], .AGNES IGM:[id number] [place], [place] .AGNES IGM:Lito Kruse M.D., Ph.D., Director of Laboratories .AGNES IGM: , CLIA [id number] Ordering Provider: ERIC ROMERO Report Released Date/Time: Apr 20, 2024 03:18 PM Reporting Lab: [facility] [address] Performing Lab: [address] CARDIOLIPIN,IG G WALKER 2.5 SEE BELOW CARDIOLIPIN,IG M WALKER 11.3 SEE BELOW Apr 20, 2024 03:24 PM [facility] B 12 Specimen Type: SERUM No comment entered. Ordering Provider: ERIC ROMERO Report Released Date/Time: Apr 20, 2024 03:18 PM Reporting Lab: [facility] [address] Performing Lab: [facility] [address] B 12 336 pg/mL 213-816 Apr 20, 2024 03:24 PM [facility] FOLATE Specimen Type: SERUM No comment entered. Ordering Provider: ERIC ROMERO Report Released Date/Time: Apr 20, 2024 03:18 PM Reporting Lab: [facility] [address] Performing Lab: [facility] [address] FOLATE 17.5 ng/mL >7.0 Apr 20, 2024 03:24 PM [facility] BASIC METABOLIC PANEL+MG Specimen Type: PLASMA No comment entered. Ordering Provider: ERIC ROMERO Report Released Date/Time: Apr 20, 2024 03:18 PM Reporting Lab: [facility] [address] Performing Lab: [facility] [address] CREATININE 1.2 mg/dL 0.7-1.2 UREA NITROGEN 18 mg/dL 8-26 GLUCOSE 97 mg/dL 70-100 SODIUM 142 mmol/L 136-145 POTASSIUM 4.1 mmol/L 3.5-5.1 CHLORIDE 111 mmol/L H 98-107 CO2 22 mmol/L 22-29 CALCIUM 9.4 mg/dL 8.4-10.2 MAGNESIUM 1.9 mg/dL 1.6-2.6 ANION GAP 9 mmol/L 5-15 .CREAT EGFR(CKD-EPI) 62 >60 Apr 20, 2024 03:24 PM [facility] CBC & DIFF Specimen Type: BLOOD Comment: Automated Differential Performed Ordering Provider: ERIC ROMERO Report Released Date/Time: Apr 20, 2024 03:18 PM Reporting Lab: [facility] [address] Performing Lab: [facility] [address] WBC 9.3 4.0-11.0 RBC 4.71 4.60-6.20 HGB [...] 0.0 0.0-0.1 Apr 20, 2024 03:24 PM [facility] HEMOGLOBIN A1C Specimen Type: BLOOD Comment: [...] Apr 20, 2024 03:18 PM Reporting Lab: [facility] [address] Performing Lab: [facility] [address] HEMOGLOBIN A1C 5.5 4.0-6.0 Apr 20, 2024 03:24 PM [facility] IRON GROUP Specimen Type: SERUM No comment entered. Ordering Provider: ERIC ROMERO Report Released Date/Time: Apr 20, 2024 03:18 PM Reporting Lab: [facility] [address] Performing Lab: [facility] [address] IRON 45 ug/dL L 65-175 TIBC,CALCULATE D 313 ug/dL 250-425 FERRITIN 115.0 ng/mL 21.8-274.7 IRON SATURATION 14 L 20-50 TRANSFERRIN 250 mg/dL 163-382 Apr 20, 2024 03:24 PM [facility] PT/INR(ANTICOAG) Specimen Type: PLASMA No comment entered. Ordering Provider: ERIC ROMERO Report Released Date/Time: Apr 20, 2024 03:18 PM Reporting Lab: [facility] [address] Performing Lab: [facility] [address] .INR 1.2 H 0.8-1.1 .PT 13.5 s H 9.4-12.5 Apr 20, 2024 03:24 PM [facility] LIVER FUNCTION TESTS Specimen Type: PLASMA No comment entered. Ordering Provider: ERIC ROMERO Report Released Date/Time: Apr 20, 2024 03:18 PM Reporting Lab: [facility] [address] Performing Lab: [facility] [address] BILIRUBIN, TOTAL 0.5 mg/dL 0.2-1.2 ALKALINE PHOSPHATASE 67 U/L 40-150 ALT/SGPT 27 U/L <44 AST/SGOT 28 U/L 11-34 GAMMA GTP 35 U/L <54 Social History: Smoking Status (Most current) and Tobacco Use (All prior to encounter date) This section includes the most current, and the historical, smoking and tobacco- related health factors from the [facility] where the Encounter took place. Current Smoking Status This section includes the most current smoking, or tobacco-related health factor, from the [place] facility where the Encounter took place. Date/Time Current Smoking Status Comment Manohar sotomayor Apr 20, 2024 02:00 PM VA-TOBACCO NEVER USED CIGARETTES [facility] Tobacco Use History This section includes a history of the smoking, or tobacco-related health factors, that were collected on or before the date of the Encounter. The data comes from the [place] facility where the Encounter took place. Date/Time Smoking Status/Tobacco Use Comment F ackatelyn Apr 20, 2024 02:00 PM AR-TOBACCO NEVER USED OTHER TYPE [facility] Encounter Notes: All associated encounter notes This section contains the clinical notes associated to the Encounter. Date/Time Encounter Note(s) Provider Source May 18, 2024 08:09 AM MEDICATION MGT CON SULT: LOCAL TITLE: ANTICOAGULATION CLINIC CONSULT STANDARD TITLE: MEDICATION MGT CONSULT DATE OF NOTE: MAY 18, 2024@08:09 ENTRY DATE: MAY 18, 2024@08:10:02 AUTHOR: BREE SAWYER COSIGNER: URGENCY: STATUS: COMPLETED ANTICOAGULATION CLINIC CONSULT Has ADDENDA See 05/07/2024 for intake note. /tao/ TAJ SAWYER Pharmacist Signed: 05/18/2024 08:10 05/21/2024 ADDENDUM STATUS: COMPLETED Patient had called has rescheduled to 05/25/24. /tao/ CARMEN SOTELO MEDICAL SUPPORT ASSISTAT Signed: 05/21/2024 08:29 BREE SAWYER [facility]
--- OUTSIDE RECORDS SUMMARY | 2024-06-01 08:59 | XMS_ITS | Encounter Summary ---
Author Name [facility] [facility] [place] [facility] [place] Address [address] [place] [address] Care Team Providers Care Blood Collector Name Role Phone ERIC ROMERO Primary Care [...] to Policy [place] MEDICA (WNR) MEDICARE ADVANTAGE [facility] ([facility]) Jun 03, 2019 [id number] ROB CASTREJON PATIENT MEDICA [facility] ([facility]) MEDICARE [facility] ([facility]) Jun 03, 2017 [id number] [phone] ROB CASTREJON PATIENT MEDICA [facility] (WNR) MEDICARE ADVANTAGE [facility] (WNR) Jun 03, 2017 [id number] [phone] ROB CASTREJON PATIENT MEDICARE PART D ([facility]) MEDICARE ([place]) PART D Apr 03, 2009 PART D [id number] ROB CASTREJON PATIENT [facility] ([facility]) [facility] MEDIC ARE [id number] HUGH T Apr 03, 2009 [id number] ROB SHEARER PATIENT Selected Encounter This section includes the information on record at [place] for the Encounter. 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, bi LISA ROMERO B [facility] Apr 20, 2024 04:22 PM SECONDARY Acquired absence of other specified parts of digestive tract LISA ROMERO B [facility] Apr 20, 2024 04:22 PM SECONDARY Carcinoma in situ of prostate LISA ROMERO EN B [facility] Apr 20, 2024 04:22 PM SECONDARY Chronic rhinitis LISA ROMERO B [facility] Apr 20, 2024 04:22 PM SECONDARY Essential (primary) hypertension LISA ROMERO EN B [facility] Apr 20, 2024 04:22 PM SECONDARY Iron deficiency anemia, unspecified LISA ROMERO EN B [facility] Apr 20, 2024 04:22 PM SECONDARY Obstructive sleep apnea (adult) (pediatric) LISA ROMERO EN B [facility] Apr 20, 2024 04:22 PM SECONDARY Other asthma LISA ROMERO EN B [facility] Apr 20, 2024 04:22 PM SECONDARY Prediabetes LISA ROMERO EN B [facility] Apr 20, 2024 04:22 PM SECONDARY Ulcerative colitis, unsp with unspecified complications LISA ROMERO EN B [facility] Apr 20, 2024 04:22 PM SECONDARY Unspecified atrial fibrillation LISA ROMERO EN B [facility] Plan of Treatment: Future Appointments (+ 6 months) and Future Tests (+/- 45 days) The Plan of Treatment section includes future care activities for the patient from all [place] treatmentfacilities. This section includes future appointments and future orders which are active, pending or scheduled. Future Appointments This section includes appointments that were scheduled to occur 6 months from the date of the Encounter, up to a maximum of 20 appointments. The data comes from all [place] treatment facilities. Appointment Date/Time Appointment Type Appointme nt Facility Name May 25, 2024 11:00 AM AMBULATORY - NONE JOYCE KHAN [facility] May 25, 2024 11:20 AM AMBULATORY - MEDICINE CHARITY RAMIREZ [facility] Lab Results: +/- 30 days of the encounter This section includes the Chemistry and Hematology Lab Results on record with [place] for the patient. Radiology Reports and Pathology [...] Apr 20, 2024 03:18 PM Reporting Lab: [facility] [id number] Performing Lab: [facility] [address] .dRVVT NORM. RATIO 0.96 {ratio} <1.15 .SILICA CLOT RATIO 1.12 {ratio} <1.18 LUPUS INHIBIT INTERP NEGATIVE -negative Apr 20, 2024 03:24 PM [facility] METHYLMALONIC ACID Specimen Type: SERUM No comment entered. Ordering Provider: ERIC ROMERO Report Released Date/Time: Apr 20, 2024 03:18 PM Reporting Lab: [facility] [address] Performing Lab: [facility] [address] METHYLMALONIC ACID 234 nmol/L 0-400 Apr 20, 2024 03:24 PM [facility] PROTEIN C (FUNC) Specimen Type: PLASMA No comment entered. Ordering Provider: ERIC ROMERO Report Released Date/Time: Apr 20, 2024 03:18 PM Reporting Lab: [facility] [address] Performing Lab: [facility] [address] PROTEIN C (FUNC) 94 70-140 Apr 20, 2024 03:24 PM [facility] PROTEIN S-FREE Specimen Type: PLASMA No comment entered. Ordering Provider: ERIC ROMERO Report Released Date/Time: Apr 20, 2024 03:18 PM Reporting Lab: [facility] [address] Performing Lab: [facility] [address] PROTEIN S-FREE 110 74-146 Apr 20, 2024 [...] additional information, please refer to .AGNES IGM:[email or web address] .AGNES IGM:(This link is being provided for informational/ .AGNES IGM:educational purposes only.) .AGNES IGM:Test Performed by [facility], .AGNES IGM:[employer] [facility], .AGNES IGM:[address] [place], [place] .AGNES IGM:Lito Kruse M.D., Ph.D., Director of Laboratories .AGNES IGM: , CLIA [id number] Ordering Provider: ERIC ROMERO Report Released Date/Time: Apr 20, 2024 03:18 PM Reporting Lab: [facility] [address] Performing Lab: [facility] [address] [facility] CARDIOLIPIN,IG G WALKER 2.5 SEE BELOW CARDIOLIPIN,IG M WALKER 11.3 SEE BELOW Apr 20, 2024 03:24 PM [facility] B 12 Specimen Type: SERUM No comment entered. Ordering Provider: ERIC ROMERO Report Released Date/Time: Apr 20, 2024 03:18 PM Reporting Lab: [facility] [address] Performing Lab: [facility] [address] B 12 336 pg/mL 213-816 Apr 20, 2024 03:24 PM [facility] FOLATE Specimen Type: SERUM No comment entered. Ordering Provider: ERIC ROMERO Report Released Date/Time: Apr 20, 2024 03:18 PM Reporting Lab: [facility] [address] Performing Lab: [facility] [address] FOLATE 17.5 ng/mL >7.0 Apr 20, 2024 03:24 PM [facility] BASIC METABOLIC PANEL+MG Specimen Type: PLASMA No comment entered. Ordering Provider: ERIC ROMERO Report Released Date/Time: Apr 20, 2024 03:18 PM Reporting Lab: [facility] [address] Performing Lab: [facility] [address] CREATININE 1.2 mg/dL 0.7-1.2 UREA NITROGEN 18 [...] Apr 20, 2024 03:18 PM Reporting Lab: [facility] [address] Performing Lab: [facility] [address] WBC 9.3 4.0-11.0 RBC 4.71 4.60-6.20 HGB [...] Apr 20, 2024 03:18 PM Reporting Lab: [facility] [address] Performing Lab: [facility] [address] HEMOGLOBIN A1C 5.5 4.0-6.0 Apr 20, 2024 03:24 PM [facility] IRON GROUP Specimen Type: SERUM No comment entered. Ordering Provider: ERIC ROMERO Report Released Date/Time: Apr 20, 2024 03:18 PM Reporting Lab: [facility] [address] Performing Lab: [facility] [address] IRON 45 ug/dL L 65-175 TIBC,CALCULATE D 313 ug/dL 250-425 FERRITIN 115.0 ng/mL 21.8-274.7 IRON SATURATION 14 L 20-50 TRANSFERRIN 250 mg/dL 163-382 Apr 20, 2024 03:24 PM [facility] PT/INR(ANTICOAG) Specimen Type: PLASMA No comment entered. Ordering Provider: ERIC ROMERO Report Released Date/Time: Apr 20, 2024 03:18 PM Reporting Lab: [facility] [address] Performing Lab: [facility] [address] .INR 1.2 H 0.8-1.1 .PT 13.5 s H 9.4-12.5 Apr 20, 2024 03:24 PM [facility] LIVER FUNCTION TESTS Specimen Type: PLASMA No comment entered. Ordering Provider: ERIC ROMERO Report Released Date/Time: Apr 20, 2024 03:18 PM Reporting Lab: [facility] [address] Performing Lab: [facility] [address] BILIRUBIN, TOTAL 0.5 mg/dL 0.2-1.2 ALKALINE PHOSPHATASE [...] 137/72 20 92 0 72 244 33 CHRISTINE CAMACHO [facility] Social History: Smoking Status (Most current) and Tobacco Use (All prior to encounter date) This section includes the most current, and the historical, smoking and tobacco- related health factors from the [place] facility where the Encounter took place. Current Smoking Status This section includes the most current smoking, or tobacco-related health factor, from the [place] facility where the Encounter took place. Date/Time Current Smoking Status Comment Facil ity Apr 20, 2024 02:00 PM [place]-TOBACCO NEVER USED CIGARETTES [facility] Tobacco Use History This section includes a history of the smoking, or tobacco-related health factors, that were collected on or before the date of the Encounter. The data comes from the [place] facility where the Encounter took place. Date/Time Smoking Status/Tobacco Use Comment F acility Apr 20, 2024 02:00 PM [place]-TOBACCO NEVER USED OTHER TYPE [facility] Encounter Notes: All associated encounter notes This section contains the clinical notes associated to the Encounter. Date/Time Encounter Note(s) Provider Source May 04, 2024 03:29 PM LETTERS: LOCAL TITLE: FOLLOW UP RESULTS LETTER STANDARD TITLE: LETTERS DATE OF NOTE: MAY 04, 2024@15:29 ENTRY DATE: MAY 04, 2024@15:29:24 AUTHOR: ERIC ROMERO EXP COSIGNER: URGENCY: STATUS: COMPLETED [facility] [address] [place] [address] May MIGUEL CASTREJON [facility] [place] [address] Dear : I am writing to inform you of the results of testing that you had done recently at the [facility]. Additional Comments: Your iron level was a little low. Taking the iron every other day, as I recommended, *might* improve absorption. All of the tests for coagulopathy were normal. This is good news. You still need to take your apixaban, however. If you have any further questions or problems, please contact our nursing staff or provider at the following number: [phone]. Sincerely, ERIC ROMERO MD STAFF PHYSICIAN ERIC ROMERO [facility] Apr 20, 2024 03:18 PM INTERNAL MEDICINE [...] next steps. Patient is here to establish [facility] care. he receives primary care from Dr. Collins at [facility]. 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 No occupational or exposures of concern. Drinks 1-2 oz ETOH per month. PE: Patient appears younger than stated age. Breathing is non-labored and he is no apparent distress a/p: 1. Ulcerative colitis. s/p colectomy. Managed by [facility]. Wants to get his ostomy supplies from [place]. He will sign up for [employer] and send us the names/list of needed [...] were also reviewed/updated for accuracy. Allergies/ADR from [facility] may not display in CPRS. Use JLV MRT5 - Allergies/ADRs FACILITY ALLERGY/ADR -------- No Remote Allergy/ADR Data available for this patient [place] [facility] No Known Allergies Active and Recently Outpatient [...] ROMERO MD STAFF PHYSICIAN Signed: 05/04/2024 15:29 05/26/2024 ADDENDUM STATUS: COMPLETED Measurement ti11:16AM Spirometry FeV1/VC = 2.29/3.97 pre and 2.76/4.40 post Good effort, all tests meet ATS criteria for acceptability and reproducibility. Neb given with 2.5 mg/3ml Albuterol. No previous PFT's. Interpretation: Definite Obstruction: FEV1/FVC ratio < CI. Consistent with mild impairment, FEV1 Z Score > -1.65. Positive Bronchodilator Response: >/=10% increase in FVC or FEV1. Spirometry normal post bronchodilator. Signed By: Adams Crawford MD /ulysses ROMERO MD STAFF PHYSICIAN Signed: 05/26/2024 08:14 ERIC ROMERO [facility] Apr 20, 2024 02:16 PM INTERNAL MEDICINE [...] medications or herbals. 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 The [place]/caregiver was informed that we will continue to [...] due to responses to other questions. 5. [place] numb or detached from people, activities, or your surroundings? Response not required due to responses to other questions. 6. [place] guilty or unable to stop blaming yourself or others for the event(s) or any problems the event(s) may have caused? Response not required due to responses to other questions. Suicide Screen: C-SSRS Screening [place]-Suicide Severity Rating Scale (C-SSRS Screener) 1. Over [...] Not worried about housing near future The [place] reports the following: Within the past 12 months, you worried whether your food would run out before you got money to buy more. Never true Within the past 12 months, the food you bought just didn't last and you didn't have money to get more. Never true Food Assistance Programs [facility] Food Assistance [facility] Depression Screening: Perform PHQ-2 A PHQ-2 [...] ulcers, or a wound from a medical claims manager or Patient is bed-confined or a wheelchair-user or Patient requires assistance to transfer/change position No, Skin Screen is Negative Home Abuse/Violence Screen Is your home free of abuse and violence? Yes MOVE! Program Screen Body Mass Index (BMI)= 33.2 [place]: No data available [place] Hgb A1C: No data available [place] Hgb A1C: No data available Point of Care Hgb A1C: POC HGB A1C____ Outpatient Nutrition Screen Body Mass Index (BMI)= 33.2 [place]: No data available [place] Hgb A1C: No data available [place] Hgb A1C: No data available Point of [...] the patient require assistance with outpatient visit? Makayla /tao/ JANEL Reza [employer] ([employer]) MEDIA JOB TITLES Signed: 04/20/2024 14:20 JANEL CASTELLANO [facility]
--- OUTSIDE RECORDS SUMMARY | 2024-06-01 08:59 | XMS_ITS | Continuity of Care Document ---
Author Name [facility] Organization [facility] Care Team Providers Care Benefit Specialist Name Role Phone [facility] Unavailable Unavailable Problems Combined list of problems from [facility] and [facility] facilities. It does not include entries that were removed or entered in error. Problem Status Onset Date Problem Type Date of Resolution Comments Source Acquired iron deficiency anemia due to increased iron requirement Active Condition [facility] Benign essential hypertension Active Condition [facility] Carcinoma of prostate Active Condition [facility] Chronic atrial fibrillation Active Condition [facility] Chronic pulmonary embolism Active Condition [facility] History of total colectomy Active Condition [facility] Long-term current use of anticoagulant Active Condition [facility] Obstructive sleep apnea syndrome Active Condition [facility] Rhinitis Active Condition [facility] Ulcerative colitis Active Condition [facility] Diagnosis: ICD-10-CM 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 Medication Details Route Status Patient Instructions Prescription Expires Prescription Number Last Dispense Date Ordering Provider Order Date Order Qty Source APIXABAN 5MG TAB TAKE ONE TABLET BY MOUTH EVERY 12 HOURS TO TREAT AND/OR PREVENT BLOOD CLOTS ORAL DISCONT INUED BY PROVIDE R 05/20/2024 [id number] Mayito ROMERO 2023 60 [facility] ATORVASTATI N CA 10MG TAB TAKE ONE TABLET BY MOUTH EVERY DAY ORAL ACTIVE Mayito ROMERO 2023 [facility] BUDESONIDE 160MCG/FORM OTEROL FUM 4.5MCG/SPRA Y INHL,ORAL,1 0.2GM INHALE 1 PUFF BY INHALATI ON TWICE A DAY AND INHALE 1 PUFF NEEDED FOR SHORTNES S OF BREATH *MAXIMUM 12 PUFFS DAILY RESPIR ATORY (INHAL ATION) ACTIVE 04/22/2025 [id number] Mayito ROMERO 2023 2 [facility] CALCIUM 250MG/VITAM IN D 125UNT TAB TAKE ONE TABLET BY MOUTH EVERY DAY ORAL ACTIVE Mayito ROMERO 2023 [facility] FERROUS GLUCONATE 324MG TAB TAKE ONE TABLET BY MOUTH EVERY DAY ORAL ACTIVE Mayito ROMERO 2023 [facility] FLUTICASONE SOLN,NASAL SPRAY IN EACH NOSTRIL EVERY DAY NASAL ACTIVE Mayito ROMERO 2023 [facility] FOLIC ACID 1MG TAB TAKE ONE TABLET BY MOUTH EVERY DAY ORAL ACTIVE Mayito ROMERO 2023 [facility] METOPROLOL TARTRATE TAB TAKE 12.5MG BY MOUTH TWICE A DAY ORAL ACTIVE Mayito ROMERO 2023 [facility] OMEPRAZOLE 40MG CAP,EC TAKE 1 CAPSULE BY MOUTH EVERY DAY ORAL ACTIVE Mayito ROMERO 2023 [facility] RIVAROXABAN 20MG TAB TAKE ONE TABLET BY MOUTH EVERY DAY TO TREAT AND/OR PREVENT BLOOD CLOTS WITH THE LARGEST MEAL OF THE DAY (REPLACE S APIXABAN ) ORAL ACTIVE 05/29/2025 [id number] JOE ARCOS 2023 30 [facility] Immunizations Combined list of available immunizations from the Department of Defense and Veterans Affairs facilities. Immunization Series Date Given Administered By Site Reaction Lot Number CVX Code Drug Toll Test Worker Status Comments Source PNEUMOCOCCAL CONJUGATE PCV20, POLYSACCHARID E [id number] CONJUGATE, ADJUVANT, PF 2023 216 complet ed [facility] COVID-19 (MODERNA), MRNA, LNP-S, PF, 50 MCG/0.5 ML (AGES 12+ YEARS) 2023 312 complet ed [facility] INFLUENZA, HIGH-DOSE, TRIVALENT, PF 2023 135 complet [employer] TDAP 2022 115 complet [employer] RSV, RECOMBINANT, PROTEIN SUBUNIT RSVPREF, ADJUVANT RECONSTITUTED , 0.5 ML, PF 2022 303 complet [employer] COVID-19 ([facility]), MRNA, LNP-S, PF, CHAPIN-SUCROSE, 30 MCG/0.3 ML (AGES 12+ YEARS) 2022 309 complet [employer] INFLUENZA, HIGH-DOSE, QUADRIVALENT, PF 2022 197 complet [employer] COVID-19 (PFIZER), MRNA, LNP-S, BIVALENT, PF, 30 MCG/0.3 ML DOSE 2022 300 complet [employer] COVID-19 ([facility]), MRNA, LNP-S, BIVALENT, PF, 30 MCG/0.3 ML DOSE 2021 300 complet [employer] INFLUENZA, HIGH-DOSE, QUADRIVALENT, PF 2021 197 complet [employer] COVID-19 (PFIZER), MRNA, LNP-S, PF, 30 MCG/0.3 ML DOSE 2021 208 complet [employer] INFLUENZA, HIGH-DOSE, QUADRIVALENT, PF 2020 197 complet [employer] COVID-19 (PFIZER), MRNA, LNP-S, PF, 30 MCG/0.3 ML DOSE 2020 208 complet [employer] [facility] COVID-19 (PFIZER), MRNA, LNP-S, PF, 30 MCG/0.3 ML DOSE 2020 208 complet [employer] COVID-19 (PFIZER), MRNA, LNP-S, PF, 30 MCG/0.3 ML DOSE 2020 208 complet [employer] INFLUENZA, SPLIT VIRUS, QUADRIVALENT, PF 2019 150 complet [facility] INFLUENZA, HIGH-DOSE, TRIVALENT, PF 2018 135 complet [employer] ZOSTER RECOMBINANT 2018 187 complet ed [facility] ZOSTER RECOMBINANT 2018 187 complet ed [facility] INFLUENZA, UNSPECIFIED FORMULATION 2017 88 complet ed [facility] INFLUENZA, HIGH-DOSE, TRIVALENT, PF 2016 135 complet ed [facility] INFLUENZA, HIGH-DOSE, TRIVALENT, PF 2015 135 complet ed [facility] TYPHOID, VICPS 2014 101 complet ed [facility] INFLUENZA, UNSPECIFIED FORMULATION 2014 88 complet ed [facility] HEP A, ADULT 2014 52 complet ed [facility] PNEUMOCOCCAL CONJUGATE PCV 13 2014 133 complet ed [facility] YELLOW FEVER LIVE 2014 37 complet ed [facility] INFLUENZA, HIGH-DOSE, TRIVALENT, PF 2013 135 complet ed [facility] HEP A, ADULT 2012 52 complet ed [facility] TYPHOID, VICPS 2012 101 complet ed [facility] INFLUENZA, HIGH-DOSE, TRIVALENT, PF 2012 135 complet ed [facility] PNEUMOCOCCAL POLYSACCHARID E PPV23 2012 33 complet ed [facility] TDAP 2012 115 complet ed [facility] INFLUENZA, UNSPECIFIED FORMULATION 2011 88 complet ed [facility] INFLUENZA, SPLIT VIRUS, TRIVALENT, PRESERVATIVE 2010 141 complet ed [facility] INFLUENZA, UNSPECIFIED FORMULATION 2010 88 complet ed [facility] INFLUENZA, SPLIT VIRUS, TRIVALENT, PF 2009 140 complet ed [facility] ZOSTER LIVE 2009 121 complet ed [facility] NOVEL INFLUENZA-H1N 1-09 2008 127 complet ed [facility] PNEUMOCOCCAL POLYSACCHARID E PPV23 2008 33 complet ed [facility] INFLUENZA, SPLIT VIRUS, TRIVALENT, PRESERVATIVE 2008 141 complet ed [facility] PNEUMOCOCCAL POLYSACCHARID E PPV23 2007 33 complet ed [facility] TD (ADULT), 2 LF TETANUS TOXOID, PRESERVATIVE FREE, ADSORBED 2007 09 complet ed [facility] INFLUENZA, SPLIT VIRUS, TRIVALENT, PF 2004 140 complet ed [facility] Results Combined list of recent chemistry, hematology and other laboratory results from Department of Defense and Veterans Affairs, ranging from 15 months to all on record, depending upon the facility. Order Name Results Value Reference Range Date Interpretation Specimen Comments Source APIXABAN APIXABAN [MASS/VOLU ME] IN SERUM OR PLASMA 25 ng/mL 05/25 Specimen Type: PLASMA No comment entered. Ordering Provider: TAJ SAWYER Report Released Date/Time: May 07, 2024 11:29 AM Reporting Lab: [facility] [address] Performing Lab: [facility] [address] [facility] LUPUS INHIBITO R PANEL DRVVT ACTUAL/NOR MAL [PRESENCE] IN PLATELET POOR PLASMA BY COAGULATIO N ASSAY 0.96 {ratio} <1.15 - 1.15 04/20 Specimen Type: PLASMA No comment entered. Ordering Provider: ALENA ROMERO Report Released Date/Time: Apr 20, 2024 03:18 PM Reporting Lab: [facility] [address] Performing Lab: [facility] [address] [facility] LUPUS INHIBITO R PANEL BIJAN VIPER VENOM TIME IN PLATELET POOR PLASMA BY COAGULATIO N ASSAY 1.12 {ratio} <1.18 - 1.18 04/20 Specimen Type: PLASMA No comment entered. Ordering Provider: ALENA ROMERO Report Released Date/Time: Apr 20, 2024 03:18 PM Reporting Lab: [facility] [address] Performing Lab: [facility] [address] [facility] LUPUS INHIBITO R PANEL LUPUS ANTICOAGUL ANT [INTERPRET ATION] IN PLATELET POOR PLASMA NEGATIVE -negative 04/20 Specimen Type: PLASMA No comment entered. Ordering Provider: ALENA ROMERO Report Released Date/Time: Apr 20, 2024 03:18 PM Reporting Lab: [facility] [address] Performing Lab: [facility] [address] [place] [facility] METHYLMA LONIC ACID METHYLMALO KIKO [MOLES/VOL UME] IN SERUM OR PLASMA 234 nmol/L 0 - 400 04/20 Specimen Type: SERUM No comment entered. Ordering Provider: ALENA ROMERO Report Released Date/Time: Apr 20, 2024 03:18 PM Reporting Lab: [facility] [address] Performing Lab: [facility] [address] [place] [facility] PROTEIN C (FUNC) PROTEIN C ACTUAL/NOR MAL IN PLATELET POOR PLASMA BY COAGULATIO N ASSAY 94 70 - 140 04/20 Specimen Type: PLASMA No comment entered. Ordering Provider: ALENA ROMERO Report Released Date/Time: Apr 20, 2024 03:18 PM Reporting Lab: [facility] [address] Performing Lab: [facility] [address] [place] [facility] PROTEIN S-FREE PROTEIN S FREE AG ACTUAL/NOR MAL IN PLATELET POOR PLASMA BY IMMUNOASSA Y 110 74 - 146 04/20 Specimen Type: PLASMA No comment entered. Ordering Provider: ALENA ROMERO Report Released Date/Time: Apr 20, 2024 03:18 PM Reporting Lab: [facility] [address] Performing Lab: [facility] [address] [place] [facility] ANTI-CAR DIOLIPIN WALKER PANEL CARDIOLIPI N IGG [...] .AGNES IGM:The [facility] .AGNES IGM:immunol ogical classificat ion criteria for systemic .AGNES IGM:lupus erythematos us (SLE) include testing for .AGNES IGM:isotype IgA, which has yet to be incorporate d into .AGNES IGM:APS criteria. Low level antiphospho lipid antibodies .AGNES IGM:may sometimes be detected in the setting of infection, .AGNES IGM:drug therapy or aging. .AGNES IGM:For additional information , please refer to .AGNES IGM:http:// [email or web address]/fa q/DPB932 .AGNES IGM:(This link is being provided for information al/ .AGNES IGM:educati onal purposes only.) .AGNES IGM:Test Performed by [employer] [place], .AGNES IGM:[facility], .AGNES IGM:[address] [place], [place] .AGNES IGM:Lito Kruse M.D., Ph.D., Director of Laboratorie s .AGNES IGM: , CLIA [id number] Ordering Provider: ALENA ROMERO Report Released Date/Time: Apr 20, 2024 03:18 PM Reporting Lab: [facility] [address] Performing Lab: [place] [id number] [facility] [place] [facility] ANTI-CAR DIOLIPIN WALKER PANEL CARDIOLIPI N IGM [...] .AGNES IGM:The [facility]ic Lupus Internation al Collabor[facility] ng Clinics .AGNES IGM:immunol ogical classificat ion criteria for systemic .AGNES IGM:lupus erythematos us (SLE) include testing for .AGNES IGM:isotype IgA, which has yet to be incorporate d into .AGNES IGM:APS criteria. Low level antiphospho lipid antibodies .AGNES IGM:may sometimes be detected in the setting of infection, .AGNES IGM:drug therapy or aging. .AGNES IGM:For additional information , please refer to .AGNES IGM:http:// [email or web address] [email or web address]/fa q/SYC978 .AGNES IGM:(This link is being provided for information al/ .AGNES IGM:educati onal purposes only.) .AGNES IGM:Test Performed by [facility], .AGNES IGM:[facility], .AGNES IGM:[address] [place], [place] .AGNES IGM:Lito Kruse M.D., Ph.D., Director of Laboratorie s LilianaAGNES IGM: , CLIA [id number] Ordering Provider: ALENA ROMERO Report Released Date/Time: Apr 20, 2024 03:18 PM Reporting Lab: [facility] [address] Performing Lab: [facility] [address] [facility] [place] [facility] B 12 COBALAMIN (VITAMIN B12) [MASS/VOLU ME] IN SERUM OR PLASMA 336 pg/mL 213 - 816 04/20 Specimen Type: SERUM No comment entered. Ordering Provider: ALENA ROMERO Report Released Date/Time: Apr 20, 2024 03:18 PM Reporting Lab: [facility] [address] Performing Lab: [facility] [address] [place] [facility] FOLATE FOLATE [MASS/VOLU ME] IN SERUM OR PLASMA 17.5 ng/mL 7.0 04/20 Specimen Type: SERUM No comment entered. Ordering Provider: ALENA ROMERO Report Released Date/Time: Apr 20, 2024 03:18 PM Reporting Lab: [facility] [address] Performing Lab: [facility] [address] [place] [facility] BASIC METABOLI C PANEL+MG CREATININE [MASS/VOLU ME] IN SERUM OR PLASMA 1.2 mg/dL 0.7 - 1.2 04/20 Specimen Type: PLASMA No comment entered. Ordering Provider: ALENA ROMERO Report Released Date/Time: Apr 20, 2024 03:18 PM Reporting Lab: [facility] [address] Performing Lab: [facility] [address] [place] [facility] BASIC METABOLI C PANEL+MG UREA NITROGEN [MASS/VOLU ME] IN SERUM OR PLASMA 18 mg/dL 8 - 26 04/20 Specimen Type: PLASMA No comment entered. Ordering Provider: ALENA ROMERO Report Released Date/Time: Apr 20, 2024 03:18 PM Reporting Lab: [facility] [address] Performing Lab: [facility] [address] [place] [facility] BASIC METABOLI C PANEL+MG GLUCOSE [MASS/VOLU ME] IN SERUM OR PLASMA 97 mg/dL 70 - 100 04/20 Specimen Type: PLASMA No comment entered. Ordering Provider: ALENA ROMERO Report Released Date/Time: Apr 20, 2024 03:18 PM Reporting Lab: [facility] [address] Performing Lab: [facility] [address] [place] [facility] BASIC METABOLI C PANEL+MG SODIUM [MOLES/VOL UME] IN SERUM OR PLASMA 142 mmol/L 136 - 145 04/20 Specimen Type: PLASMA No comment entered. Ordering Provider: ALENA ROMERO Report Released Date/Time: Apr 20, 2024 03:18 PM Reporting Lab: [facility] [address] Performing Lab: [facility] [address] [place] [facility] BASIC METABOLI C PANEL+MG POTASSIUM [MOLES/VOL UME] IN SERUM OR PLASMA 4.1 mmol/L 3.5 - 5.1 04/20 Specimen Type: PLASMA No comment entered. Ordering Provider: ALENA ROMERO Report Released Date/Time: Apr 20, 2024 03:18 PM Reporting Lab: [facility] [address] Performing Lab: [facility] [address] [place] [facility] BASIC METABOLI C PANEL+MG CHLORIDE [MOLES/VOL UME] IN SERUM OR PLASMA 111 mmol/L 98 - 107 04/20 H Specimen Type: PLASMA No comment entered. Ordering Provider: ALENA ROMERO Report Released Date/Time: Apr 20, 2024 03:18 PM Reporting Lab: [facility] [address] Performing Lab: [facility] [address] [place] [facility] BASIC METABOLI C PANEL+MG CARBON DIOXIDE, TOTAL [MOLES/VOL UME] IN SERUM OR PLASMA 22 mmol/L 22 - 29 04/20 Specimen Type: PLASMA No comment entered. Ordering Provider: ALENA ROMERO Report Released Date/Time: Apr 20, 2024 03:18 PM Reporting Lab: [facility] [address] Performing Lab: [facility] [address] [place] [facility] BASIC METABOLI C PANEL+MG CALCIUM [MASS/VOLU ME] IN SERUM OR PLASMA 9.4 mg/dL 8.4 - 10.2 04/20 Specimen Type: PLASMA No comment entered. Ordering Provider: ALENA ROMERO Report Released Date/Time: Apr 20, 2024 03:18 PM Reporting Lab: [facility] [address] Performing Lab: [facility] [address] [place] [facility] BASIC METABOLI C PANEL+MG MAGNESIUM [MASS/VOLU ME] IN SERUM OR PLASMA 1.9 mg/dL 1.6 - 2.6 04/20 Specimen Type: PLASMA No comment entered. Ordering Provider: ALENA ROMERO Report Released Date/Time: Apr 20, 2024 03:18 PM Reporting Lab: [facility] [address] Performing Lab: [facility] [address] [place] [facility] BASIC METABOLI C PANEL+MG ANION GAP IN SERUM OR PLASMA 9 mmol/L 5 - 15 04/20 Specimen Type: PLASMA No comment entered. Ordering Provider: ALENA ROMERO Report Released Date/Time: Apr 20, 2024 03:18 PM Reporting Lab: [facility] [address] Performing Lab: [facility] [address] [place] [facility] BASIC METABOLI C PANEL+MG GLOMERULAR FILTRATION RATE/1.73 SQ M.PREDICTE D [VOLUME RATE/AREA] IN SERUM, PLASMA OR BLOOD BY CREATININE -BASED FORMULA (CKD-EPI 2020) 62 60 04/20 Specimen Type: PLASMA No comment entered. Ordering Provider: ALENA ROMERO Report Released Date/Time: Apr 20, 2024 03:18 PM Reporting Lab: [facility] [address] Performing Lab: [facility] [address] [place] [facility] CBC & DIFF LEUKOCYTES [#/VOLUME] IN BLOOD BY AUTOMATED COUNT 9.3 4.0 - 11.0 04/20 Specimen Type: BLOOD Comment: Automated Differentia l Performed Ordering Provider: ALENA ROMERO Report Released Date/Time: Apr 20, 2024 03:18 PM Reporting Lab: [facility] [address] Performing Lab: [facility] [address] [place] [facility] CBC & DIFF ERYTHROCYT ES [#/VOLUME] IN BLOOD BY AUTOMATED COUNT 4.71 4.60 - 6.20 04/20 Specimen Type: BLOOD Comment: Automated Differentia l Performed Ordering Provider: ALENA ROMERO Report Released Date/Time: Apr 20, 2024 03:18 PM Reporting Lab: [facility] [address] Performing Lab: [facility] [address] [place] [facility] CBC & DIFF HEMOGLOBIN [MASS/VOLU ME] IN BLOOD 14.2 g/dL 13.5 - 17.9 04/20 Specimen Type: BLOOD Comment: Automated Differentia l Performed Ordering Provider: ALENA ROMERO Report Released Date/Time: Apr 20, 2024 03:18 PM Reporting Lab: [facility] [address] Performing Lab: [facility] [address] [place] [facility] CBC & DIFF HEMATOCRIT [VOLUME FRACTION] OF BLOOD BY AUTOMATED COUNT 43.9 41.0 - 54.0 04/20 Specimen Type: BLOOD Comment: Automated Differentia l Performed Ordering Provider: ALENA ROMERO Report Released Date/Time: Apr 20, 2024 03:18 PM Reporting Lab: [facility] [address] Performing Lab: [facility] [address] [place] [facility] CBC & DIFF MCV [ENTITIC VOLUME] BY AUTOMATED COUNT 93.2 fL 80.0 - 100.0 04/20 Specimen Type: BLOOD Comment: Automated Differentia l Performed Ordering Provider: ALENA ROMERO Report Released Date/Time: Apr 20, 2024 03:18 PM Reporting Lab: [facility] [address] Performing Lab: [facility] [address] [place] [facility] CBC & DIFF MCH [ENTITIC MASS] BY AUTOMATED COUNT 30.1 pg 27.0 - 33.0 04/20 Specimen Type: BLOOD Comment: Automated Differentia l Performed Ordering Provider: ALENA ROMERO Report Released Date/Time: Apr 20, 2024 03:18 PM Reporting Lab: [facility] [address] Performing Lab: [facility] [address] [place] [facility] CBC & DIFF MCHC [MASS/VOLU ME] BY AUTOMATED COUNT 32.3 g/dL 32.0 - 37.5 04/20 Specimen Type: BLOOD Comment: Automated Differentia l Performed Ordering Provider: ALENA ROMERO Report Released Date/Time: Apr 20, 2024 03:18 PM Reporting Lab: [facility] [address] Performing Lab: [facility] [address] [place] [facility] CBC & DIFF PLATELETS [#/VOLUME] IN BLOOD BY AUTOMATED COUNT 230 150 - 400 04/20 Specimen Type: BLOOD Comment: Automated Differentia l Performed Ordering Provider: ALENA ROMERO Report Released Date/Time: Apr 20, 2024 03:18 PM Reporting Lab: [facility] [address] Performing Lab: [facility] [address] [place] [facility] CBC & DIFF PLATELET MEAN VOLUME [ENTITIC VOLUME] IN BLOOD BY AUTOMATED COUNT 8.9 fL 9.1 - 13.0 04/20 L Specimen Type: BLOOD Comment: Automated Differentia l Performed Ordering Provider: ALENA ROMERO Report Released Date/Time: Apr 20, 2024 03:18 PM Reporting Lab: [facility] [address] Performing Lab: [facility] [address] [place] [facility] CBC & DIFF NEUTROPHIL S/100 LEUKOCYTES IN BLOOD BY MANUAL COUNT 72.7 40.0 - 80.0 04/20 Specimen Type: BLOOD Comment: Automated Differentia l Performed Ordering Provider: ALENA ROMERO Report Released Date/Time: Apr 20, 2024 03:18 PM Reporting Lab: [facility] [address] Performing Lab: [facility] [address] [place] [facility] CBC & DIFF LYMPHOCYTE S/100 LEUKOCYTES IN BLOOD BY MANUAL COUNT 16.0 15.0 - 45.0 04/20 Specimen Type: BLOOD Comment: Automated Differentia l Performed Ordering Provider: ALENA ROMERO Report Released Date/Time: Apr 20, 2024 03:18 PM Reporting Lab: [facility] [address] Performing Lab: [facility] [address] [place] [facility] CBC & DIFF MONOCYTES/ 100 LEUKOCYTES IN BLOOD BY AUTOMATED COUNT 8.9 2.0 - 12.0 04/20 Specimen Type: BLOOD Comment: Automated Differentia l Performed Ordering Provider: ALENA ROMERO Report Released Date/Time: Apr 20, 2024 03:18 PM Reporting Lab: [facility] [address] Performing Lab: [facility] [address] [place] [facility] CBC & DIFF EOSINOPHIL S/100 LEUKOCYTES IN BLOOD BY AUTOMATED COUNT 1.6 0.0 - 6.0 04/20 Specimen Type: BLOOD Comment: Automated Differentia l Performed Ordering Provider: ALENA ROMERO Report Released Date/Time: Apr 20, 2024 03:18 PM Reporting Lab: [facility] [address] Performing Lab: [facility] [address] [place] [facility] CBC & DIFF BASOPHILS/ 100 LEUKOCYTES IN BLOOD BY MANUAL COUNT 0.4 0.0 - 2.0 04/20 Specimen Type: BLOOD Comment: Automated Differentia l Performed Ordering Provider: ALENA ROMERO Report Released Date/Time: Apr 20, 2024 03:18 PM Reporting Lab: [facility] [address] Performing Lab: [facility] [address] [place] [facility] CBC & DIFF ERYTHROCYT E DISTRIBUTI ON WIDTH [RATIO] BY AUTOMATED COUNT 14.6 11.5 - 14.5 04/20 H Specimen Type: BLOOD Comment: Automated Differentia l Performed Ordering Provider: ALENA ROMERO Report Released Date/Time: Apr 20, 2024 03:18 PM Reporting Lab: [facility] [address] Performing Lab: [facility] [address] [place] [facility] CBC & DIFF LYMPHOCYTE S [#/VOLUME] IN BLOOD BY AUTOMATED COUNT 1.5 1.0 - 4.0 04/20 Specimen Type: BLOOD Comment: Automated Differentia l Performed Ordering Provider: ALENA ROMERO Report Released Date/Time: Apr 20, 2024 03:18 PM Reporting Lab: [facility] [phone] Performing Lab: [facility] [address] [place] [facility] CBC & DIFF MONOCYTES [#/VOLUME] IN BLOOD BY AUTOMATED COUNT 0.8 0.1 - 1.0 04/20 Specimen Type: BLOOD Comment: Automated Differentia l Performed Ordering Provider: ALENA ROMERO Report Released Date/Time: Apr 20, 2024 03:18 PM Reporting Lab: [facility] [address] Performing Lab: [facility] [address] [place] [facility] CBC & DIFF NEUTROPHIL S [#/VOLUME] IN BLOOD BY AUTOMATED COUNT 6.8 2.0 - 7.7 04/20 Specimen Type: BLOOD Comment: Automated Differentia l Performed Ordering Provider: ALENA ROMERO Report Released Date/Time: Apr 20, 2024 03:18 PM Reporting Lab: [facility] [address] Performing Lab: [facility] [address] [facility] CBC & DIFF EOSINOPHIL S [#/VOLUME] IN BLOOD BY AUTOMATED COUNT 0.2 0.0 - 0.5 04/20 Specimen Type: BLOOD Comment: Automated Differentia l Performed Ordering Provider: ALENA ROMERO Report Released Date/Time: Apr 20, 2024 03:18 PM Reporting Lab: [facility] [address] Performing Lab: [facility] [address] [facility] CBC & DIFF BASOPHILS [#/VOLUME] IN BLOOD BY AUTOMATED COUNT 0.0 0.0 - 0.2 04/20 Specimen Type: BLOOD Comment: Automated Differentia l Performed Ordering Provider: ALENA ROMERO Report Released Date/Time: Apr 20, 2024 03:18 PM Reporting Lab: [facility] [address] Performing Lab: [facility] [address] [facility] CBC & DIFF IG(META,MY GENNA,PRO) 0.4 04/20 Specimen Type: BLOOD Comment: Automated Differentia l Performed Ordering Provider: ALENA ROMERO Report Released Date/Time: Apr 20, 2024 03:18 PM Reporting Lab: [facility] [address] Performing Lab: [facility] [address] [facility] CBC & DIFF IMMATURE GRANULOCYT ES [PRESENCE] IN BLOOD BY AUTOMATED COUNT 0.0 0.0 - 0.1 04/20 Specimen Type: BLOOD Comment: Automated Differentia l Performed Ordering Provider: ALENA ROMERO Report Released Date/Time: Apr 20, 2024 03:18 PM Reporting Lab: [facility] [address] Performing Lab: [facility] [address] [facility] Vital Signs Combined list of inpatient and outpatient Vital Signs from Department of Defense and Veterans Affairs, ranging from 12 months to all on record, depending upon the facility. Vital Sign Value Date Comments Source SYSTOLIC BLOOD PRESSURE 137 04/20/2024 14:13:41 [facility] DIASTOLIC BLOOD PRESSURE 72 04/20/2024 14:13:41 [facility] PULSE OXIMETRY 92 04/20/2024 14:13:41 [place] [facility] WEIGHT 244 04/20/2024 14:13:41 [facility] BMI 33kg/m2 04/20/2024 14:13:41 [facility] PAIN 0 04/20/2024 14:13:41 [facility] HEIGHT 72 04/20/2024 14:13:41 [facility] TEMPERATURE 98.3 04/20/2024 14:13:41 [facility] PULSE 112 04/20/2024 14:13:41 [facility] RESPIRATION 20 04/20/2024 14:13:41 [facility] Encounters Combined list of: 1) Encounters from Department of [facility] Affairs facilities going back up to thelast 18 months. 2) Encounters from the Department of [facility] facilities going back up to 280 months. Location Location Details Encounter Type Encounter Number Reason For Visit Attending Provider ADM Date DC Date Status Disposition Source [place] [facility] Outpatient Encounter [id number] 03/04 [facility] [place] [facility] Outpatient Encounter [id number] 03/21 [facility] [place] [facility] Outpatient Encounter [id number] 04/19 [facility] [place] [facility] Outpatient Encounter [id number] 02/24 [facility] [place] [facility] Outpatient Encounter [id number] 03/27 [facility] [place] [facility] OFFICE O/P [place] 60 MIN [id number] Diagnos is: ICD-10- CM 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
KARLOS ROMERO UREEN B 04/20 [facility] [place] [facility] Outpatient Encounter [id number] 04/20 [place] [facility] [place] [facility] QNHP OL DIG ASSMT&MGMT 11-20 [id number] Diagnos is: ICD-10- CM J45.998 Other asthma< br/> KARLOS GUTIÉRREZY R 04/21 [place] [facility] MTMS BY PHARM ADDL 15 MIN [id number] Diagnos is: ICD-10- CM Z79.01 snf (curren t) use of anticoa gulants
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
TAJ SAWYER 05/18 [place] [facility] Outpatient Encounter [id number] 05[facility] [place] [facility] Outpatient Encounter [id number] 05/25 [facility] EVALUATION OF [place] [id number] Diagnos is: ICD-10- CM J45.998 Other asthma< br/> NICHOLAS BRICE 05/25 [place] [facility] MTMS BY PHARM EST 15 MIN [id number] Diagnos is: ICD-10- CM Z79.01 snf (curren t) use of anticoa gulants
LUZ ELENA GOLDBERG 05/26 [place] [facility] [place] [facility] MTMS BY PHARM ADDL 15 MIN [id number] Diagnos is: ICD-10- CM Z79.01 snf (curren t) use of anticoa gulants
Marshall ARCOS 05/28 [facility] Social History Combined list of available smoking, tobacco, and other social history from Department of Defense and Veterans Affairs facilities. Social History Type Response Date Comment [facility] e Tobacco smoking status VAIS DE-TOBACCO NEVER USED CIGARETTES 04/20/2024 [facility] History of tobacco use DE-TOBACCO NEVER USED OTHER TYPE 04/20/2024 [facility]
--- OUTSIDE RECORDS SUMMARY | 2024-06-01 08:59 | XMS_ITS | Encounter Summary ---
Author Name Department of Vetera Affairs ([place]) Organization [facility] ([facility] Address [address] [place] [id number] Care Team Providers Care Automotive Product Engineer Name Role Phone ERIC ROMERO Primary Care [...] MEDICARE ADVANTAGE [facility] ([facility]) Jun 03, 2019 [id number] [phone] ROB CASTREJON PATIENT MEDICA [facility] ([facility]) MEDICARE ADVANTAGE [facility] ([facility]) Jun 03, 2017 [id number] [phone] ROB CASTREJON PATIENT MEDICA [facility] ([facility] MEDICARE ADVANTAGE [facility] ([facility]) Jun 03, 2017 [id number] [phone] ROB CASTREJON PATIENT MEDICARE PART D ([facility]) MEDICARE (M) PART D Apr 03, 2009 PART D [id number] [phone] ROB CASTREJON PATIENT [facility] ([facility]) [facility] MEDIC ARE DHRUVA HUGH T Apr 03, 2009 [id number] [phone] ROB CASTREJON PATIENT Selected Encounter This section includes the information on record at NH for the Encounter. Date/Time Encounter Type Encounter Description Reason Pro vider Source May 25, 2024 11:02 AM Outpatient Encounter PULMONARY FUNCTION IHE Encounter Template Text not used by NH Lab Results: +/- 30 days of the encounter This section includes the Chemistry and Hematology Lab Results on record with NH for the patient. Radiology Reports and Pathology Reports are provided separately, in subsequent sections. Lab Results This section contains the Chemistry/Hematology Results that were resulted 30 days before or 30 daysafter the date of the Encounter. Date/Time Source Result Type Result - Unit Interpretation Reference Range Comment May 25, 2024 10:35 AM [facility] APIXABAN Specimen Type: PLASMA No comment entered. Ordering Provider: CHIO SAWYER Report Released Date/Time: May 07, 2024 11:29 AM Reporting Lab: [facility] [address] Performing Lab: [facility] [address] APIXABAN 25 ng/mL Social History: Smoking Status (Most current) and Tobacco Use (All prior to encounter date) This section includes the most current, and the historical, smoking and tobacco- related health factors from the NH facility where the Encounter took place. Current Smoking Status This section includes the most current smoking, or tobacco-related health factor, from the NH facility where the Encounter took place. Date/Time Current Smoking Status Comment Manohar ity Apr 20, 2024 02:00 PM NH-TOBACCO NEVER USED CIGARETTES [facility] Tobacco Use History This section includes a history of the smoking, or tobacco-related health factors, that were collected on or before the date of the Encounter. The data comes from the [place] facility where the Encounter took place. Date/Time Smoking Status/Tobacco Use Comment F acility Apr 20, 2024 02:00 PM VA-TOBACCO NEVER USED OTHER TYPE [facility] Encounter Notes: All associated encounter notes This section contains the clinical notes associated to the Encounter. Date/Time Encounter Note(s) Provider Source May 25, 2024 11:53 AM PULMONARY PROCEDUR E NOTE: LOCAL TITLE: CP PULMONARY FUNCTION TEST STANDARD TITLE: PULMONARY PROCEDURE NOTE DATE OF NOTE: MAY 25, 2024@11:53:46 ENTRY DATE: MAY 25, 2024@11:53:46 AUTHOR: CLINICAL,DEVICE PRO EXP COSIGNER: URGENCY: STATUS: COMPLETED PROCEDURE SUMMARY CODE: Machine Resulted DATE/TIME PERFORMED: MAY 25, 2024@11:12:1 DOCUMENT IN VISTA IMAGING SEE FULL REPORT IN VISTA IMAGING SIGNATURE NOT REQUIRED SEE SIGNATURE IN VISTA IMAGING (VYAIRE (PFT)) AUTO-INSTRUMENT DIAGNOSIS Procedure: MIN_PFT PFT Measurement ti11:16AM Spirometry Ref LLN Pre ZScore% Ref Post ZScore% RefChng (L%Chg FVC L 3.79 2.78 3.97 0.29 104.8 4.40 0.99 116.1 0.43 11.3 FEV 1 L 2.82 1.95 2.29 -1.01 81.3 2.76 -0.13 97.7 0.46 16.4 FEV1/FVC% 75 62 58 -2.07 63 -1.52 5 6.5 PEF L/s 7.88 5.89 7.40 -0.40 93.9 8.07 0.15 102.3 0.67 8.5 Z-Score Pre-Bronchodilator FVC L 0.29 FEV 1 L -1.01 FEV1/FVC % -2 Z-Score Post-Bronchodilator FVC L 0.99 FEV 1 L -0.13 FEV1/FVC % -2 Parameter FVC FEV1 FEV1/FVC TLC RV DLCOcSB 05/25/2024 3.97 2.29 58 Good effort, all tests meet ATS criteria for acceptability and reproducibility. Neb given with 2.5 mg/3ml Albuterol. No previous PFT's. Interpretation: Definite Obstruction: FEV1/FVC ratio < CI. Consistent with mild impairment, FEV1 Z Score > -1.65. Positive Bronchodilator Response: >/=10% increase in FVC or FEV1. Spirometry normal post bronchodilator. Signed By: Adams Crawford MD Administrative Closure: 05/25/2024 by: CLINICAL,DEVICE PROXY SERVICE CLINICAL,DEVICE PROXY SERVICE [facility]
--- OUTSIDE RECORDS SUMMARY | 2024-06-01 08:59 | XMS_ITS | Encounter Summary ---
Author Name Department of Veter[facility] ns Affairs ([place]) Organization [facility] of [facility] Affairs [place]) Address [address] [place] [address] Care Team Providers Care Physical Science Teacher Name Role Phone ERIC ROMERO Primary Care [...] to Policy [place] MEDICA (WNR) MEDICARE ADVANTAGE [facility] ([facility]) Jun 03, 2019 [id number] ROB CASTREJON PATIENT [facility] (WNR) MEDICARE [facility] ([facility]) Jun 03, 2017 [id number] [phone] ROB CASTREJON PATIENT [facility] (WNR) MEDICARE ADVANTAGE [facility] (WNR) Jun 03, 2017 [id number] [phone] ROB CASTREJON PATIENT MEDICARE PART D (WN) MEDICARE (M) PART D Apr 03, 2009 PART D [id number] ROB CASTREJON PATIENT [facility] ([facility]) [facility] MEDIC ARE DHRUVA HUGH T Apr 03, 2009 [id number] [phone] ROB SHEARER PATIENT Selected Encounter This section includes the information on record at ID for the Encounter. 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 Date/Time Primary/Secondary Diagnosis Diagnosis Name Provider Source May 07, 2024 10:27 AM PRIMARY [facility] (current) use of anticoagulants ROB SAWYER [facility] May 07, 2024 10:27 AM SECONDARY Encounter for therapeutic drug level monitoring ROB SAWYER [facility] May 07, 2024 10:27 AM SECONDARY Personal history of other venous thrombosis and embolism ROB SAWYER [facility] Plan of Treatment: Future Appointments (+ 6 months) and Future Tests (+/- 45 days) The Plan of Treatment section includes future care activities for the patient from [facility]. This section includes future appointments and future orders which are active, pending or scheduled. Future Appointments This section includes appointments that were scheduled to occur 6 months from the date of the Encounter, up to a maximum of 20 appointments. The data comes from all ID treatment facilities. Appointment Date/Time Appointment Type Appointme nt Facility Name May 25, 2024 11:00 AM AMBULATORY - NONE [facility] May 25, 2024 11:20 AM AMBULATORY - MEDICINE [facility] Lab Results: +/- 30 days of the encounter This section includes the Chemistry and Hematology Lab Results on record with ID for the patient. Radiology Reports and Pathology Reports are provided separately, in subsequent sections. Lab Results This section contains the Chemistry/Hematology Results that were resulted 30 days before or 30 daysafter the date of the Encounter. Date/Time Source Result Type Result - Unit Interpretation Reference Range Comment May 25, 2024 10:35 AM [facility] APIXABAN Specimen Type: PLASMA No comment entered. Ordering Provider: CINDY SAWYER Report Released Date/Time: May 07, 2024 11:29 AM Reporting Lab: [facility] [address] Performing Lab: [facility] [address] APIXABAN 25 ng/mL Apr 20, 2024 03:24 PM [facility] LUPUS INHIBITOR PANEL Specimen Type: PLASMA No comment entered. Ordering Provider: ERIC ROMERO Report Released Date/Time: Apr 20, 2024 03:18 PM Reporting Lab: [facility] [address] Performing Lab: [facility] [address] .dRVVT NORM. RATIO 0.96 {ratio} <1.15 .SILICA CLOT RATIO 1.12 {ratio} <1.18 LUPUS INHIBIT INTERP NEGATIVE -negative Apr 20, 2024 03:24 PM [facility] METHYLMALONIC ACID Specimen Type: SERUM No comment entered. Ordering Provider: ERIC ROMERO Report Released Date/Time: Apr 20, 2024 03:18 PM Reporting Lab: [facility] [address] Performing Lab: [facility] [address] METHYLMALONIC ACID 234 nmol/L 0-400 Apr 20, 2024 03:24 PM [facility] PROTEIN C (FUNC) Specimen Type: PLASMA No comment entered. Ordering Provider: ERIC ROMERO Report Released Date/Time: Apr 20, 2024 03:18 PM Reporting Lab: [facility] [address] Performing Lab: [facility] [address] PROTEIN C (FUNC) 94 [phone] Apr 20, 2024 03:24 PM [facility] PROTEIN S-FREE Specimen Type: PLASMA No comment entered. Ordering Provider: ERIC ROMERO Report Released Date/Time: Apr 20, 2024 03:18 PM Reporting Lab: [facility] [address] Performing Lab: [facility] [address] PROTEIN S-FREE 110 74-146 Apr 20, 2024 03:24 PM [facility] ANTI-CARDIOLIPIN WALKER PANEL Specimen Type: [...] additional information, please refer to .AGNES IGM:http://educa tion.[employer].com/faq/FA Q109 .AGNES IGM:(This link is being provided for informational/ .AGNES IGM:educational purposes only.) .AGNES IGM:Test Performed by [facility], .AGNES IGM:[employer] [place], .AGNES IGM:[address] [place], [place] .AGNES IGM:Lito Kruse M.D., Ph.D., Director of Laboratories .AGNES IGM: , CLIA [id number] Ordering Provider: ERIC ROMERO Report Released Date/Time: Apr 20, 2024 03:18 PM Reporting Lab: [facility] [address] Performing Lab: [facility] [address] [facility] CARDIOLIPIN,IG G WALKER 2.5 SEE BELOW CARDIOLIPIN,IG M WALKER 11.3 SEE BELOW Apr 20, 2024 03:24 PM [facility] B 12 Specimen Type: SERUM No comment entered. Ordering Provider: ERIC ROMERO Report Released Date/Time: Apr 20, 2024 03:18 PM Reporting Lab: [facility] [address] Performing Lab: [facility] [address] B 12 336 pg/mL 213-816 Apr 20, 2024 03:24 PM [facility] FOLATE Specimen Type: SERUM No comment entered. Ordering Provider: ERIC ROMERO Report Released Date/Time: Apr 20, 2024 03:18 PM Reporting Lab: [facility] [address] Performing Lab: [facility] [address] FOLATE 17.5 ng/mL >7.0 Apr 20, 2024 03:24 PM [facility] BASIC METABOLIC PANEL+MG Specimen Type: PLASMA No comment entered. Ordering Provider: ERIC ROMERO Report Released Date/Time: Apr 20, 2024 03:18 PM Reporting Lab: [facility] [address] Performing Lab: [facility] [address] CREATININE 1.2 mg/dL 0.7-1.2 UREA NITROGEN 18 mg/dL 8-26 GLUCOSE 97 mg/dL 70-100 SODIUM 142 mmol/L 136-145 POTASSIUM 4.1 mmol/L 3.5-5.1 CHLORIDE 111 mmol/L H 98-107 CO2 22 mmol/L 22-29 CALCIUM 9.4 mg/dL 8.4-10.2 MAGNESIUM 1.9 mg/dL 1.6-2.6 ANION GAP 9 mmol/L 5-15 .CREAT EGFR(CKD-EPI) 62 >60 Apr 20, 2024 03:24 PM [facility] CBC & DIFF Specimen Type: BLOOD Comment: Automated Differential Performed Ordering Provider: ERIC ROMERO Report Released Date/Time: Apr 20, 2024 03:18 PM Reporting Lab: [facility] [address] Performing Lab: [facility] [address] WBC 9.3 4.0-11.0 RBC 4.71 4.60-6.20 HGB [...] 0.0 0.0-0.1 Apr 20, 2024 03:24 PM [facility] HEMOGLOBIN A1C Specimen Type: BLOOD [...] Apr 20, 2024 03:18 PM Reporting Lab: [facility] [address] Performing Lab: [facility] [address] HEMOGLOBIN A1C 5.5 4.0-6.0 Apr 20, 2024 03:24 PM [facility] IRON GROUP Specimen Type: SERUM No comment entered. Ordering Provider: HEATHER,ERIC B Report Released Date/Time: Apr 20, 2024 03:18 PM Reporting Lab: [facility] [address] Performing Lab: [facility] [address] IRON 45 ug/dL L 65-175 TIBC,CALCULATE D 313 ug/dL 250-425 FERRITIN 115.0 ng/mL 21.8-274.7 IRON SATURATION 14 L 20-50 TRANSFERRIN 250 mg/dL 163-382 Apr 20, 2024 03:24 PM [facility] PT/INR(ANTICOAG) Specimen Type: PLASMA No comment entered. Ordering Provider: ERIC ROMERO Report Released Date/Time: Apr 20, 2024 03:18 PM Reporting Lab: [facility] [address] Performing Lab: [facility] [address] .INR 1.2 H 0.8-1.1 .PT 13.5 s H 9.4-12.5 Apr 20, 2024 03:24 PM [facility] LIVER FUNCTION TESTS Specimen Type: PLASMA No comment entered. Ordering Provider: ERIC ROMERO Report Released Date/Time: Apr 20, 2024 03:18 PM Reporting Lab: [facility] [address] Performing Lab: [facility] [address] BILIRUBIN, TOTAL 0.5 mg/dL 0.2-1.2 ALKALINE PHOSPHATASE 67 U/L 40-150 ALT/SGPT 27 U/L <44 AST/SGOT 28 U/L 11-34 GAMMA GTP 35 U/L <54 Social History: Smoking Status (Most current) and Tobacco Use (All prior to encounter date) This section includes the most current, and the historical, smoking and tobacco- related health factors from the ID facility where the Encounter took place. Current Smoking Status This section includes the most current smoking, or tobacco-related health factor, from the ID facility where the Encounter took place. Date/Time Current Smoking Status Comment Manohar sotomayor Apr 20, 2024 02:00 PM VA-TOBACCO NEVER USED CIGARETTES [facility] Tobacco Use History This section includes a history of the smoking, or tobacco-related health factors, that were collected on or before the date of the Encounter. The data comes from the ID facility where the Encounter took place. Date/Time Smoking Status/Tobacco Use Comment F acility Apr 20, 2024 02:00 PM VA-TOBACCO NEVER USED OTHER TYPE [facility] Encounter Notes: All associated encounter [...] a.fib indication - Thombophilia work up at [place] all negative - Prior major bleeds: GIB in while on warfarin - Prior anticoagulants: Warfarin , somthing he can't recall then a period of nothing, then apixaban 2021 - Start date: ~10/2021 CECY 05/2024 - Anticipated duration: Indefinite. Dose reduction per [place] VAS/Thombophilia based on pt pref and h/o GIB. - HASBLED extrapolated =2 (age, GIB/anemia) - Risk of recurrent VTE (Chest 2016): provoked after surgery: 3% in 5 years provoked due to non-surgical transient risk factor: 15%/5 years unprovoked: 30% in 5 years (continue unless high bleed risk) associated with cancer: 15% annual risk Notes: CECY from [place]; PCP is [facility] Care Coordination: Specialist care to continue at [place]. SUBJECTIVE/OBJECTIVE Obtained from chart review, J[facility]/outside records, [...] ASSESSMENT/PLAN - Appropriate for DOAC use. - [facility] use of anticoagulants added to problem list. [...] states that he had to talk his [place] VAS/thombophilia provider into agreeing to the lower [...] thus only taking 1.25mg q12h. Since obtaining [place] Rx for apixaban 5mg q12h he has been splitting these in half, thus taking apixaban 2.5mg q12h. He stated he discussed dose with his [place] vascular specialist who was in agreement with the prophylactic dose apixaban 2.5mg q12h. Also see 05/18/24 [place] [facility] Note. Counseled on increased clot [...] /tao/ ENID STEWART PHARMACIST Signed: 05/19/2024 15:38 05/26/2024 ADDENDUM STATUS: COMPLETED APIXA Eval: Target Range: Apixaban trough level 05/25/24 = 25 ng/ml APIXA Eval: Drug Dose Peak & Trough target ranges(plasma) Indication APIXA Eval: Apixaban 5 mg Q12H Peak (2-4hr post dose) 91-321 ng/ml APIXA Eval: Trough (predose) 41-230 ng/ml APIXA Eval: Apixaban 2.5 mg Q12H Peak (2-4hr post dose) 69-221 ng/ml APIXA Eval: Trough (predose) 34-162 ng/ml Given most recent trough level and possible reduced absorption s/p colectomy recommend pt convert to rivaroxaban or option to recheck apixaban xa level to confirm result and timing of trough level. Attention Dr. Forrest /tao/ DEO GOLDBERG Pharm.D., BCPS Anticoagulation Clinical Pharmacist Signed: 05/26/2024 15:49 BREE SAWYER [facility]
--- OUTSIDE RECORDS SUMMARY | 2024-06-01 08:59 | XMS_ITS | Encounter Summary ---
Author Name [facility] [place] Address [address] [place] [address] Care Team Providers Care Tellers Supervisor Name Role Phone ERIC ROMERO Primary Care [...] to Policy Mota MEDICA (WNR) MEDICARE ADVANTAGE [facility] ([facility]) Jun 03, 2019 [id number] ROB CASTREJON PATIENT MEDICA [facility] (WNR) MEDICARE [facility] ([facility]) Jun 03, 2017 [id number] [phone] ROB CASTREJON PATIENT MEDICA [facility] (WNR) MEDICARE ADVANTAGE [facility] (WNR) Jun 03, 2017 [id number] ROB CASTREJON PATIENT MEDICARE PART D (WN) MEDICARE (M) PART D Apr 03, 2009 PART D [id number] ROB CASTREJON PATIENT [facility] ([facility]) [facility] ORGANIZ MEDIC ARE REPLA HUGH T Apr 03, 2009 [id number] [phone] ROB SHEARER PATIENT Selected Encounter This section includes the information on record at [place] for the Encounter. 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 Date/Time Primary/Secondary Diagnosis Diagnosis Name Provider Source May 26, 2024 02:03 PM PRIMARY detention (current) use of anticoagulants DEO GOLDBERG [facility] May 26, 2024 02:03 PM SECONDARY Encounter for therapeutic drug level monitoring DEO GOLDBERG [facility] May 26, 2024 02:03 PM SECONDARY Personal history of pulmonary embolism DEO GOLDBERG [facility] Lab Results: +/- 30 days of the encounter This section includes the Chemistry and Hematology Lab Results on record with [place] for the patient. Radiology Reports and Pathology Reports are provided separately, in subsequent sections. Lab Results This section contains the Chemistry/Hematology Results that were resulted 30 days before or 30 daysafter the date of the Encounter. Date/Time Source Result Type Result - Unit Interpretation Reference Range Comment May 25, 2024 10:35 AM [facility] APIXABAN Specimen Type: PLASMA No comment entered. Ordering Provider: CHIO SAWYER Report Released Date/Time: May 07, 2024 11:29 AM Reporting Lab: [facility] [id number] Performing Lab: [facility] [id number] APIXABAN 25 ng/mL Social History: Smoking Status (Most current) and Tobacco Use (All prior to encounter date) This section includes the most current, and the historical, smoking and tobacco- related health factors from the [place] facility where the Encounter took place. Current Smoking Status This section includes the most current smoking, or tobacco-related health factor, from the [place] facility where the Encounter took place. Date/Time Current Smoking Status Comment Manohar sotomayor Apr 20, 2024 02:00 PM VA-TOBACCO NEVER USED CIGARETTES [facility] Tobacco Use History This section includes a history of the smoking, or tobacco-related health factors, that were collected on or before the date of the Encounter. The data comes from the [place] facility where the Encounter took place. Date/Time Smoking Status/Tobacco Use Comment F acility Apr 20, 2024 02:00 PM [place]-TOBACCO NEVER USED OTHER TYPE [facility] Encounter Notes: All associated encounter notes This section contains the clinical notes associated to the Encounter. Date/Time Encounter Note(s) Provider Source May 26, 2024 02:03 PM PHARMACY OUTPATIEN T MEDICATION MGT NOTE: LOCAL TITLE: PHARMACY ANTICOAGULATION CLINIC F/U STANDARD TITLE: PHARMACY OUTPATIENT MEDICATION MGT NOTE DATE OF NOTE: MAY 26, 2024@14:03 ENTRY DATE: MAY 26, 2024@14:03:44 AUTHOR: DEO GOLDBEGR COSIGNER: URGENCY: STATUS: COMPLETED DOAC DASHBOARD ALERT - Anticoagulant: Apixaban 5mg BID - Indication(s):Recurrent [...] a.fib indication - Thombophilia work up at [facility] all negative - Prior major bleeds: GIB in while on warfarin - Prior anticoagulants: Warfarin , somthing he can't recall then a period of nothing, then apixaban 2021 - Start date: ~10/2021 CECY 05/2024 - Anticipated duration: Indefinite. Dose reduction per [facility] VAS/Thombophilia based on pt pref and h/o GIB. - HASBLED extrapolated =2 (age, GIB/anemia) - Risk of recurrent VTE (Chest 2016): provoked after surgery: 3% in 5 years provoked due to non-surgical transient risk factor: 15%/5 years unprovoked: 30% in 5 years (continue unless high bleed risk) associated with cancer: 15% annual risk Notes: CECY from [facility]; PCP is Kalani Care Coordination: Specialist care to continue at [facility]. SUBJECTIVE/OBJECTIVE: Information obtained from patient and chart . Labs ==== Apixaban Xa 05/25/24 - 25 ng/ml APIXA Eval: Drug Dose Peak & Trough target ranges(plasma) Indication APIXA Eval: Apixaban 5 mg Q12H Peak (2-4hr post dose) 91-321 ng/ml APIXA Eval: Trough (predose) 41-230 ng/ml APIXA Eval: Apixaban 2.5 mg Q12H Peak (2-4hr post dose) 69-221 ng/ml APIXA Eval: Trough (predose) 34-162 ng/ml ASSESSMENT/PLAN: Based on above information, Pt was not taking dose as instructed. Pt also took his prior to > 13 hours but he was taking a few days of a 5mg q12h. Reviewed option to convert to rivaroxaban. Pt reports at this time he would like to discuss his options with vascular and contact clinic in ~ 7-10 days given the holiday. Per previous addendum pt was taking apixaban 2.5mg q12h per instructions from his vascular provider at [facility]. Per most recent triage not addendum on 05/07/note: Alerted pt called to request 2.5mg apixaban tablets. Connected with pt by phone. He stated he previously had been splitting the 2.5mg tablets in half (local Rx) d/t cost, thus only taking 1.25mg q12h. Since obtaining [place] Rx for apixaban 5mg q12h he has been splitting these in half, thus taking apixaban 2.5mg q12h. He stated he discussed dose with his [facility] vascular specialist who was in agreement with the prophylactic dose apixaban 2.5mg q12h. Also see 05/18/24 [facility] Med Note. Counseled on increased clot [...] further review/discuss. Will not yet renew/update Rx. 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 - Pt aware of risks of embolic event and prefers to wait and follow up with anticoag clinic within 7-10 days. - Continue anticoagulation at current dose. - Monitor dashboard for labs, drug interactions, and compliance. - Dashboard flags reviewed/cleared. - Lab monitoring frequency defined by dashboard or as clinically indicated. Time Spent: 15 min /tao/ DEO GOLDBERG Pharm.D., [facility] Anticoagulation Clinical Pharmacist Signed: 05/26/2024 14:32 DEO GOLDBERG [facility]
== END 2024-12-29 23:59 | disposition home or self-care (01) ==
PROVIDERS: PCP Family Medicine; Visit Provider Family Medicine
DX: R29.898 Other symptoms and signs involving the musculoskeletal system (principal); Z51.89 Encounter for other specified aftercare
CPT/HCPCS: 97110; 97112; 97161; 97530

== ENCOUNTER 2025-03-23 15:28 | Inpatient (IN) | payer MEDICARE, OTHER, SELFPAY ==
--- OUTSIDE RECORDS SUMMARY | 2025-02-08 13:00 | XMS_ITS | Encounter Summary ---
Author Organization [facility] Address [address] [place] [address] Care Team Providers Care Financial Analyst Name Role Phone Elsewhere, Pcp Primary Care Provider Unavailabl e Reason for Visit * Reason Onset Date Comments Pre-visit Intake 02/08/2025 Encounter Details Date Type Department Care Team (Latest Contact Info) Description 02/08/2025 1:00 PM CDT Clinical Communication Virtual Review in [place], [place] [address] [place] [phone] Pre-visit Intake Social History Tobacco Use Types Packs/Day Years Used Date Smoking Tobacco: Never Passive Smoke Exposure: Never Smokeless Tobacco: Never Tobacco Cessation:Counseling Given: Not Answered Comments:Not Alcohol Use Standard Drinks/Week Comments Yes 1 (1 standard drink = 0.6 oz pur e alcohol) 1 Glass of wine twice a month. [facility] Utilities Answer Date Recorded In the past 12 months has [facility] [employer], gas, oil, or water [employer] threatened to shut off services in your home? No 08/24/2024 Humiliation, Afraid, Rape, and Kick questionnair e Answer Date Recorded Within the last year, have y ou been afraid of your partner or ex-partner? No 07/13/2022 Within the last year, have y ou been humiliated or emotionally abused in other ways by your partner or ex-partner? No Within the last year, have y ou been kicked, hit, slapped, or otherwise physically hurt by your partner or ex-partner? No 07/13/2022 Within the last year, have y ou been raped or forced to have any kind of sexual activity by your partner or ex-partner? No 07/13/2022 Hunger Vital Sign Answer Date Recorded Within the past 12 months, y ou worried that your food would run out before you got the money to buy more. Never true 08/25/19 25 Within the past 12 months, t he food you bought just didn't last and you didn't have money to get more. Never true 08/24/2024 PRAPARE - Transportation Answer Date Re corded In the past 12 months, has l ack of transportation kept you from medical appointments or from getting medications? No 08/02 In the past 12 months, has l ack of transportation kept you from meetings, work, or from getting things needed for daily living? No 08/24/2024 Housing Stability Answer Date Recorded What is your living situation today? I have a [facility] place to live 08/24/2024 Education Answer Date Recorded What is the highest level of school you have completed or the highest degree you have received? Master's degree (e.g., MA, MS, Pamela, MEd, TECHNICAL PROJECT MANAGER, LAUREN) 01/30/2019 Sex and Gender Information Value Date Recorded Sex Assigned at Male 01/29/2018 9:39 PM CDT Legal Sex Male 5:18 AM UNDERWRITING OPERATIONS MANAGER Gender Identity Male 01/29/2018 9:39 PM CDT Sexual Orientation Straight 01/29/2018 9: 39 PM CDT documented as of this encounter Plan of Treatment Upcoming Encounters Date Type Department Care Team (Latest Contact Info) Description 05/06/2025 9:00 AM UNDERWRITING OPERATIONS MANAGER Office Visit Department of Orthopedic Surgery in [place], [place] [address] [place] [phone] Ronan Lew, OJS, P.A.-C. [address] [place] [phone] 05/17/2025 9:45 AM UNDERWRITING OPERATIONS MANAGER Clinical Communication Virtual Review in [place], [place] [address] [place] [address] 05/18/2025 11:15 AM UNDERWRITING OPERATIONS MANAGER Office Visit Department of Vascular Medicine in [place], [place] [address] [place] [phone] John Mojica M.D. 06/14/2025 9:45 AM UNDERWRITING OPERATIONS MANAGER Office Visit Department of Dermatology in [place], [place] [address] [place] [phone] Mar Powell M.D. [address] [place] [address] documented as of this encounter Visit Diagnoses Not on filedocumented in this encounter Care Teams Financial Analyst Relationship Specialty Start Date End Date Elsewhere, Pcp PCP - General Family Medicine 11/07/20 documented as of this encounter
--- OUTSIDE RECORDS SUMMARY | 2025-02-09 10:15 | XMS_ITS | Encounter Summary ---
Author Organization [facility] Address [address] [place] [address] Care Team Providers Care Wall Taper Name Role Phone Elsewhere, Pcp Primary Care Provider Unavailabl e Encounter Details Date Type Department Care Team (Late st Contact Info) Description 02/09/2025 10:15 AM CDT Ancillary Procedure Department of Dermatology Social History Tobacco Use Types Packs/Day Years Used Date Smoking Tobacco: Never Passive Smoke Exposure: Never Smokeless Tobacco: Never Comments:Not Alcohol Use Standard Drinks/Week Comments Yes 1 (1 standard drink = 0.6 oz pur e alcohol) 1 Glass of wine twice a month. [facility] Utilities Answer Date Recorded In the past 12 months has e electric, gas, oil, or water company threatened to shut off services in your [...] the money to buy more. Never true 03/24/20 25 Within the past 12 months, t [...] your living situation today? I have a [facility] place to live 08/24/2024 Education Answer Date Recorded What is the highest level of school you have completed or the highest degree you have received? Master's degree (e.g., MA, MS, Pamela, MEd, ROOM MANAGER, LAUREN) 01/30/2019 Sex and Gender Information Value Date Recorded Sex Assigned at Male 01/29/2018 9:39 PM CDT Legal Sex Male 5:18 AM LAUNDRY TECHNICIAN Gender Identity Male 01/29/2018 9:39 PM CDT Sexual Orientation Straight 01/29/2018 9: 39 PM CDT documented as of this encounter Plan of Treatment Upcoming Encounters Date Type Department Care Team (Latest Contact Info) Description 05/06/2025 9:00 AM LAUNDRY TECHNICIAN Office Visit Department of Orthopedic Surgery in [place], [place] [address] [place] [phone] Ronan Lew, MPAS, P.A.-C. [address] [place] [phone] 05/17/2025 9:45 AM LAUNDRY TECHNICIAN Clinical Communication Virtual Review in [place], [place] [address] [place] [address] 05/18/2025 11:15 AM LAUNDRY TECHNICIAN Office Visit Department of Vascular Medicine in [place], [place] [address] [place] [phone] John Mojica M.D. 06/14/2025 9:45 AM LAUNDRY TECHNICIAN Office Visit Department of Dermatology in [address] [place] [phone] Mar Powell M.D. [address] [place] [phone] documented as of this encounter Procedures Procedure Name Priority Date/Time Associated Diagnosis Comments DERMATOLOGY IMAGE EXAM Routine 02/09/2025 10:15 AM CDT documented in this encounter Results * ear, left upper antihelix 121-Dermatology Image Exam (02/09/2025 10:15 AM CDT) 02/09/2025 10:1 4 AM CDT Narrative IIM[facility] - 02/09/2025 10:16 AM CDT This order has been created and auto-finalized to support the import of images acquired without order. The clinical documentation to support these images can be found on the encounter that produced images. us Provider Not In System IMG NON RAD IMAGING PROCE DURES Final Result [facility] NA documented in this encounter Visit Diagnoses Not on filedocumented in this encounter Care Teams Wall Taper Relationship Specialty Start Date End Date Elsewhere, Pcp PCP - General Family Medicine 11/07/20 documented as of this encounter
--- OUTSIDE RECORDS SUMMARY | 2025-02-09 10:20 | XMS_ITS | Encounter Summary ---
Author Organization [facility] Address [address] [place] [address] Care Team Providers Care Flute Teacher Name Role Phone Elsewhere, Pcp Primary Care Provider Unavailabl e Reason for Referral * Outpatient (Routine) - Authorized Specialty Diagnoses / Procedures Referred By Nicol portillo Referred To Contact Dermatology Diagnoses Dermatoheliosis Mar Powell M.D. [address] [place] [address] Phone: tel: fax: [facility] Referral ID Status Reason Start Date Expiration Date V isits Requested Visits Authorized [id number] Authorized 02/09/2025 08/11/2026 1 1 Reason for Visit * Appointment Request (Routine) - Closed Specialty Diagnoses / Procedures Referred By Nicol portillo Referred To Contact Dermatology Diagnoses Lesion Ear Referral ID Status Reason Start Date Expiration Date Visits Re quested Visits Authorized [id number] Closed 01/18/2025 04/20/2026 1 1 Encounter Details Date Type Department Care Team (Latest Contact Info) Description 02/09/2025 10:20 AM CDT Comprehensive Visit Department of Dermatology in [address] [place] [phone] Mar Powell M.D. [address] [place] [phone] Dermatoheliosis (Primary Dx); Tumor Ear Skin Uncertain Behavior; Keratosis Seborrheic Inflamed Social History Tobacco Use Types Packs/Day Years Used Date Smoking Tobacco: Never Passive Smoke Exposure: Never Smokeless Tobacco: Never Comments:Not Alcohol Use Standard Drinks/Week Comments Yes 1 (1 standard drink = 0.6 oz pur e alcohol) 1 Glass of wine twice a month. [facility] Utilities Answer Date Recorded In the past [...] your living situation today? I have a [facility] place to live 08/24/2024 Education Answer Date Recorded What is the highest level of school you have completed or the highest degree you have received? Master's degree (e.g., MA, MS, Pamela, MEd, INTEGRATION SOFTWARE ENGINEER, LAUREN) 01/30/2019 Sex and Gender Information Value Date Recorded Sex Assigned at Male 01/29/2018 9:39 PM CDT Legal Sex Male 5:18 AM SUPERVISOR [employer] Gender Identity Male 01/29/2018 9:39 PM CDT Sexual Orientation Straight 01/29/2018 9: 39 PM CDT documented as of this encounter Consult Notes * Mar Powell M.D. - 02/09/2025 10:20 AM CDT SUBJECTIVE CHIEF COMPLAINT/REASON FOR VISIT Spot check. HISTORY OF PRESENT ILLNESS Kamran Calvin is a pleasant 79 y.o. male who is seen in consultation at the request of No ref. provider found for skin cancer screening. 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 Today, he reports a lesion on his L ear. It is tender. He also has a smaller spot on his L eyelid. MEDICAL HISTORY Multiple NMSC's, most recently SCCIS of L neck and two BCC's of the scalp and R ala s/p treatment in August 2024 OBJECTIVE PHYSICAL EXAMINATION General: Awake, alert, in no acute distress, and with appropriate affect. Skin: An exam of the face and ears was conducted and revealed the following: Hyperkeratotic erythematous papule of the L antihelix Stuck on pedunculated warty brown papule of the L eyelid with surrounding inflammation Well healed cicatrix of the nose There are no other skin lesions of concern in the areas examined. ASSESSMENT / PLAN #1 Neoplasm of uncertain behavior - ddx includes SCC vs other - Mohs here if pos. Pt prefers phone call with results. OK to leave message. CONSENT Discussed the risks, benefits, alternatives, and the necessity of other members of the healthcare team participating in the procedure. All questions answered and consent given. UNIVERSAL PROTOCOL Procedural pause conducted to verify: correct patient identity, procedure to be performed, and as applicable, correct side and site, correct patient position, and availability of implants, special equipment, or special requirements. PROCEDURE INFORMATION Shave biopsy. We explained the potential diagnosis and recommended that we obtain a biopsy. The risks and benefits of the procedure were discussed, and the patient consented to these procedures. Using 1% lidocainewith epinephrine for local anesthesia, a shave biopsy was obtained from the L ear (antihelix). Biopsy submitted to Dermatopathology for H&E. Special stains will be performed as indicated. The bleeding was well controlled with application of aluminum chloride. Dressing was applied, and wound care instructions were explained. Biopsy results and any further recommendations will be communicated to the patient by letter. Patient given pamphlet [id number]. #2 Inflamed Seborrheic Keratosis x 1 - the benign nature of the lesion was discussed, but as area is traumatized and itchy, treatment isreasonable Procedure note: After explaining the procedure, discussing the associated risks, benefits, and alternatives, and obtaining verbal informed consent, the lesion(s) underwent treatment with liquid nitrogen cryotherapy in the standard fashion. Wound care was discussed. Patient offered educational materials. 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 [address] [place] [phone] 05/17/2025 9:45 AM SUPERVISOR BAKERY SANITATION Clinical Communication Virtual Review in [place], [place] [address] [place] [phone] 05/18/2025 11:15 AM SUPERVISOR BAKERY SANITATION Office Visit Department of Vascular Medicine in [place], [place] [address] [place] [phone] John Mojica M.D. 06/14/2025 9:45 AM SUPERVISOR BAKERY SANITATION Office Visit Department of Dermatology in [address] [phone] Mar Powell M.D. [address] [place] [phone] Scheduled Referrals Name Type Priority Associated Diagnoses Order Schedule Dermatology office visit (clinic) Outpatient Referral Routine Dermatoheliosis Expected: 05/11/2025 (Approximate), Expires: 05/11/2026 documented as of this encounter Procedures Procedure Name Priority Date/Time Associated Diagnosis Comments DERMATOPATHOLOGY Routine 02/09/2025 10:1 4 AM CDT Tumor Ear Skin Uncertain Behavior documented in this encounter Results * Dermatopathology (02/09/2025 10:14 AM CDT) 02/11/2025 2:18 PM CDT PDRM Report electronically signed by Robert Cervantes M.D. 02/11/2025 2:18 PM CDT PDRM Gross Description Received in formalin labeled with the patient's name, medical record number, and left ear is a 0.7 x 0.6 x 0.1 cm pale-abdi skin shavebiopsy. Encompassing nearly the entire skin surface is a 0.6 x 0.6 x 0.2 cm pale-abdi, firm, keratotic lesion with irregular borders. Thespecimen is bisected and submitted entirely in cassette A1. Grossed by HANNY. 02/11/2025 2:18 PM CDT PDRM Interpretation FINAL DIAGNOSIS A. 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 Digital imaging was used in the diagnostic assessment of this case. 02/11/2025 2:18 PM CDT PDRM Skin (Left Ear) 02/09/2025 1 0:14 AM CDT us Mar Powell M.D. LAB PATH DERM ORDERABLES Final Result [facility] [address] [place] [address], [facility] PDRM [address] [place] [address] documented in this encounter Visit Diagnoses Diagnosis Dermatoheliosis- Primary Tumor Ear Skin Uncertain Behavior Keratosis Seborrheic Inflamed documented in this encounter Care Teams Flute Teacher Relationship Specialty Start Date End Date Elsewhere, Pcp PCP - General Family Medicine 11/07/20 documented as of this encounter
--- OUTSIDE RECORDS SUMMARY | 2025-02-24 | XMS_ITS | Encounter Summary ---
Author Organization [facility] Address [address] [place] [address] Care Team Providers Care Farmworker Grain Name Role Phone Elsewhere, Pcp Primary Care Provider Unavailabl e Encounter Details Date Type Department Care Team (Late st Contact Info) Description 02/24/2025 Ancillary Procedure Department of Dermatology Social History Tobacco Use Types Packs/Day Years Used Date Smoking Tobacco: Never Passive Smoke Exposure: Never Smokeless Tobacco: Never Comments:Not Alcohol Use Standard Drinks/Week Comments Yes 1 (1 standard drink = 0.6 oz pur e alcohol) 1 Glass of wine twice a month. [facility] Utilities Answer Date Recorded In the [...] your living situation today? [facility] a [facility] 08/24/2024 Education Answer Date Recorded What is the highest level of school you have completed or the highest degree you have received? Master's degree (e.g., MA, MS, Pamela, MEd, BAGGAGE PORTER, LAUREN) 01/30/2019 Sex and Gender Information Value Date Recorded Sex Assigned at Male 01/29/2018 9:39 PM CDT Legal Sex Male 5:18 AM GRADE FOREMAN Gender Identity Male 01/29/2018 9:39 PM CDT Sexual Orientation Straight 01/29/2018 9: 39 PM CDT documented as of this encounter Plan of Treatment Upcoming Encounters Date Type Department Care Team (Latest Contact Info) Description 05/06/2025 9:00 AM GRADE FOREMAN Office Visit Department of Orthopedic Surgery in [place], [place] [address] [place] [phone] Ronan Lew, MPAS, P.A.-C. [address] [place] [phone] 05/17/2025 9:45 AM GRADE FOREMAN Clinical Communication Virtual Review in [place], [place] 200 [place] [address] 05/18/2025 11:15 AM GRADE FOREMAN Office Visit Department of Vascular Medicine in [place], [place] [address] [place] [phone] John Mojica M.D. 06/14/2025 9:45 AM GRADE FOREMAN Office Visit Department of Dermatology in [place], [place] [address] [place] [address] [place] [phone] Mar Powell M.D. [address] [place] [phone] documented as of this encounter Procedures Procedure Name Priority Date/Time Associated Diagnosis Comments DERMATOLOGY IMAGE EXAM Routine 02/24/2025 12:00 AM CDT documented in this encounter Results * ear, left upper antihelix 121 Mohs micrographic surgery-Dermatology Image Exam (02/24/2025 12:00 AMCDT) Narrative [facility]IMS - 02/24/2025 2:36 PM CDT This order has been created and auto-finalized to support the import of images acquired without order. The clinical documentation to support these images can be found on the encounter that produced images. us Provider Not In System IMG NON RAD IMAGING PROCE DURES Final Result [facility] NA documented in this encounter Visit Diagnoses Not on filedocumented in this encounter Care Teams Farmworker Grain Relationship Specialty Start Date End Date Elsewhere, Pcp PCP - General Family Medicine 11/07/20 documented as of this encounter
--- OUTSIDE RECORDS SUMMARY | 2025-02-24 11:30 | XMS_ITS | Encounter Summary ---
Author Organization [facility] Address [address] [place] [phone] Care Team Providers Care Graining Machine Operator Name Role Phone Elsewhere, Pcp Primary Care Provider Unavailabl e Reason for Visit * Outpatient (Routine) - Closed Specialty Diagnoses / Procedures Referred By Contharry t Referred To Contact Dermatology Diagnoses Malignant Neoplasm Of Skin Squamous Cell Carcinoma Procedures SELVIN MOHS 1-4 sites Mar Powell M.D. [address] [place] [phone] Phone: tel: fax: [facility] Referral ID Status Reason Start Date Expiration Date Visits Re quested Visits Authorized [id number] Closed 02/12/2025 05/15/2026 1 1 Encounter Details Date Type Department Care Team (Latest Contact Info) Description 02/24/2025 11:30 AM CDT Procedure visit Department of Dermatology in [place], [place] [address] [place] [phone] Harmony De León M.D. [address] [place] [phone] Malignant Neoplasm Of Skin Squamous Cell Carcinoma Discharge Disposition: Home or Self Care Social History Tobacco Use Types Packs/Day Years Used Date Smoking Tobacco: Never Passive Smoke Exposure: Never Smokeless Tobacco: Never Comments:Not Alcohol Use Standard Drinks/Week Comments Yes 1 (1 standard drink = 0.6 oz pur e alcohol) 1 Glass of wine twice a month. [facility] Utilities Answer Date Recorded In the past 12 months has [employer], [employer], or [employer] threatened to shut off services in your [...] your living situation today? I have a [facility] place to live 08/24/2024 Education Answer Date Recorded What is the highest level of school you have completed or the highest degree you have received? Master's degree (e.g., MA, MS, Pamela, MEd, FURNACE ERECTOR, LAUREN) 01/30/2019 Sex and Gender Information Value Date Recorded Sex Assigned at Male 01/29/2018 9:39 PM CDT Legal Sex Male 5:18 AM FAMILY LAWYER Gender Identity Male 01/29/2018 9:39 PM CDT Sexual Orientation Straight 01/29/2018 9: 39 PM CDT documented as of this encounter Last Filed Vital Signs Vital Sign Reading Time Taken Comments Blood Pressure 137/80 02/24/2025 11:28 AM CDT Pulse 85 02/24/2025 11:28 AM CDT Temperature - - Respiratory Rate - - Oxygen Saturation - - Inhaled Oxygen Concentration - - Weight - - Height - - Body Mass Index - - documented in this encounter Procedure Notes * Jhonny Aquino M.D., M.S. - 02/24/2025 11:30 AM CDT PREOP INDICATION: REMOVAL. Date of Surgery: 02/24/2025 Surgeon: Harmony De León M.D. Carpenter Helper: Jhonny Aquino M.D., M.S. Location: [facility]: Floor:16 Room:[facility] Visit Type: Outpatient PostOp Diagnosis: Squamous cell carcinoma, well differentiated Anatomic Location: Left ear Preoperative size: 0.4x0.[address] [facility] number: [id number] Indication(s) for Mohs Micrographic Surgery: anatomic location where tissue conservation is critical Procedure(s): Mohs micrographic surgery with second-intention wound healing. Procedural pause conducted to verify: correct patient identity, procedure to be performed and as applicable, correct side and site, correct patient position, and availability of implants, special equipment or special requirements. INFORMED CONSENT Discussed the risks, benefits, alternatives, and the necessity of other members of the healthcare team participating in the procedure. All questions answered and consent given. PATIENT EDUCATION Ready to learn, no apparent learning barriers were identified; learning preferences include listening. Explained diagnosis and treatment plan; patient expressed understanding of the content. Preoperative medications: None The anesthesia used was lidocaine 9mg/ml (0.9%) buffered with sodium bicarbonate 0.1 mEq/mL (0.01%), followed by 1% lidocaine and 0.25% bupivacaine with 1:200,000 epinephrine. The skin was prepped in a sterile fashion with Povidone-iodine. Inflammation that cleared was noted on deep sections of stage 1; true marginal sections were free of tumor Histologic tumor-free margins were obtained in 1 stages (1 blocks) by standard Mohs micrographic techniques with the Mohs surgeon performing both the surgery and pathology. The final defect depth was down to level of: cartilage. Postoperative size: 0.9x0.9 cm. After discussing the options for wound management, it was decided to allow the wound to heal by second intention and assess the cosmetic and functional outcome at a later date. Estimated blood loss: Minimal. Complications: None. Wound care: Routine. Postoperative medications: Over the counter analgesics Cosigned by Harmony De León M.D. at 02/24/2025 1:53 PM CDT documented in this encounter Consult Notes * Jhonny Aquino M.D., M.S. - 02/24/2025 11:30 AM CDT DERMATOLOGIC SURGERY CONSULTATION NOTE PATIENT NAME: Kamran Calvin DATE OF : 1945, 79 y.o. DATE: 02/24/2025 STAFF PHYSICIAN: Dr. Pita De León M.D. SUBJECTIVE CHIEF COMPLAINT/REASON FOR VISIT Squamous cell carcinoma, well differentiated, Left ear HISTORY OF PRESENT ILLNESS Kamran Calvin is a 79 y.o. male presents today in referral from Mar Powell M.D. for the below biopsy proven tumor(s), see pathology report. Pathology result: FINAL DIAGNOSIS A. 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 [] [x] Organ Transplant: [] [x] Bleeding or healing problems [] [x] Blood Thinners Aspirin [] [x] Coumadin/Warfarin [] [x] Plavix [] [x] Others [x] [] Hypertension [x] [] Implants: [] [x] Habits Tobacco [] [x] Alcohol [x] [] The dermatologic surgery preoperative sheet was reviewed today in detail. CURRENT MEDICATIONS The medications for today's visit were reviewed OBJECTIVE VITALS SIGNS There were no vitals taken for this visit. PHYSICAL EXAMINATION General: well appearing male in no acute distress Skin: Focused skin examination was performed today of the surgical site(s) revealing erythematous scar, consistent with prior biopsy site(s), on the left ear. No preauricular, posterior auricular, submental, occipital, cervical, or supraclavicular lymphadenopathy. DIAGNOSTICS REVIEW OF MEDICAL CHART: A review of the patient's medical chart and any referral form(s) was performed. I personally reviewed the patient's histopathology from the biopsy slides, and my impression is listed below in the assessment and plan. ASSESSMENT / PLAN #1 Biopsy-proven Squamous cell carcinoma, well differentiated, Left ear The patient is here today for definitive treatment of the above tumor. We reviewed the diagnosis(es)/indication(s) and treatment options. Based on appropriate use criteria, decision was made to treatwith Mohs micrographic surgery given anatomic location where tissue conservation is critical. We rev iewed associated risks, benefits, and alternatives. Risks included bleeding, infection, scar, recurrence, large wound, dehiscence, and sensation loss. Natural history of scar and expectations reviewed. After discussion, the patient consented to proceed. All questions were answered. After curettage of the clinically apparent tumor, the tumor deep and peripheral margins were clear after 1 stages of Mohs micrographic excision. The final wound defect was repaired by secondary intention. Please refer to the operative note and associated Mohs map for complete details. Follow up on yearly basis for skin cancer screening, sooner if needed for wound related issues. Jhonny Aquino M.D., M.S. Cosigned by Harmony De León M.D. at 02/24/2025 1:53 PM CDT Associated attestation - Harmony De León M.D. - 02/24/2025 1:53 PM CDT I saw and evaluated the patient, participating in the sandoval elements of the service. I discussed the findings, assessment and plan with the resident/fellow and agree with resident/fellow???s findings and plan as documented in the resident/fellow's note. I was immediately available for the entirety ofthe procedure(s) and present for the sandoval and critical portions. Harmony De León MD documented in this encounter Plan of Treatment Upcoming Encounters Date Type Department Care Team (Latest Contact Info) Description 05/06/2025 9:00 AM FAMILY LAWYER Office Visit Department of Orthopedic Surgery in [place], [place] [address] [place] [phone] Ronan Lew, MPAS, P.A.-C. [address] [place] [phone] 05/17/2025 9:45 AM FAMILY LAWYER Clinical Communication Virtual Review in [place], [place] 200 [place] [phone] 05/18/2025 11:15 AM FAMILY LAWYER Office Visit Department of Vascular Medicine in [place], [place] [address] [place] [phone] John Mojica M.D. 06/14/2025 9:45 AM FAMILY LAWYER Office Visit Department of Dermatology in [place], [place] [address] [facility] [address] [place] [phone] Mar Powell M.D. [address] [place] [phone] documented as of this encounter Visit Diagnoses Diagnosis Malignant Neoplasm Of Skin Squamous Cell Carcinoma documented in this encounter Care Teams Graining Machine Operator Relationship Specialty Start Date End Date Elsewhere, Pcp PCP - General Family Medicine 11/07/20 documented as of this encounter
--- OUTSIDE RECORDS SUMMARY | 2025-03-04 09:30 | XMS_ITS | Encounter Summary ---
Author Organization [facility] Address [address] [place] [address] Care Team Providers Care Cigarette Inspector Name Role Phone Elsewhere, Pcp Primary Care Provider Unavailabl e Reason for Referral * Outpatient (Routine) - Authorized Specialty Diagnoses / Procedures Referred By Contac t Referred To Contact Orthopedic Surgery Diagnoses Dystrophic Toenail Callus Custodial (Current) Anticoagulant Treatment Insufficiency Venous Peripheral Ronan Lew MPAS P.A.-CLiliana [address] [place] [address] Phone: tel: fax: [facility] Referral ID Status Reason Start Date Expiration Date V isits Requested Visits Authorized [id number] Authorized 03/04/2025 09/03/2026 1 1 Reason for Visit * Outpatient (Routine) - Closed Specialty Diagnoses / Procedures Referred By Contac t Referred To Contact Orthopedic Surgery Diagnoses Dystrophic Toenail Callus Pain Foot Right Pmo Business Analyst (Current) Anticoagulant Treatment Ronan Lew MPAS, P.A.-C. [address] [place] [address] Phone: tel: fax: [facility] Referral ID Status Reason Start Date Expiration Date Visits Re quested Visits Authorized [id number] Closed 12/29/2024 06/30/2026 1 1 Encounter Details Date Type Department Care Team (Latest Contact Info) Description 03/04/2025 9:30 AM CDT Office Visit Department of Orthopedic Surgery in [place], [place] [address] [place] [phone] Ronan Lew, BRUCE, P.A.-C. [address] [place] [address] Dystrophic Toenail (Primary Dx); Callus; Pmo Business Analyst (Current) Anticoagulant Treatment; Insufficiency Venous Peripheral Social History Tobacco Use Types Packs/Day Years Used Date Smoking Tobacco: Never Passive Smoke Exposure: Never Smokeless Tobacco: Never Comments:Not Alcohol Use Standard Drinks/Week Comments Yes 1 (1 standard drink = 0.6 oz pur e alcohol) 1 Glass of wine twice a month. [facility] [employer] Answer Date Recorded In the past 12 months has e [employer], gas, oil, or water [employer] threatened to shut off services in your [...] your living situation today? I have a [facility] place to live 08/24/2024 Education Answer Date Recorded What is the highest level of school you have completed or the highest degree you have received? Master's degree (e.g., MA, MS, Pamela, MEd, POEM WRITER, LAUREN) 01/30/2019 Sex and Gender Information Value Date Recorded Sex Assigned at Male 01/29/2018 9:39 PM CDT Legal Sex Male 5:18 AM CONVEYOR TENDER CONCRETE MIXING PLANT Gender Identity Male 01/29/2018 9:39 PM CDT Sexual Orientation Straight 01/29/2018 9: 39 PM CDT documented as of this encounter Progress Notes * Ronan Lew, BRUCE, P.A.-C. - 03/04/2025 9:30 AM CDT SUBJECTIVE CHIEF COMPLAINT / REASON FOR VISIT Continued care of dystrophic toenails/callus care HISTORY OF PRESENT ILLNESS Mr. Calvin is a 79 y.o. male with PMH of DVT/PE on Xarelto and venous insufficiency who presents today for follow-up of dystrophic toenails/callus care. He notes his toenails are elongated in need ofcare. He does try to file calluses at home with pumice stone. No pain in the feet today. He presents today ambulating shoes with compression stockings using a cane for support. No other podiatric concerns. Last A1C: EXT Hemoglobin A1c, B Date Value Ref Range Status 03/25/2024 5.7 (H) <5.7 % of total Hgb Final Comment: For someone without known diabetes, a hemoglobin A1c value between 5.7% and 6.4% is consistent with prediabetes and should be confirmed with a follow-up test. For someone with known diabetes, a value <7% indicates that their diabetes is well controlled. A1c targets should be individualized based on duration of diabetes, age, comorbid conditions, and other considerations. This assay result is consistent with an increased risk of diabetes. Currently, no consensus exists regarding use of hemoglobin A1c for diagnosis of diabetes for children. Last Creatinine: EXT Creatinine, S Date Value Ref Range Status 09/05/2023 1.14 0.70 - 1.20 mg/dL Final Patient was last seen for management of comorbid conditions by Carmelo Forrest MD in [facility] on 05/18/24. The following portions of the patient's history were reviewed and updated as appropriate: current medications, medical history, social history, and surgical history. I reviewed the pertinent clinicalnotes in the electronic health record. REVIEW OF SYSTEMS 14 systems reviewed. Pertinent positives and pertinent negatives are documented in the history of present illness. OBJECTIVE VITALS There were no vitals taken for this visit. PHYSICAL EXAMINATION General: Well appearing in no acute distress. Vascular: DP pulses: diminished bilaterally PT pulses: diminished bilaterally Capillary refill: 3 seconds Edema: 2+ pitting Skin color: Pale Skin: Hair growth: Absent Toenails: All 10 toenails were elongated and dystrophic, the bilateral great and 2nd toenails with some mild thickening and crumbly nature. No ecchymosis is noted today. Skin pigmentation: Scattered hyperpigmentation Skin texture: Slightly doughy Skin temperature changes: Equally cool bilaterally Callus/corns: bilateral distal great toes, left sub-1st MT head, right lateral foot without significant build up PROCEDURE DETAILS: PROCEDURAL PAUSE Procedural pause conducted to verify: correct patient identity, procedure to be performed, and as applicable, correct side and site, correct patient position, and availability of special equipment orspecial requirements. PATIENT EDUCATION: Ready to learn, no apparent learning barriers were identified; learning preferences include listening. Explained diagnosis and treatment plan; patient expressed understanding of the content. INFORMED CONSENT Discussed the risks, benefits, alternatives, and the necessity of other members of the healthcare team participating in the procedure. All questions answered and consent given. After identifying the patient with two identifiers and obtaining verbal consent, nail nipper and electric nena were used to trim/file all 10 toenails. After, sanding nena was used to reduce calluses. This marked the end of our procedure, patient tolerated well. ASSESSMENT / PLAN #1 Dystrophic Toenail #2 Callus #3 Pmo Business Analyst (Current) Anticoagulant Treatment #4 Insufficiency Venous Peripheral It was a pleasure to see Mr. Calvin today. Patient unable to manage own podiatric care secondary tomedical comorbidities. With patient permission, all 10 toenails were trimmed/file today. He will plan to return in 61 days for continued care. BRUCE Story, P.A.-C. documented in this encounter Plan of Treatment Upcoming Encounters Date Type Department Care Team (Latest Contact Info) Description 05/06/2025 9:00 AM CONVEYOR TENDER CONCRETE MIXING PLANT Office Visit Department of Orthopedic Surgery in [place], [place] [address] [place] [phone] Ronan Lew MPAS, P.A.-C. [address] [place] [phone] 05/17/2025 9:45 AM CONVEYOR TENDER CONCRETE MIXING PLANT Clinical Communication Virtual Review in [place], [place] 200 [place] [phone] 05/18/2025 11:15 AM CONVEYOR TENDER CONCRETE MIXING PLANT Office Visit Department of Vascular Medicine in [place], [place] [address] [place] [phone] John Mojica M.D. 06/14/2025 9:45 AM CONVEYOR TENDER CONCRETE MIXING PLANT Office Visit Department of Dermatology in [place], [place] [address] [facility] [place] [phone] Mar Powlel M.D. [address] [place] [phone] Scheduled Referrals Name Type Priority Associated Diagnoses Orde r Schedule Orthopedic Surgery office visit (clinic) Outpatient Referral Routine Dystrophic Toenail Callus Pmo Business Analyst (Current) Anticoagulant Treatment Insufficiency Venous Peripheral Expected: 05/04/2025, Expires: 06/04/2026 documented as of this encounter Visit Diagnoses Diagnosis Dystrophic Toenail- Primary Callus Pmo Business Analyst (Current) Anticoagulant Treatment Insufficiency Venous Peripheral documented in this encounter Care Teams Cigarette Inspector Relationship Specialty Start Date End Date Elsewhere, Pcp PCP - General Family Medicine 11/07/20 documented as of this encounter
[2025-03-23] VITALS (7 sets, daily range): BP systolic 123–160; BP diastolic 66–103; PULSE 100–106; RESP 16–18; TEMP 36.5; O2SAT 88–95; BMI 31.9
--- OUTSIDE RECORDS SUMMARY | 2025-03-23 15:33 | XMS_ITS | Clinical Summary ---
Author Organization [email or web address] Address [address] [place] [id number] Care Team Providers Care Radiologist Physician Name Role Phone Pedro March MD Primary Care Provider [facility] [place] Unavailable Allergies Active Allergy Reactions Criticality Noted Date Comments Allergenic Extracts Itching 02/15/2014 dander Medications multivitamin (MVI) tablet Take 1 tablet by mouth once daily. 0 2 Active ascorbic acid (VITAMIN C) 1,000 mg tablet Take 1 tablet by mouth once daily. 0 2 Active Calcium carbonate (OYSTERSHELL CALCIUM) 500 mg tablet Take 1 tablet by mouth 2 times daily with meals. 0 2 Active cholecalciferol (VITAMIN D) 1,000 unit capsule Take 1 capsule by mouth once daily. 0 8 Active iron,carbonyl-vitam in C (VITRON C) 65 mg iron- 125 mg Delayed-Release tablet Take by mouth. 3 Active medication order composer vitamin E-1x week 0 3 Active metoprolol tartrate (LOPRESSOR) 25 mg tabletIndications:E ssential hypertension take 0.5 tablets by mouth in the morning and then 0.5 tablets in the evening. 90 Tablet 3 4 Active budesonide-formoter oL (SYMBICORT) 160-4.5 mcg/actuation (160-4.5 mcg each actuation) inhaler Inhale 2 Puffs by mouth two times daily. 4 Active rivaroxaban (XARELTO) 20 mg tablet Take 20 mg by mouth once daily with a meal. 4 Active omeprazole (PRILOSEC) 40 mg Delayed-Release capsuleIndications: Chronic GERD Take 1 capsule by mouth four times weekly on Saturday, Saturday, Saturday, Saturday 48 Capsule 1 5 Active atorvastatin (LIPITOR) 10 mg tabletIndications:O ther hyperlipidemia Take 0.5 Tablets (5 mg) by mouth once daily. 45 Tablet 1 5 Active folic acid 1 mg tabletIndications:N utritional deficiency TAKE ONE TABLET BY MOUTH ONE TIME DAILY 90 Tablet 3 5 Active azithromycin (Zithromax Z-Juan) 250 mg tabletIndications:P neumonitis Two tablets the first day, one daily days 2-5 6 Tablet 5 02/24/20 25 Active Problems Problem Noted Date Diagnosed Date History of pulmonary embolus 11/202203/26/2023 Status post ileostomy 08/07/2022 Prostate cancer 03/20/2022 Primary colon cancer; colectomy w/ ileal pouch [place] 03/20/2022 Paroxysmal atrial fibrillation 12/18/2021 Essential hypertension 01/31/2018 Hyperlipidemia 01/31/2018 Overweight 01/31/2017 Non-seasonal allergic rhinitis due to pollen Obstructive sleep apnea 01/31/2017 Ulcerative colitis 06/10/2015 Asthma Overview (01/24/2012): asthmatic colitis Impaired fasting glucose Resolved Problems Problem Noted Date Diagnosed Date Resolved Date 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 03/27/2024 Embolism and thrombosis of artery 08/07/2022 03/26/2023 DVT of lower extremity (deep venous thrombosis) 02/02/2014 12/29/2019 Overview (02/02/2014): Left leg Anticoagulation goal of INR 2 to 3 02/02/2014 03/20/2022 Anticoagulation monitoring, INR range 2-3 02/02/2014 08/09/2014 Ulcerative colitis 7 Encounters Date Type Department Care Team Description 02/18/2025 4:45 PM CDT Ancillary Procedure [facility] [address] [place] [address] 02/18/2025 4:10 PM CDT Office Visit [facility] [address] [place] [address] Pedro March MD Sinus Problem (Sinus since September-runny nose, sneezing a lot, drainage clear yellowish color, affects R ear, Chest affects the breathing more so heavily breathing. ) 02/18/2025 Travel 02/18/2025 Refill [facility] [address] [place] [address] Pedro March MD Refill Request (Folic Acid) 02/13/2025 Travel 12/31/2024 Refill [facility] [address] [place] [address] Pedro March MD Refill Request (Atorvastatin Tabs 10mg) 12/23/2024 Refill [facility] [address] [place] [address] Pedro March MD Refill Request (Omeprazole) from Last 3 Months Immunizations Immunization Administration Dates Next Due COVID-19 vaccine (JeNa[employer] NTech 30mcg/0.3mL) 12YO+ BIVALENT PF, MDV 11/19/2022 COVID-19 vaccine (JeNa[employer] NTech 30mcg/0.3mL) PF, MDV 08/11/2020,07/21/2020 Hepatitis A (Adult) 06/22/2014,04/22/2013 Influenza A (H1N1), Inactiva janeen (Age >=3 Years) 05/17/2009 Influenza Virus, Unspecified 01/31/2018, 02/08/2015,02/08/2015,02/20,02/09/2013,02/02/2012 Influenza, High-dose Inactivated 024,02/25/2019,01/31/2018,02/12,02/09/2016,02/08/2015,02/20/2014 ,02/09/2013 Influenza, High-dose Quadriv alent Inactivated 03/04/2023,02/20/2022,02/14/2021 Influenza, IIV3 (Age 6-35 mos) 02/23/2010,2004 Influenza, IIV3 (Age >=3 years) 03/08/2011,02/22 Influenza, IIV4 02/16/2020 Pneumococcal Conj 20-valent (Prevnar 20) 03/27/2024 Pneumococcal Poly,23-Valent (Pneumovax) 11/03/2012,05/17/2009,06/03/2007 Pneumococcal conj 13-Valent (Prevnar 13) 06/22/2014 RSV, Recombinant ADJ Reconst ituted (Arexvy 120MCG/0.5mL) 03/21/2023 TD, UNSPECIFIED 06/03/2007 Td (Age >=7 Years) 06/03/2007 Tdap 04/19/2023,11/03/2012 Typhoid (injectable) 05/25/2015,04/22/2013 Yellow Fever 06/22/2014 Zoster (Shingrix-RZV, recombinant) 09/18/2018, Zoster (Zostavax-ZVL, live) 05/25/2009 Family History Medical History Relation Name Comments Stroke Brother 1 Heart attack Brother 2 Diabetes Brother 3 Stroke Father fatal at 76 Diabetes Mother Cancer-colon Neg. 1 Cancer-prostate Neg. 2 Relation Name Status Comments Brother 1 Brother 2 Brother 3 Father Mother Neg. 1 Neg. 2 Social History Tobacco Use Types Packs/Day Years Used Date Smoking Tobacco: Never Smokeless Tobacco: Never Tobacco Cessation:Counseling Given: No Alcohol Use Standard Drinks/Week Comments Yes 0 (1 standard drink = 0.6 oz pur e alcohol) Once or twice per month. PHQ-2 Answer Date Recorded PHQ-2 TOTAL SCORE 0 03/27/2024 Social Connections Answer Date Recorded Do you often feel lonely or isolated from those around you? 0 02/13/2025 Financial Resource Strain Answer Date R ecorded Difficulty of Paying Living Expenses 3 02/13/2025 Difficulty of Paying Living Expenses Not on file 02/13/2025 Food Insecurity Answer Date Recorded Do you worry your food will run out before you are able to buy more? 1 02/13/2025 Transportation Needs Answer Date Record ed Does lack of transportation keep you from medica l appointments? 1 02/13/2025 Does lack of transportation keep you from work, meetings or getting things that you need? 1 02/13/2025 Housing Stability Answer Date Recorded What is your housing situation today? 1 02/13/2025 Utilities Answer Date Recorded Do you have trouble paying f or utilities (for example, heat, electricity, water, phone)? 1 02/13/2025 Sex and Gender Information Value Date Recorded Sex Assigned at Male 07/18/2020 7:38 PM HIGHER EDUCATION ADMINISTRATOR Legal Sex Male 8:37 AM HIGHER EDUCATION ADMINISTRATOR Gender Identity Male 07/18/2020 7:38 PM HIGHER EDUCATION ADMINISTRATOR Sexual Orientation Straight 07/18/2020 7: 38 PM HIGHER EDUCATION ADMINISTRATOR Obstetrics History Last Filed Vital Signs Vital Sign Reading Time Taken Comments Blood Pressure 150/91 02/18/2025 4:13 PM CDT Pulse 93 02/18/2025 4:13 PM CDT Temperature 36.5 C (97.7 F) 02/18/2025 4:13 PM CDT Respiratory Rate 20 02/04/2022 11:59 AM CDT Oxygen Saturation 96% 02/18/2025 4:13 PM CDT Inhaled Oxygen Concentration - - Weight 112 kg (247 lb) 02/18/2025 4:13 PM CDT Height 183.6 cm (6' 0.28) 09/08/2024 9:24 AM CD T Body Mass Index 33.24 09/08/2024 9:24 AM CDT Plan of Treatment Health Maintenance Due Date Last Done Comments Influenza Vaccine (#1) 2025 , 02/16/2020, 02/25/2019, Additional history exists Depression screening for age 12+ 03/27/2025 03/27/2024, 03/29/2023, 03/26/2023, Additional history exists Medicare Wellness for age 65+ 03/28/2025 03/27/2024, 03/26/2023, 03/20/2022 BMI (ht and wt on same day) for age 18+ 09/08/2025 09/08/2024, 03/27/2024, 03/26/2023, Additional history exists Tetanus booster 04/19/2033 04/19/2023, 11/01, 11/03/2012, Additional history exists Zoster (shingles) series for age 50+ Completed 09/18/2018, 07/14/2018, 05/25/2009 RSV vaccine for adults or Completed 03/21/2023 Pneumococcal series for age 50+ Completed 03/27/2024, 06/22/2014, 11/03/2012, Additional history exists COVID-19 vaccine series Completed 02/11/20, 02/25/2024, 03/04/2023, Additional history exists Hepatitis B series for 19+ Aged Out N o longer eligible based on patient's age to complete this topic Procedures Procedure Name Priority Date/Time Associated Diagnosis Comments XR CHEST 2 VIEWS PA AND LATERAL Routine 02/18/2025 4:40 PM CDT Cough, unspecified type from Last 3 Months Results * XR CHEST 2 VIEWS PA AND LATERAL (02/18/2025 4:40 PM CDT) Anatomical Region Laterality Modality CHEST, THORAX, Lung, HEART Compu janeen Radiography 02/19/2025 11:5 8 AM CDT Impressions 02/19/2025 11:58 AM CDT 1. No acute cardiopulmonary disease is seen. Dictated by: Shayne Otero MD @ 02/19/2025 11:58:00 (Electronically Signed) Narrative 02/19/2025 11:58 AM CDT For Patients: As a result of the Cures Act, medical imaging exams and procedure reports are released immediately into your electronic medical record. You may view this report before your referring provider. If you have questions, please contact your health care provider. INDICATION: Cough TECHNIQUE: Chest radiograph 2 views COMPARISON: 07/10/2021 FINDINGS: Mediastinum: The mediastinum is normal in appearance. The heart silhouette is normal in size and morphology. Lung: Both lungs are unremarkable in appearance. No sign of pleural effusion seen. No pneumothorax is identified. Bone and Soft tissue: Unremarkable for age. Procedure Note Shayne Otero MD - 02/19/2025 For Patients: As a result of the Cures Act, medical imagingexams and procedure reports are released immediately into your electronicmedical record. You may view this report before your referring provider.If you have questions, please contact your health care provider. INDICATION: Cough TECHNIQUE: Chest radiograph 2 views COMPARISON: 07/10/2021 FINDINGS: Mediastinum: The mediastinum is normal in appearance. The heart silhouetteis normal in size and morphology. Lung: Both lungs are unremarkable in appearance. No sign of pleuraleffusion seen. No pneumothorax is identified. Bone and Soft tissue: Unremarkable for age. IMPRESSION: 1. No acute cardiopulmonary disease is seen. Dictated by: Shayne Otero MD @ 02/19/2025 11:58:00 (Electronically Signed) us Pedro March MD GENERAL IMAGING Final Result from Last 3 Months Insurance [employer] [facility] HC MEDICARE PPS wmbly Advance Directives Documents on File Type Date Recorded Patient Security System Technician Expl anation Healthcare Directive 03/18/2017 3:45 PM A Marshall LONG, 07/12/16 Care Teams Radiologist Physician Relationship Specialty Start Date End Date Pedro March MD [address] [place] [address] PCP - General Family Practice 01/24/[address] [address] 11/13/21
--- NOTE | 2025-03-23 16:19 | ED.GENADULT ---
HPI - General Adult General Date Seen: 03/23/25 Chief complaint: Abdominal Pain Stated complaint: Unspecified complaint Time Seen by Provider: 03/23/25 15:46 History of Present Illness HPI narrative: 79-year-old male presenting to the emergency department today for evaluation of decreased output from his stoma. He reports some a longstanding history of ulcerative colitis and apparently also a malignancy in his colon so he had a complete colectomy done at [facility] about 3 years ago. He has been left with a ileostomy ever since then. He says he is generally doing well. He is not on any immunosuppressive meds or other meds to manage his you see any more. He has a history of ulcerative colitis and also history of recurrent DVTs. He has ER visits on 08/01/2022 and 01/17/2023 for similar symptoms which included decreased stool output from his ostomy. Workup during those ER visits suggested ileus as a cause for the decreased output. He was managed supportively with pain meds, fluids. Also of note during each of these visits he also had a UTI which was treated with a course of antibiotics. He reports developing some generalized intermittent abdominal pain mostly in the periumbilical region around his stoma that began yesterday and got worse today. Along with that he has noticed decreased output of stool into the stoma and only a little bit of liquid but none of the semi formed stool which is typical. No bloody output. He has not had any fever. He has had nausea off and on but it got much worse this afternoon, prompting his visit to the ER. No vomiting yet. Urination has been normal. No clear cause for the symptoms. No recent change in his health. He does have a chronic cough since September but that is unchanged lately. Related Data Home Medications ?Medication ?Instructions ?Recorded ?Confirmed atorvastatin 10 mg tablet 5 mg PO QPM 11/07/24 11/07/24 fluticasone 250 mcg-salmeterol 50 1 ea inhalation BID 11/07/24 11/07/24 mcg/dose blistr powdr for inhalation fluticasone propionate 50 spray intranasal 11/07/24 11/07/24 mcg/actuation nasal spray,suspension folic acid 1 mg tablet 1 mg PO DAILY 11/07/24 11/07/24 metoprolol tartrate 25 mg tablet 25 mg PO DAILY 11/07/24 11/07/24 omeprazole 40 mg capsule,delayed 40 mg PO 11/07/24 11/07/24 release rivaroxaban 20 mg tablet (Xarelto) 20 mg PO QDAY 11/07/24 11/07/24 Allergies Allergy/AdvReac Type Severity Reaction Status Date / Time omid trevino Allergy Verified 11/07/24 09:57 [facility] Social History Smoking Status: Never smoker Do you use any of these nicotine containing products: None Second hand tobacco smoke exposure: No How often do you have a drink containing alcohol: 2-4 times a month How many standard drinks containing alcohol do you have on a typical day: 1 or 2 How often do you have six or more drinks on one occasion: Never AUDIT-C Alcohol total score: 2 Non-prescribed substance use: denies use service: Yes Exam Narrative: Exam Narrative: Constitutional: Appears well-developed and well-nourished. Alert. Conversant but uncomfortable and nauseous, sitting up at the bed and dry heaving as a into the room. Non toxic. HENT: Head: Atraumatic. Nose: Nose normal. Mouth/Throat: Oral mucosa is clear and moist. no trismus. Eyes: Conjunctivae normal. EOM normal. Pupils equal, round, and reactive to light. No scleral icterus. Neck: Normal range of motion. Neck supple. No tracheal deviation present. Cardiovascular: Normal rate, regular rhythm. No gallop. No friction rub. No murmur heard. Symmetric radial artery pulses Pulmonary/Chest: Effort normal. No stridor. No respiratory distress. No wheezes. No rales. No rhonchi . No tenderness. Abdominal: Soft. Bowel sounds normal. No distension. No mass. Periumbilical and central tenderness. No rebound. No guarding. Ostomy in the central lower abdomen. Does have a small amount of dark brown soft/watery stool in the ostomy bag. Color of the mucosa of the stoma appears to be normal pink. Musculoskeletal: RUE: Normal range of motion. No tenderness. No deformity LUE: Normal range of motion. No tenderness. No deformity RLE: Normal range of motion. No edema. No tenderness. No deformity LLE: Normal range of motion. No edema. No tenderness. No deformity Neurological: Alert and oriented to person, place, and time. Normal strength. CN II-VII intact. No sensory deficit. GCS eye subscore is 4. GCS verbal subscore is 5. GCS motor subscore is 6. Normal coordination Skin: Skin is warm and dry. No rash noted. No pallor. Normal capillary refill. Psychiatric: Normal mood. Normal affect. Const: Vital Signs, click to edit/add: Vital Signs - 24 hr 03/23/25 15:41 03/23/25 17:08 03/23/25 17:15 Temperature 97.7 F Pulse Rate 104 H 106 H Pulse Rate [Pulse Oximeter] 104 H Respiratory Rate 18 Blood Pressure Blood Pressure [Ri ght Upper Arm] 160/103 H Pulse Oximetry 92 88 92 Oxygen Delivery Me thod Room Air 03/23/25 18:05 03/23/25 18:06 Temperature Pulse Rate 102 H Pulse Rate [Pulse Oximeter] Respiratory Rate 16 Blood Pressure 123/66 Blood Pressure [Ri ght Upper Arm] Pulse Oximetry 95 Oxygen Delivery Me thod Course Course ED Course: Recheck-nausea improved. Pain improved but not resolved. Vital Signs Vital signs: Initial Vital Signs Temperature 97.7 F 03/23/25 15:41 Temperature Source Temporal Artery Scan 03/23/25 15:41 Pulse Rate 104 H 03/23/25 15:41 Respiratory Rate 18 03/23/25 15:41 Blood Pressure 160/103 H 03/23/25 15:41 Blood Pressure Mean 122 H 03/23/25 15:41 Blood Pressure Position Sitting 03/23/25 15:41 Pulse Oximetry 92 03/23/25 15:41 Oxygen Delivery Method Room Air 03/23/25 15:41 Vital Signs Temperature 97.7 F 03/23/25 15:41 Pulse Rate 104 H 03/23/25 15:41 Respiratory Rate 18 03/23/25 15:41 Blood Pressure 160/103 H 03/23/25 15:41 Pulse Oximetry 92 03/23/25 15:41 Oxygen Delivery Method Room Air 03/23/25 15:41 Temperature 97.7 F 03/23/25 15:41 Pulse Rate 102 H 03/23/25 18:05 Respiratory Rate 16 03/23/25 18:06 Blood Pressure 123/66 03/23/25 18:06 Pulse Oximetry 95 03/23/25 18:05 Oxygen Delivery Method Room Air 03/23/25 15:41 Medications Administered Medications: Discontinued Medications Generic Name Dose Route Start Last Admin Trade Name Myke PRN Reason Stop Dose Admin Fentanyl 25 mcg 03/23/25 16:31 03/23/25 16:58 Fentanyl 100 Mcg/2 Ml Inj IVP 03/23/25 16:32 25 mcg ONCE ONE Administration Sodium Chloride 1,000 mls @ 1,000 mls/hr 03/23/25 16:45 03/23/25 18:07 0.9 % Sodium Chloride 1000 Ml IV 03/23/25 17:44 Infused .Q1H RAFAELA Infusion Ondansetron HCl 4 mg 03/23/25 16:31 03/23/25 16:57 Ondansetron 2 Mg/Ml Inj IVP 03/23/25 16:32 4 mg ONCE ONE Administration Medical Decision Making MDM Narrative Medical decision making narrative: Very pleasant generally healthy 79-year-old male presenting to the ER today with his with concern for some central in generalized episodic abdominal pain that began yesterday, worsening today, now developing nausea and dry heaves and significantly decreased stoma/ostomy output. Differential here includes ileus which has happened on 2 previous occasions since his total colectomy. Differential would also include bowel obstruction, perforation, dehydration, abscess, enteritis, among others. Patient does have a sinus tachycardia but otherwise is afebrile and has a normal blood pressure. He is hemodynamically stable. Laboratory workup shows a leukocytosis. Fortunately venous lactic acid is normal. Electrolytes and kidney function are normal. CT scan shows evidence for a mechanical small-bowel obstruction with transition points located both in presumed adhesions along the anterior abdominal wall suture line and also with a transition point in his parastomal hernia. Discussed with our general surgeon, Dr. Wilder. She reviewed the patient's history, presenting symptoms, lab findings, vital signs, and imaging with me. Her recommendation is to transfer to [facility]. If this does require surgery would be a technically complicated up operation and likely he would require GI consultation as well. She wonders perhaps if the patient is now developing a version of Crohn's disease rather than UC. We do not have GI consult taping services here. Additionally surgery we complicated [facility] and [place] because he is on Xarelto and we do not have reversal agents such as endaxanet alpha on formulary here. Discussed with the patient and his and they agree they would like to transfer to [place]. Lab Data Labs: Lab Results 03/23/25 03/23/25 03/23/25 Range/Units 16:34 16:45 18:08 WBC 13.60 H (4.50-11.00) K/uL RBC 5.28 (4.30-5.90) m/uL Hgb 16.2 (13.5-17.5) gm/dL Hct 49.6 (37.0-53.0) % MCV 94 (80-100) fL MCH 31 (26-34) pg MCHC 33 (32-36) gm/dL RDW Coeff of [place] 14.1 (11.5-15.5) % Plt Count 236 (140-440) K/uL Neut % (Auto) 83.5 H (42.0-72.0) % Lymph % (Auto) 9.3 L (20-44) % [place] % (Auto) 6.0 (0.0-11.0) % Eos % (Auto) 1.0 (0.0-7.0) % Baso % (Auto) 0.1 (0.0-3.0) % Neut # (Auto) 11.40 H (1.7-7.0) K/uL Lymph # (Auto) 1.30 (0.90-2.90) K/uL [place] # (Auto) 0.80 (0.00-0.90) K/UL Eos # (Auto) 0.10 (0.00-0.50) K/uL Baso # (Auto) 0.00 (0.00-0.30) K/uL Abs Immat Gran (auto) 0.00 (0.00-0.30) K/uL Imm/Tot Granulo (auto) 0.1 % Sodium 139 (135-149) mmol/L Potassium 4.2 (3.6-5.1) mmol/L Chloride 98 (96-114) mmol/L Carbon Dioxide 24 (20-32) mmol/L Anion Gap 17 H (7-15) mEq/L BUN 16 (7-30) mg/dL Creatinine 1.2 (0.5-1.5) mg/dL Estimated Creat Clear 55.49 Estimated GFR 61 ml/min Glucose 125 H (60-115) mg/dL Lactate 1.2 (0.5-1.9) mmol/L Calcium 10.1 (8.4-10.6) mg/dL Total Bilirubin 1.4 (0.1-1.5) mg/dL AST 35 (12-35) U/L ALT 27 (4-50) U/L Alkaline Phosphatase 72 (40-150) U/L Total Protein 8.8 H (6.0-8.3) g/dL Albumin 4.8 (3.3-5.0) g/dL Lipase 120 (23-300) U/L Urine Color Yellow (Yellow) Urine Appearance Clear (Clear) Urine pH 5.0 (5.0-8.5) Ur Specific [place] 1.010 (1.000-1.030) Urine Protein Negative (Negative) Urine Glucose (UA) Negative (Negative) Urine Ketones Negative (Negative) Urine Blood Negative (Negative) Urine Nitrite Negative (Negative) Urine Bilirubin Negative (Negative) Urine Urobilinogen 0.2 (0.2-1.0) Ur Leukocyte Esterase Trace A (Negative) POC Creatinine 1.4 H (0.6-1.3) mg/dl Imaging Data CT scan - abdomen: Attestation: I have reviewed the pertinent imaging results. Radiologist's impression: IMPRESSION: 1. Small bowel obstruction. There are several transition points. There are at least 2 transition points near the suture line in the left anterior abdomen that are probably adhesive. There is an additional transition point at the parastomal hernia. No perforation or ischemia. 2. Similar soft tissue in the presacral space. Discharge Plan Discharge Clinical Impression: Small bowel obstruction Patient Disposition: [facility] Prescriptions: No Action fluticasone propion-salmeterol 250-50 mcg/dose blister with device 1 ea inhalation BID atorvastatin 10 mg tablet 5 mg PO QPM omeprazole 40 mg capsule,delayed release(DR/EC) 40 mg PO folic acid 1 mg tablet 1 mg PO DAILY fluticasone propionate 50 mcg/actuation spray,suspension intranasal metoprolol tartrate 25 mg tablet 25 mg PO DAILY Xarelto 20 mg tablet 20 mg PO QDAY Rx Instructions: must administer with evening meal Stand Alone Forms: [facility] Info Instructions
--- NOTE | 2025-03-23 16:31 | CRLHL7_ITS ---
For Patients: As a result of the Century Cures Act, medical imaging exams and procedure reports are released immediately into your electronic medical record. You may view this report before your referring provider. If you have questions, please contact your health care provider. INDICATION: Abdominal pain and nausea. COMPARISON: 08/01/2022 TECHNIQUE: CT of the abdomen and pelvis with intravenous contrast. Multiplanar axial, coronal, and sagittal reformats were reconstructed. Contrast: 119 mL Isovue 370. FINDINGS: Lung bases: Bibasilar atelectasis. Calcified granuloma in the left lower lobe. Bibasilar scarring is similar to prior. Liver: Normal. No mass. Gallbladder and bile ducts: Minimal layering sludge or tiny gallstones in the gallbladder lumen. No cholecystitis. No bile duct dilation. Pancreas: Normal. Spleen: Normal. Adrenal glands: Normal. Kidneys: Normal parenchyma. No cyst or solid mass. No calculi. No urinary tract dilation. Urinary bladder: Partially filled. Pelvis: Borderline prostatomegaly. Vessels: Atherosclerosis. No aortic aneurysm. Patent mesenteric arteries and veins. Bowel: Postop proctocolectomy. There is some irregular soft tissue in the presacral space that measures 3 x 3.9 cm and has some central fluid density. Similar overall size compared to 08/01/2022. The distal esophagus is fluid-filled. The stomach is filled with a large amount of food and fluid. The small bowel is diffusely dilated. There are a couple of transition point associated with a small bowel suture line in the left mid abdomen. There also transition points were the bowel passes through the abdominal wall. There is a parastomal hernia. Dilated bowel measures up to 4 centimeters in diameter. There is diffuse bowel hyperemia without bowel wall thickening. There is some adjacent ascites in the right abdomen. No abscess or phlegmon. Lymph nodes: No adenopathy. Peritoneum: No ascites. Abdominal wall: Parastomal hernia. Bones: No fractures. No focal worrisome bone lesions. IMPRESSION: 1. Small bowel obstruction. There are several transition points. There are at least 2 transition points near the suture line in the left anterior abdomen that are probably adhesive. There is an additional transition point at the parastomal hernia. No perforation or ischemia. 2. Similar soft tissue in the presacral space. Please note that all CT scans at this facility use dose modulation, iterative reconstruction, and/or weight-based dosing when appropriate to reduce radiation dose to as low as reasonably achievable. Dictated by Lu Hood MD @ 03/23/2025 5:53:30 PM (Electronically Signed)
[2025-03-23 16:55] LABS: Lactate* 1.2 mmol/L (0.5-1.9)
[2025-03-23 16:56] LABS: Hematocrit* 49.6 % (37.0-53.0); Hemoglobin* 16.2 gm/dL (13.5-17.5); Immature Granulocytes Pct Auto 0.1 %; Mean Corpuscular HGB Conc 33 gm/dL (32-36); Mean Corpuscular Hemoglobin 31 pg (26-34); Mean Corpuscular Volume 94 fL (80-100); RDW Coefficient of Variation % 14.1 % (11.5-15.5); Red Blood Count* 5.28 m/uL (4.30-5.90); White Blood Count* 13.60 K/uL (4.50-11.00)
[2025-03-23] MEDS: ONDANSETRON 2 MG/ML inj 4 MG IVP ×2 (16:57→19:29)
[2025-03-23 16:58] LABS: Immature Granulocytes Abs Auto 0.00 K/uL (0.00-0.30); Lymphocytes Absolute Auto 1.30 K/uL (0.90-2.90); Slide Review Reflex No
[2025-03-23 17:05] LABS: Creatinine, Point-of-Care* 1.4 mg/dl (0.6-1.3)
[2025-03-23 17:12] LABS: Chloride* 98 mmol/L (96-114)
[2025-03-23 17:13] LABS: Albumin* 4.8 g/dL (3.3-5.0); Potassium* 4.2 mmol/L (3.6-5.1); Sodium* 139 mmol/L (135-149)
[2025-03-23 17:15] LABS: Alanine Aminotransferase* 27 U/L (4-50); Aspartate Amino Transferase* 35 U/L (12-35)
[2025-03-23 17:16] LABS: Alkaline Phosphatase* 72 U/L (40-150); Anion Gap 17 mEq/L (7-15); Bilirubin Total* 1.4 mg/dL (0.1-1.5); Calcium* 10.1 mg/dL (8.4-10.6); Carbon Dioxide* 24 mmol/L (20-32); Glucose* 125 mg/dL (60-115); Total Protein* 8.8 g/dL (6.0-8.3)
[2025-03-23 17:17] LABS: Blood Urea Nitrogen* 16 mg/dL (7-30); Creatinine* 1.2 mg/dL (0.5-1.5); Est. Creatinine Clearance* 55.49; Estimated Glomerular Filt Rate 61 ml/min
--- OUTSIDE RECORDS SUMMARY | 2025-03-23 18:09 | XMS_ITS ---
Author Organization [facility] Address [address] [place] [address] Care Team Providers Care Staff Radiologist Name Role Phone Elsewhere, Pcp Primary Care Provider Unavailabl e Active Problems * This document contains information received from the source organization and may not represent a complete record from that organization. 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 Intestinal 09/13/2021 Overview (11/03/2021): Added automatically from request for surgery [id number] Malignant Neoplasm Of Sigmoid Colon 08/16/2021 Dysplasia Colon 02/04/2020 Personal History Of Malignant Neoplasm Of Prosta te 02/04/2020 Hypertension Essential Primary 01/31/2018 Hypothyroidism Subclinical 11/26/2016 Hyperlipidemia 07/25/2016 Carpal Tunnel Syndrome Right 02/13/2016 Nocturia 02/13/2016 Colitis Ulcerative 12/16/2015 Apnea Sleep Obstructive 08/01/2015 Thrombosis Deep Vein Personal History 12/14/2014 Cancer Skin Basal Cell Personal History 07/30/19 15 Loss Hearing Sensorineural Bilateral 11/02/2009 Steatohepatitis Non Alcoholic 12/13/2004 Asthma NOS 01/05/2004 Current Treatment and Therapy Plans No current plan information found. Past Treatment and Therapy Plans Lifetime Dose Tracking * Chemical Lifetime Dose Automatic Entry Manual Entr y Radiation 259 mGy 259 mGy 0 mGy Fluoro Time 24.3 minutes 24.3 minutes 0 minutes DAP (uGy-m2) 4,398.35 uGy-m2 4,398.35 uGy-m2 0 uGy-m2 Resolved Problems Problem Noted Date Diagnosed Date Resolved Date Deficiency Iron 02/05/2019 02/04/2020 Pain Foot Right 02/04/2019 02/04/2020 Primary Malignant Neoplasm Of Prostate 08/03/2016 02/04/2020 Asthma Chronic 02/13/2016 02/05/2019
--- OUTSIDE RECORDS SUMMARY | 2025-03-23 18:09 | XMS_ITS | Encounter Summary ---
Author Organization [facility] Address [address] [place] [address] Care Team Providers Care Teacher Adult Education Name Role Phone Elsewhere, Pcp Primary Care Provider Unavailabl e Reason for Referral * Outpatient (Routine) - Authorized Specialty Diagnoses / Procedures Referred By Nicol portillo Referred To Contact Dermatology Harmony De León M.D. [address] [place] [phone] Phone: tel: fax: [facility] Referral ID Status Reason Start Date Expiration Date V isits Requested Visits Authorized [id number] Authorized 03/23/2025 09/22/2026 1 1 Scheduling Instructions Please contact patient to offer nurse visit 03/26. Encounter Details Date Type Department Care Team (Late st Contact Info) Description 03/23/2025 Orders Only Department of Dermatology in [place], [place] [address] [place] [phone] Harmony De León M.D. [address] [place] [phone] Social History Tobacco Use Types Packs/Day Years Used Date Smoking Tobacco: Never Passive Smoke Exposure: Never Smokeless Tobacco: Never Comments:Not Alcohol Use Standard Drinks/Week Comments Yes 1 (1 standard drink = 0.6 oz pur e alcohol) 1 Glass of wine twice a month. [facility] Utilities Answer Date Recorded In the past 12 months has [employer], gas, oil, or water company threatened to [...] your living situation today? I have a [facility] place to live 08/24/2024 Education Answer Date Recorded What is the highest level of school you have completed or the highest degree you have received? Master's degree (e.g., MA, MS, Pamela, MEd, BALE PILER, LAUREN) 01/30/2019 Sex and Gender Information Value Date Recorded Sex Assigned at Male 01/29/2018 9:39 PM CDT Legal Sex Male 5:18 AM LEAD NET SOFTWARE DEVELOPER Gender Identity Male 01/29/2018 9:39 PM CDT Sexual Orientation Straight 01/29/2018 9: 39 PM CDT documented as of this encounter Plan of Treatment Upcoming Encounters Date Type Department Care Team (Latest Contact Info) Description 05/06/2025 9:00 AM LEAD NET SOFTWARE DEVELOPER Office Visit Department of Orthopedic Surgery in [place], [place] [address] [place] [phone] Ronan Lew, [facility], [facility]C. [address] [place] [phone] 05/17/2025 9:45 AM LEAD NET SOFTWARE DEVELOPER Clinical Communication Virtual Review in [place], [place] [address] [place] [address] 05/18/2025 11:15 AM LEAD NET SOFTWARE DEVELOPER Office Visit Department of Vascular Medicine in [place], [place] [address] [place] [phone] John Mojica M.D. 06/14/2025 9:45 AM LEAD NET SOFTWARE DEVELOPER Office Visit Department of Dermatology in [place], [place] [address] [place] [address] [place] [phone] Mar Powell M.D. [address] [place] [phone] Scheduled Referrals Name Type Priority Associated Diagnoses Order Schedule Dermatology nurse visit (clinic) Outpatient Referral Routine Expected: 03/26/2025 (Approximate), Expires: 06/21/2025 documented as of this encounter Visit Diagnoses Not on filedocumented in this encounter Care Teams Teacher Adult Education Relationship Specialty Start Date End Date Elsewhere, Pcp PCP - General Family Medicine 11/07/20 documented as of this encounter
--- OUTSIDE RECORDS SUMMARY | 2025-03-23 18:10 | XMS_ITS | Encounter Summary ---
Author Organization [facility] Address [address] [place] [address] Care Team Providers Care Radarman Name Role Phone Elsewhere, Pcp Primary Care Provider Unavailabl e Encounter Details Date Type Department Care Team (Late st Contact Info) Description 03/07/2025 CPAP Download Remote Patient Monitoring [facility] [address] [place] [phone] [facility], Provider, Social History Tobacco Use Types Packs/Day Years Used Date Smoking Tobacco: Never Passive Smoke Exposure: Never Smokeless Tobacco: Never Comments:Not Alcohol Use Standard Drinks/Week Comments Yes 1 (1 standard drink = 0.6 oz pur e alcohol) 1 Glass of wine twice a month. [facility] Utilities Answer Date Recorded In the past 12 months has e [employer], gas, oil, or water [employer] threatened to shut off services in your [...] your living situation today? I have a [facility] place to live 08/24/2024 Education Answer Date Recorded What is the highest level of school you have completed or the highest degree you have received? Master's degree (e.g., MA, MS, Pamela, MEd, DIRECTOR OF CONSERVATION, LAUREN) 01/30/2019 Sex and Gender Information Value Date Recorded Sex Assigned at Male 01/29/2018 9:39 PM CDT Legal Sex Male 5:18 AM CHEMICAL ENGINEER Gender Identity Male 01/29/2018 9:39 PM CDT Sexual Orientation Straight 01/29/2018 9: 39 PM CDT documented as of this encounter Plan of Treatment Upcoming Encounters Date Type Department Care Team (Latest Contact Info) Description 05/06/2025 9:00 AM CHEMICAL ENGINEER Office Visit Department of Orthopedic Surgery in [place], [place] [address] [place] [phone] Ronan Lew, MPAS, P.A.-C. [address] [place] [phone] 05/17/2025 9:45 AM CHEMICAL ENGINEER Clinical Communication Virtual Review in [place], [place] 200 [place] [address] 05/18/2025 11:15 AM CHEMICAL ENGINEER Office Visit Department of Vascular Medicine in [place], [place] [address] [place] [phone] John Mojica M.D. 06/14/2025 9:45 AM CHEMICAL ENGINEER Office Visit Department of Dermatology in [address] [place] [phone] Mar Powell M.D. [address] [place] [phone] documented as of this encounter Visit Diagnoses Not on filedocumented in this encounter Care Teams Radarman Relationship Specialty Start Date End Date Elsewhere, Pcp PCP - General Family Medicine 11/07/20 documented as of this encounter
--- OUTSIDE RECORDS SUMMARY | 2025-03-23 18:10 | XMS_ITS | Encounter Summary ---
Author Organization [facility] Address [address] [place] [address] Care Team Providers Care Internal Consultant Name Role Phone Elsewhere, Pcp Primary Care Provider Unavailabl e Reason for Referral * Outpatient (Routine) - Closed Specialty Diagnoses / Procedures Referred By Contac t Referred To Contact Dermatology Diagnoses Malignant Neoplasm Of Skin Squamous Cell Carcinoma Procedures SELVIN MOHS 1-4 sites Mar Powell M.D. 200 [place] [address] Phone: tel: fax: [facility] Referral ID Status Reason Start Date Expiration Date Visits Re quested Visits Authorized [id number] Closed 02/12/2025 05/15/2026 1 1 Encounter Details Date Type Department Care Team (Late st Contact Info) Description 02/12/2025 Results Follow-Up Department of Dermatology in [place], [place] [address] [place] [address] Mar Powell M.D. [address] [place] [phone] Dermatopathology Social History Tobacco Use Types Packs/Day Years Used Date Smoking Tobacco: Never Passive Smoke Exposure: Never Smokeless Tobacco: Never Comments:Not Alcohol Use Standard Drinks/Week Comments Yes 1 (1 standard drink = 0.6 oz pur e alcohol) 1 Glass of wine twice a month. [facility] Utilities Answer Date Recorded In the past 12 months has th e electric, gas, oil, or water [employer] threatened to shut off services in your [...] your living situation today? I have a [facility] place to live 08/24/2024 Education Answer Date Recorded What is the highest level of school you have completed or the highest degree you have received? Master's degree (e.g., MA, MS, Pamela, MEd, INTERNAL CONTROLS ANALYST, LAUREN) 01/30/2019 Sex and Gender Information Value Date Recorded Sex Assigned at Male 01/29/2018 9:39 PM CDT Legal Sex Male 5:18 AM CHEF GERMAN Gender Identity Male 01/29/2018 9:39 PM CDT Sexual Orientation Straight 01/29/2018 9: 39 PM CDT documented as of this encounter Plan of Treatment Upcoming Encounters Date Type Department Care Team (Latest Contact Info) Description 05/06/2025 9:00 AM CHEF GERMAN Office Visit Department of Orthopedic Surgery in [place], [place] [address] [place] [phone] Ronan Lew, [facility], P.A.-C. [address] [place] [phone] 05/17/2025 9:45 AM CHEF GERMAN Clinical Communication Virtual Review in [place], [place] [address] [place] [phone] 05/18/2025 11:15 AM CHEF GERMAN Office Visit Department of Vascular Medicine in [place], [place] [address] [place] [phone] John Mojica M.D. 06/14/2025 9:45 AM CHEF GERMAN Office Visit Department of Dermatology in [place], [place] [address] [place] [address] [place] [phone] Mar Powell M.D. [address] [place] [phone] Scheduled Orders Name Type Priority Associated Diagnoses Orde r Schedule SELVIN MOHS 1-4 sites Dermatology Routine Malignant Neoplasm Of Skin Squamous Cell Carcinoma Expected: 02/12/2025, Expires: 05/14/2026 documented as of this encounter Visit Diagnoses Diagnosis Malignant Neoplasm Of Skin Squamous Cell Carcinoma- Primary documented in this encounter Care Teams Internal Consultant Relationship Specialty Start Date End Date Elsewhere, Pcp PCP - General Family Medicine 11/07/20 documented as of this encounter
--- OUTSIDE RECORDS SUMMARY | 2025-03-23 18:10 | XMS_ITS | Encounter Summary ---
Author Organization [facility] Address [address] [place] [address] Care Team Providers Care Environmental Services Assistant Name Role Phone Elsewhere, Pcp Primary Care Provider Unavailabl e Encounter Details Date Type Department Care Team ([facility] st Contact Info) Description 03/22/2025 Clinical Communication Department of Dermatology in [place], [place] [address] [place] [phone] Harmony De León M.D. [address] [place] [address] Social History Tobacco Use Types Packs/Day Years Used Date Smoking Tobacco: Never Passive Smoke Exposure: Never Smokeless Tobacco: Never Comments:Not Alcohol Use Standard Drinks/Week Comments Yes 1 (1 standard drink = 0.6 oz pur e alcohol) 1 Glass of wine twice a month. [facility] Utilities Answer Date Recorded In the past 12 months has [facility] [employer], gas, oil, or water [employer] threatened to shut off services in your [...] your living situation today? I have a [facility] place to live 08/24/2024 Education Answer Date Recorded What is the highest level of school you have completed or the highest degree you have received? Master's degree (e.g., MA, MS, Pamela, MEd, SKIDDER, LAUREN) 01/30/2019 Sex and Gender Information Value Date Recorded Sex Assigned at Male 01/29/2018 9:39 PM CDT Legal Sex Male 5:18 AM BUILDING PRINCIPAL Gender Identity Male 01/29/2018 9:39 PM CDT Sexual Orientation Straight 01/29/2018 9: 39 PM CDT documented as of this encounter Plan of Treatment Upcoming Encounters Date Type Department Care Team (Latest Contact Info) Description 05/06/2025 9:00 AM BUILDING PRINCIPAL Office Visit Department of Orthopedic Surgery in [place], [place] [address] [place] [phone] Ronan Lew, MPAS, P.A.-C. [address] [place] [phone] 05/17/2025 9:45 AM BUILDING PRINCIPAL Clinical Communication Virtual Review in [place], [place] 200 [place] [phone] 05/18/2025 11:15 AM BUILDING PRINCIPAL Office Visit Department of Vascular Medicine in [place], [place] [address] [place] [phone] John Mojica M.D. 06/14/2025 9:45 AM BUILDING PRINCIPAL Office Visit Department of Dermatology in [place], [place] [address] [place] [address] Mar Powell M.D. [address] [place] [phone] documented as of this encounter Visit Diagnoses Not on filedocumented in this encounter Care Teams Environmental Services Assistant Relationship Specialty Start Date End Date Elsewhere, Pcp PCP - General Family Medicine 11/07/20 documented as of this encounter
--- OUTSIDE RECORDS SUMMARY | 2025-03-23 18:10 | XMS_ITS | Encounter Summary ---
Author Organization [facility] Address [address] [place] [address] Care Team Providers Care Local Government Legislator Name Role Phone Elsewhere, Pcp Primary Care Provider Unavailabl e Encounter Details Date Type Department Care Team (Late st Contact Info) Description 02/04/2025 CPAP Download Remote Patient Monitoring [facility] [address] [place] [phone] [facility], Provider, Social History Tobacco Use Types Packs/Day Years Used Date Smoking Tobacco: Never Passive Smoke Exposure: Never Smokeless Tobacco: Never Comments:Not Alcohol Use Standard Drinks/Week Comments Yes 1 (1 standard drink = 0.6 oz pur e alcohol) 1 Glass of wine twice a month. [facility] Utilities Answer Date Recorded In the past 12 months has e [employer], gas, oil, or water [employer] threatened to shut off services in your [...] your living situation today? I have a [facility] place to live 08/24/2024 Education Answer Date Recorded What is the highest level of school you have completed or the highest degree you have received? Master's degree (e.g., MA, MS, Pamela, MEd, SILVER SPRAY WORKER, LAUREN) 01/30/2019 Sex and Gender Information Value Date Recorded Sex Assigned at Male 01/29/2018 9:39 PM CDT Legal Sex Male 5:18 AM INSPECTOR PRINTED CIRCUIT BOARDS Gender Identity Male 01/29/2018 9:39 PM CDT Sexual Orientation Straight 01/29/2018 9: 39 PM CDT documented as of this encounter Plan of Treatment Upcoming Encounters Date Type Department Care Team (Latest Contact Info) Description 05/06/2025 9:00 AM INSPECTOR PRINTED CIRCUIT BOARDS Office Visit Department of Orthopedic Surgery in [place], [place] [address] [place] [phone] Ronan Lew, MPAS, P.A.-C. [address] [place] [phone] 05/17/2025 9:45 AM INSPECTOR PRINTED CIRCUIT BOARDS Clinical Communication Virtual Review in [place], [place] 200 [place] [address] 05/18/2025 11:15 AM INSPECTOR PRINTED CIRCUIT BOARDS Office Visit Department of Vascular Medicine in [place], [place] [address] [place] [phone] John Mojica M.D. 06/14/2025 9:45 AM INSPECTOR PRINTED CIRCUIT BOARDS Office Visit Department of Dermatology in [address] [place] [phone] Mar Powell M.D. [address] [place] [phone] documented as of this encounter Visit Diagnoses Not on filedocumented in this encounter Care Teams Local Government Legislator Relationship Specialty Start Date End Date Elsewhere, Pcp PCP - General Family Medicine 11/07/20 documented as of this encounter
--- OUTSIDE RECORDS SUMMARY | 2025-03-23 18:10 | XMS_ITS | Clinical Summary ---
Author Organization [facility] Address [address] [place] [address] Care Team Providers Care Pugger Helper Name Role Phone Elsewhere, Pcp Primary Care Provider Unavailabl e Source Comments Patient records contain information from all sites at [facility]. For routine questions regarding patient records, call [phone] during business hours, M-F 8:00 AM - 5:00 PM Central Time. Record requests for emergency care only can be directed to [phone] at any time.[facility] Allergies Active Allergy Reactions Criticality Noted Date Comments Cat Dander Wheezing (Reselect Reaction) Medium 11/01/2011 Eyes water, face puffs up, tearing . Medications * This document contains information received from the source organization and may not represent a complete record from that organization. calcium carbonate (OS-STANLEY) 1,250 mg (500 mg calcium) tablet Take 500 mg of calcium by mouth 2 (two) times a day with meals. Takes with breakfast and lunch. 012 Active ascorbic acid, vitamin C, (VITAMIN C) 500 mg tablet Take 1 tablet by mouth 2 (two) times a day. 009 Active vitamin E acetate (VITAMIN E ORAL) Take 1 tablet by mouth once a week. Saturday 180 mg 009 Active DME Ostomy suppliesIndica tions:Colitis Ulcerative (HCC) DME Order 1 Unspecified 11 022 Active metoprolol tartrate (LOPRESSOR) 25 mg tablet Take 0.5 tablets (12.5 mg total) by mouth 2 (two) times a day. 90 tablet 07/08/2 022 Active folic acid 1 mg tablet Take 1 tablet (1,000 mcg total) by mouth daily 90 tablet 3 022 Active omeprazole (PriLOSEC) [address] capsule Take 1 capsule by mouth four times weekly: Saturday, Saturday, Saturday, Saturday 48 capsule 023 Active Additional Information Patient taking differently: 4 times per week, Reported on 02/08/2025 DME Ostomy suppliesIndica tions:Ileostom y Status (HCC) DME Order 1 Unspecified 11 023 Active iron,carbonyl- vitamin C (VITRON-C) 65 mg iron- [address] tablet Take 1 tablet (65 mg of iron total) by mouth daily. Do not crush or chew. 90 tablet 3 023 Active Additional Information Patient taking differently:65 mg of iron oral4 times weekly, Do not crush or chew., Reported on 02/08/2025 multivitamin-m vkjiixw-LQ-xjt ein (CENTRUM SILVER) 400-250 mcg per chewable tablet Chew 1 tablet daily. Active atorvastatin (LIPITOR) 10 mg tablet Take 0.5 tablets by mouth daily. 023 Active DME Ostomy suppliesIndica tions:Ileostom y Status (HCC) DME Order 1 Unspecified Active Additional Information Patient not taking.Reported on 02/08/2025 DME CPAPIndication s:Apnea Sleep Obstructive DME Order 1 each Active budesonide-for moteroL (Symbicort) 160-4.5 mcg/actuation inhaler Inhale 2 (two) times a day. 024 Active calcium carbonate-beatrice min D3 625 mg (250 mg calcium)-3.125 mcg (125 Unit) per tablet Take 1 tablet by mouth 2 (two) times a day with meals. 024 Active rivaroxaban (Xarelto) 20 mg tablet Take 20 mg by mouth daily with evening meal. 024 Active DME Ostomy suppliesIndica tions:Ileostom y Status (HCC) DME Order 1 Unspecified 11 025 Active cefdinir (Omnicef) 300 mg capsuleIndicat ions:Primary Malignant Neoplasm Of Prostate (HCC) Take 1 capsule (300 mg total) by mouth once for 1 dose. Take 1 hour prior to prostate biopsy 1 capsule 026 2025 Active Additional Information Patient not taking.Reported on 02/08/2025 DME CPAPIndication s:Apnea Sleep Obstructive DME Order 1 each 025 Active acetaminophen (TylenoL) 500 mg tablet Take 1,000 mg by mouth 2 (two) times a day. Active lisinopril-hyd roCHLOROthiazi de (PRINZIDE,ZEST ORETIC) 10-12.5 mg per tablet Take 1 tablet by mouth daily. Was held during hospital stay 10/24/21 through 12/01/21. 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 09/13/2021 Overview (11/03/2021): Added automatically from request for surgery [id number] Malignant Neoplasm Of Sigmoid Colon 08/16/2021 Dysplasia [...] Steatohepatitis Non Alcoholic 12/13/2004 Asthma NOS 01/05/2004 Resolved Problems Problem Noted Date Diagnosed Date Resolved Date Deficiency Iron 02/05/2019 02/04/2020 Pain Foot Right 02/04/2019 02/04/2020 Primary Malignant Neoplasm Of Prostate 08/03/2016 02/04/2020 Asthma Chronic 02/13/2016 02/05/2019 Encounters Date Type Department Care Team Description 03/23/2025 Orders Only Department of Dermatology in [place], [place] [address] [place] [phone] Harmony De León M.D. 03/22/2025 Clinical Communication Department of Dermatology in [place], [place] [address] [place] [phone] Harmony De León M.D. 03/07/2025 CPAP Download Remote Patient Monitoring [facility] [address] [address] [place] [address] [facility], ProviderMD 03/04/2025 9:30 AM CDT Office Visit Department of Orthopedic Surgery in [place], [place] [address] [place] [phone] Ronan Lew, BRUCE, PLilianaALiliana-C. Dystrophic Toenail (Primary Dx); Callus; Public Housing Manager (Current) Anticoagulant Treatment; Insufficiency Venous Peripheral 02/24/2025 11:30 AM CDT Procedure visit Department of Dermatology in [place], [place] [address] [place] [phone] Harmony De León M.D. Malignant Neoplasm Of Skin Squamous Cell Carcinoma Discharge Disposition: Home or Self Care 02/24/2025 Ancillary Procedure Department of Dermatology 02/16/2025 Clinical Communication Department of Dermatology in [place], [place] [address] [place] [phone] Prescheduling, Provider Appt Request 02/12/2025 Results Follow-Up Department of Dermatology in [place], [place] [address] [place] [phone] Mar Powell M.D. Dermatopathology 02/09/2025 10:20 AM CDT Comprehensive Visit Department of Dermatology in [place], [place] [address] [place] [address] Mar Powell M.D. Dermatoheliosis (Primary Dx); Tumor Ear Skin Uncertain Behavior; Keratosis Seborrheic Inflamed 02/09/2025 10:15 AM CDT Ancillary Procedure Department of Dermatology 02/08/2025 1:00 PM CDT Clinical Communication Virtual Review in [place], [place] [address] [place] [address] Pre-visit Intake 02/04/2025 CPAP Download Remote Patient Monitoring [facility] [address] [place] [address] [facility], Provider, 01/27/2025 Clinical Communication Center for Sleep Medicine in [place], [place] [address] [place] [address] Branden Rodriguez M.D., M.B.A. 01/04/2025 CPAP Download Remote Patient Monitoring [facility] [address] [place] [address] [facility], Provider, 12/29/2024 9:00 AM CDT Office Visit Department of Orthopedic Surgery in [place], [place] [address] [place] [address] Ronan Lew, MPAS, P.A.-C. Dystrophic Toenail (Primary Dx); Callus; Public Housing Manager (Current) Anticoagulant Treatment; Pain Foot Right from Last 3 Months Immunizations Immunization Administration Dates Next Due H1N1 All Forms 05/17/2009 H1N1 Inj 05/17/2009 HZV (ZOSTAVAX) 05/25/2009 HepA, Unspecified 06/22/2014,04/22/2013 HepB Adult 02/07/2021(Deferred: Patient Ref used) HepB, Unspecified 02/07/2021(Deferred: Other) Influenza Split 02/20/2014,02/02/2012,02/01/2011 Influenza TIV (IM) 03/08/2011,02/22/2009 Influenza high dose QV(65 ye ars or older) (PF) 02/14/2021 Influenza, Seasonal, Injectable 03/08/2011,02/22 Influenza, Unspecified 01/31/2018,2014,02/20/2014,2012,02/02/2012,02/01/2011 PCV13 06/22/2014 PPSV23 11/03/2012,05/17/2009,06/03/2007 RZV (SHINGRIX) 09/18/2018, 9,02/04/2018(Deferr ed: Not available from seaman) SARS-COV-2 (COVID-19) - PFIZ ER (Discontinued)(12 years or older) 06/30/2021,01/25/2021 Td (Adult), adsorbed 06/03/2007 Td, (Adult) Unspecified 06/03/2007 Tdap 11/03/2012 TyVi (inj) 05/25/2015,04/22/2013 YF 06/22/2014 Zoster, Unspecified 02/04/2018(Deferred: Other) influenza trivalent high dos e (HD)(PF) 02/25/2019,01/31/2018,02/12/2017,2015,02/08/2015,02/20/2014,02/09/2013 influenza trivalent vaccine (6 months and older)(PF) 02/23/2010,04/18/2005 influenza vaccine quad (FLUZONE/FLUARIX) (6 months and older)(PF) 02/16/2020 Family History Medical History Relation Name Comments Cardiac arrest Brother 1 Stroke Brother 2 Coronary artery disease Brother 3 Desean Calvin Hyperlipidemia (high cholesterol) Brother 3 Desean dodge Hypertension Brother 3 Desean Calvin Prostate cancer Brother 3 Desean Calvin Coronary artery disease Brother 4 Reynaldo Calvin Diabetes Brother 4 Reynaldo Calvin Hyperlipidemia (high cholesterol) Father Gilberto Calvin Hypertension Father Gilberto Calvin Obesity Father Gilberto Calvin Stroke Father Gilberto Calvin Diabetes Mother Diabetes Paternal Grandfather Milan Calvin Diabetes Son 2 Relation Name Status Comments Brother 1 Brother 2 Brother 3 Desean Calvin Brother 4 Reynaldo Calvin Father Gilberto Calvin Mother Paternal Grandfather Milan Calvin Son 1 Alive Son 2 Alive adopted Social History Tobacco Use Types Packs/Day Years Used Date Smoking Tobacco: Never Passive Smoke Exposure: Never Smokeless Tobacco: Never Tobacco Cessation:Counseling Given: Not Answered Comments:Not Alcohol Use Standard Drinks/Week Comments Yes 1 (1 standard drink = 0.6 oz pur e alcohol) 1 Glass of wine twice a month. 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 GATE TENDER Gender Identity Male 01/29/2018 9:39 PM CDT Sexual Orientation Straight 01/29/2018 9: 39 PM CDT Last Filed Vital Signs Vital Sign Reading Time Taken Comments Blood Pressure 137/80 02/24/2025 11:28 AM CDT Pulse 85 02/24/2025 11:28 AM CDT Temperature 36.4 C (97.5 F) 10/19/2022 4:40 PM CDT Respiratory Rate 19 10/19/2022 4:28 PM CDT Oxygen Saturation 94% 10/19/2022 4:28 PM CDT Inhaled Oxygen Concentration - - Weight 112 kg (246 lb 4.1 oz) 05/18/2024 12:45 P M TOLL GATE TENDER Height 185.6 cm (6' 1.07) 05/18/2024 12:45 PM Tisha Body Mass Index 32.43 05/18/2024 12:45 PM TOLL GATE TENDER Plan of Treatment Upcoming Encounters Date Type Department Care Team (Latest Contact Info) Description 05/06/2025 9:00 AM TOLL GATE TENDER Office Visit Department of Orthopedic Surgery in [place], [place] [address] [place] [phone] Roann Lew, OJS, P.A.-C. [address] [place] [phone] 05/17/2025 9:45 AM TOLL GATE TENDER Clinical Communication Virtual Review in [place], [place] [address] [place] [address] 05/18/2025 11:15 AM TOLL GATE TENDER Office Visit Department of Vascular Medicine in [place], [place] [address] [place] [phone] John Mojica M.D. 06/14/2025 9:45 AM TOLL GATE TENDER Office Visit Department of Dermatology in [place], [place] [address] [place] [address] [place] [address] Mar Powell M.D. [address] [place] [phone] Health Maintenance Due Date Last Done Comments Office Visit for Blood Pressure Check / Re-check 1945 Hepatitis B Vaccines (1 of 3 - Risk 3-dose series) 2004 Depression Screening (Annual PHQ-2) 06/03/2024 Fall Risk Screen (Annual) 06/03/2024 COVID-19 Vaccine ( season) 2025 02/25/2024, 03/04/2023, 11/19/2022, Additional history exists Influenza Vaccine (#1) 2025 , 03/04/2023, 02/20/2022, Additional history exists DTaP,Tdap,and Td Vaccines (3 - Td or Tdap) 04/19/2033 04/19/2023, 11/03/2012, 06/03/2007, Additional history exists Hepatitis A Vaccines Completed 06/22/2014, 04/22/20 13 Zoster Vaccines Completed 09/18/2018, 07/04, 05/25/2009 Colonoscopy Discontinued 08/16/2021, 12/2020, 02/04/2019, Additional history exists Colorectal Cancer Surveillance Discontinued RSV vaccine - (32-36 weeks) or 50+ years Completed 03/21/2023 Pneumococcal vaccine (50+ years) Completed 03/27/2024, 06/22/2014, 11/03/2012, Additional history exists CT Colonography Discontinued Cologuard Discontinued IPV Vaccines Aged Out No longer eligi ble based on patient's age to complete this topic Medical Devices Implanted Type Area Director Of Parks And Recreation Device Identifier Shelf Expiration Date Model / Serial / Lot Clp Rsl Endo Lgt [id number] - [id number] Implanted:Qty: 1 on 08/16/2021 by Andrae Peguero M.B.B.S. at [facility] Hardware e.g. pins/screws /rods [employer] [id number] 02/28/2024 [id number] / / [id number] Description:Per Mag Resource MRI conditional up to 3T Normal operating mode Polyp removal [facility] 01/16/2022 Clp Rsl Endo Lgt [id number] - [id number] Implanted:Qty: 1 on 08/16/2021 by Andrae Peguero M.B.B.S. at [facility] Hardware e.g. pins/screws /rods [employer] [id number] 05/08/2024 [id number] / / [id number] Description:Per Mag Resource MRI conditional up to 3T Normal operating mode Polyp removal [facility] 01/16/2022 Clp Rsl Endo Lgt [id number] - [id number] Implanted:Qty: 1 on 08/16/2021 by Andrae Peguero M.B.B.S. at [facility] Hardware e.g. pins/screws /rods [employer] [id number] 05/08/2024 [id number] / / [id number] Description:Per Mag Resource MRI conditional up to 3T Normal operating mode Polyp removal SSG 01/16/2022 Toña Rendon Seprafilm 3x5 - [id number] Implanted:Qty: 1 on 11/03/2021 by Charito Shepard M.D., Ph.D. at [facility] Mesh or [employer] 01/18/2024 [id number] / / [id number] Procedures Procedure Name Priority Date/Time Associated Diagnosis Comments DERMATOLOGY IMAGE EXAM Routine 12:00 AM CDT DERMATOLOGY IMAGE EXAM Routine 10:15 AM CDT DERMATOPATHOLOGY Routine 02/09/2025 10:1 4 AM CDT Tumor Ear Skin Uncertain Behavior COLONOSCOPY Routine 08/16/2021 12:50 PM CDT Colitis Ulcerative (HCC) Dysplasia Colon from Last 3 Months or Most Recently Relevant to Health Maintenance Results * ear, left upper antihelix 121 Mohs micrographic surgery-Dermatology Image Exam (02/24/2025 12:00 AMCDT) Only the most recent of2 resultswithin the time period is included. Narrative [facility] - 02/24/2025 2:36 PM CDT This order has been created and auto-finalized to support the import of images acquired without order. The clinical documentation to support these images can be found on the encounter that produced images. us Provider Not In System IMG NON RAD IMAGING PROCE DURES Final Result [facility] NA * Dermatopathology (02/09/2025 10:14 AM CDT) 02/11/2025 [...] (Left Ear) 02/09/2025 1 0:14 AM CDT Mar Powell M.D. LAB PATH DERM ORDERABLES Final Result [facility] 200 [place] [address], [address] [place] [address] * Colonoscopy (08/16/2021 12:50 PM CDT) Anatomical Region Laterality Modality Digital Radiogra phy 08/16/2021 12:5 0 PM CDT Impressions 08/17/2021 6:40 AM CDT Post-op Diagnoses: - Inactive (Harrison Score 0) ulcerative colitis, in remission. Biopsied. - A tattoo was seen in the proximal sigmoid colon. A post-polypectomy scar was found at the tattoo site. - One 15 mm polyp in the distal sigmoid colon. Clips were placed. Narrative 08/17/2021 6:40 AM CDT [facility] 6 GI GI Patient Name: Kamran Calvin Date of : 1945 Age: 76 Gender: Male Procedure Date: 08/16/2021 Procedure: Colonoscopy Providers: Andrae Steinberg MD, Fritz Painting MD Referring Provider: ASHELY Moss Pre-op Diagnoses: Therapeutic procedure for colon polyps, Follow-up of chronic ulcerative pancolitis Recommendation: - Await pathology results. Findings: Inflammation was not found based on the endoscopic appearance of the mucosa in the colon. This was graded as Harrison Score 0 (normal or inactive disease). Two biopsies were taken every 10 cm with a cold forceps from the entire colon for dysplasia surveillance. These biopsy specimens were sent to Pathology. A tattoo was seen in the proximal sigmoid colon. A post-polypectomy scar was found at the tattoo site, with surrounding adenomatous appearing tissue. A full thickness resection of the scar site and surrounding tissue was performed using the Colonic length Ovesco FTRD device. The snare snapped during closure due to signficant fibrosis in the underlying tissue. Hence, the tissue above the clip was resected using a hot duckbill snare adn the edges trimmed using hot biopsy avulsion. Resection and retrieval were complete. A 15 mm polyp was found in the distal sigmoid colon. The polyp was flat. To prevent bleeding after the polypectomy, three hemostatic clips were successfully placed. There was no bleeding during, or at the end, of the procedure. Procedural Details: The patient was seen, evaluated, history reviewed, airway and heart-lung exams were performed by licensed provider and were satisfactory for planned level of sedation care. The risks, benefits and alternatives for the procedure and sedation were discussed and informed consent was obtained. A procedural pause was conducted in the presence of assisting personnel to verify the correct patient identity and procedure to be performed. Throughout the procedure, the patient's blood pressure, pulse, and oxygen saturations were monitored continuously. The Pediatric Colonoscope was introduced under direct vision through the anus and advanced to the cecum, identified by appendiceal orifice and ileocecal valve. The colonoscopy was technically difficult and complex due to inadequate bowel prep. The quality of the bowel preparation was evaluated using the BBPS ([place] Bowel Preparation Scale) with scores of: Right Colon = 1 (portion of mucosa seen, but other areas not well seen due to staining, residual stool and/or opaque liquid), Transverse Colon = 1 (portion of mucosa seen, but other areas not well seen due to staining, residual stool and/or opaque liquid) and Left Colon = 1 (portion of mucosa seen, but other areas not well seen due to staining, residual stool and/or opaque liquid). The total BBPS score equals 5. The quality of the bowel preparation was fair. Estimated Blood Loss: Estimated blood loss was minimal. Complications: No immediate complications. Sedation: Anesthesia was administered by an anesthesia professional. The following parameters were monitored: oxygen saturation, heart rate, blood pressure, respiratory rate, EKG, adequacy of pulmonary ventilation, and response to care. Attending Participation: I was present and participated during the entire procedure, including non-sandoval portions. Andrae Steinberg MD 08/16/2021 1:09:10 PM Number of Addenda: 0 Abimbola Warner P.A.-C. GI PROCEDURE ORDERABL ES Edited Result - Final from Last 3 Months or Most Recently Relevant to Health Maintenance [place] [address] MEDICARE MEDICA Advance Directives For more information, please contact: [phone] Documents on File Type Date Recorded Patient Ditch Inspector Expl anation Advance Directives 07/13/2016 12:00 AM Leg acy document. See document viewer. * Full Code (Latest Code Status on File) Date Activated Date Inactivated Comments 12/01/2021 3:14 PM 12/08/2021 1:43 PM Question Answer Comments Full Code: Discussed * Full Code Date Activated Date Inactivated Comments 10/24/2021 5:59 PM 12/01/2021 12:22 PM Question Answer Comments Full Code: Discussed * Full Code Date Activated Date Inactivated Comments 10/24/2021 6:31 AM 10/24/2021 5:59 PM Question Answer Comments Full Code: Discussed Care Teams Pugger Helper Relationship Specialty Start Date End Date Elsewhere, Pcp PCP - General Family Medicine 11/07/20
--- OUTSIDE RECORDS SUMMARY | 2025-03-23 18:10 | XMS_ITS | Encounter Summary ---
Author Organization [facility] Address [address] [place] [address] Care Team Providers Care Refueler Name Role Phone Elsewhere, Pcp Primary Care Provider Unavailabl e Reason for Referral * Outpatient (Routine) - Authorized Specialty Diagnoses / Procedures Referred By Nicol t Referred To Contact Sleep Medicine Erum Azul M.D. [address] [place] [phone] Phone: tel: fax: [facility] Referral ID Status Reason Start Date Expiration Date V isits Requested Visits Authorized [id number] Authorized 01/27/2025 07/29/2026 1 1 Scheduling Instructions 3 yr appointment Encounter Details Date Type Department Care Team (Late st Contact Info) Description 01/27/2025 Clinical Communication [facility] in [place], [place] [address] [place] [phone] Branden Rodriguez M.D., M.B.A. [address] [place] [phone] Social History Tobacco Use Types Packs/Day Years Used Date Smoking Tobacco: Never Passive Smoke Exposure: Never Smokeless Tobacco: Never Comments:Not Alcohol Use Standard Drinks/Week Comments Yes 1 (1 standard drink = 0.6 oz pur e alcohol) 1 Glass of wine twice a month. [facility] Utilities Answer Date Recorded In the past 12 months has th e [employer], gas, oil, or water company threatened to [...] living situation today? I have a [facility] place to live 08/24/2024 Education Answer Date Recorded What is the highest level of school you have completed or the highest degree you have received? 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 Calvin is currently well established and stable in management of PAP therapy for the managementof sleep disordered breathing. CPAP prescription renewal generated per protocol [id number]. The prescription will be sent to [facility]. * Telephone Encounter - Linda Dow R.N. - 01/27/2025 2:05 PM CDT Kamran Calvin continues to have a medical condition for which PAP is medically indicated. The replacement of accessories is medically necessary and essential to use PAP effectively. Cosigned by Erum Azul M.D. at 01/27/2025 2:09 PM CDT documented in this encounter Plan of Treatment Upcoming Encounters Date Type Department Care Team (Latest Contact Info) Description 05/06/2025 9:00 AM RAILROAD CAR REPAIR SUPERVISOR Office Visit Department of Orthopedic Surgery in [place], [place] [address] [place] [phone] Ronan Lew, MPAS, P.A.-C. [address] [place] [phone] 05/17/2025 9:45 AM RAILROAD CAR REPAIR SUPERVISOR Clinical Communication Virtual Review in [place], [place] [address] [place] [phone] 05/18/2025 11:15 AM RAILROAD CAR REPAIR SUPERVISOR Office Visit Department of Vascular Medicine in [place], [place] [address] [place] [phone] John Mojica M.D. 06/14/2025 9:45 AM RAILROAD CAR REPAIR SUPERVISOR Office Visit Department of Dermatology in [address] [place] [phone] Mar Powell M.D. [address] [place] [address] Scheduled Referrals Name Type Priority Associated Diagnoses Orde r Schedule Sleep Medicine nurse visit (clinic) Outpatient Referral Routine Expected: 01/27/2026, Expires: 04/29/2026 documented as of this encounter Visit Diagnoses Diagnosis Apnea Sleep Obstructive- Primary documented in this encounter Care Teams Refueler Relationship Specialty Start Date End Date Elsewhere, Pcp PCP - General Family Medicine 11/07/20 documented as of this encounter
--- OUTSIDE RECORDS SUMMARY | 2025-03-23 18:10 | XMS_ITS | Encounter Summary ---
Author Organization [facility] Address [address] [place] [address] Care Team Providers Care Tree And Shrub Technician Name Role Phone Elsewhere, Pcp Primary Care Provider Unavailabl e Reason for Visit * Reason Onset Date Comments Appt Request 02/16/2025 Encounter Details Date Type Department Care Team (Late st Contact Info) Description 02/16/2025 Clinical Communication Department of Dermatology in [place], [place] [address] [place] [address] Prescheduling, Provider Appt Request Social History Tobacco Use Types Packs/Day Years Used Date Smoking Tobacco: Never Passive Smoke Exposure: Never Smokeless Tobacco: Never Comments:Not Alcohol Use Standard Drinks/Week Comments Yes 1 (1 standard drink = 0.6 oz pur e alcohol) 1 Glass of wine twice a month. [facility] Utilities Answer Date Recorded In the past 12 months has [facility] [employer], gas, oil, or water [employer] threatened to shut off services in your [...] your living situation today? I have a [facility] place to live 08/24/2024 Education Answer Date Recorded What is the highest level of school you have completed or the highest degree you have received? Master's degree (e.g., MA, MS, Pamela, MEd, ESL INSTRUCTIONAL ASSISTANT, LAUREN) 01/30/2019 Sex and Gender Information Value Date Recorded Sex Assigned at Male 01/29/2018 9:39 PM CDT Legal Sex Male 5:18 AM CARPENTER HELPER Gender Identity Male 01/29/2018 9:39 PM CDT Sexual Orientation Straight 01/29/2018 9: 39 PM CDT documented as of this encounter Plan of Treatment Upcoming Encounters Date Type Department Care Team (Latest Contact Info) Description 05/06/2025 9:00 AM CARPENTER HELPER Office Visit Department of Orthopedic Surgery in [place], [place] [address] [place] [phone] Ronan Lew, MPAS, P.A.-C. [address] [place] [phone] 05/17/2025 9:45 AM CARPENTER HELPER Clinical Communication Virtual Review in [place], [place] [address] [place] [address] 05/18/2025 11:15 AM CARPENTER HELPER Office Visit Department of Vascular Medicine in [place], [place] [address] [place] [phone] John Mojica M.D. 06/14/2025 9:45 AM CARPENTER HELPER Office Visit Department of Dermatology in [place], [place] [address] [place] [address] Mar Powell M.D. [address] [place] [address] documented as of this encounter Visit Diagnoses Not on filedocumented in this encounter Care Teams Tree And Shrub Technician Relationship Specialty Start Date End Date Elsewhere, Pcp PCP - General Family Medicine 11/07/20 documented as of this encounter
[2025-03-23 18:26] LABS: Appearance Urine Clear (Clear)
--- NOTE | 2025-03-23 22:03 | CRLHL7_ITS ---
For Patients: As a result of the Century Cures Act, medical imaging exams and procedure reports are released immediately into your electronic medical record. You may view this report before your referring provider. If you have questions, please contact your health care provider. Indication: NG tube placement Technique: Single view of the abdomen Comparison: Same day CT abdomen and pelvis Findings/Impression: Enteric tube terminates in the body of the stomach, side hole distal to the GE junction. Dilated loops of small bowel again demonstrated. Dictated by Ifeanyi Sommer MD @ 03/23/2025 10:42:42 PM (Electronically Signed)
--- NOTE | 2025-03-23 22:51 | ED.NURSE ---
pt had episode of vomiting. Emptied colostomy bag. Colostomy product missed basin. Pt cleaned, gown changed, bedding changed.
[2025-03-24] VITALS (8 sets, daily range): BP systolic 119–136; BP diastolic 68–88; PULSE 95–117; RESP 16–17; TEMP 36.8–37.1; O2SAT 90–93; BMI 32.0
--- NOTE | 2025-03-24 00:39 | W.PM.TELEH&P ---
Telehealth- H&P: HPI History of Present Illness Time Seen by Provider: 02:40 Date Seen: 03/24/25 Chief complaint: Unspecified complaint Narrative: Kamran Calvin is seen as an Interactive Telehealth visit. Kamran Calvin is a 79 year old male who h/o Ulcerative colitis, recurrent DVT who presents with decreased ostomy output, nausea. Starting on Saturday or one day prior to admission, patient noticed stomach pain and change in his ostomy output. He reports he did not have the usual type of ostomy drainage. Rather than having a more formed drainage, patient had liquid only. He had worsening pain and decreased drainage the following day. Due to pain, his po intake decreased. He decided to come to the ED for further investigation. he was diagnosed with SBO and NG tube was placed. His pain improved with NG tube placement. OF note, over the past year patient has intermittent episodes of blood draining from rectum and/or from his ostomy +headache no dizziness except while in ED this evening no chest pain +nausea/vomiting while in the ED no edema in extremities +arthritis worse on RLE no edema in legs per patient but does wear compression stockings Abdominal films showed SBO. Patient had colectomy completed at [facility] several years ago [facility] were contacted and recommended patient to be managed nonoperatively at this point. Our surgeon was made aware If any changes patietn will be transferred to [place] In the meantime, NG tube was placed and surgery will see in AM Review of Systems Status of ROS: Reports: 10 or more systems reviewed and unremarkable except as noted in History and below [facility] Social History What is your current living situation?: I presently have a place to live Problems where you live: no known problems Problems where you live details: n/a In the past 12 months, utilities in danger of being shut off: no In past 12 months, lack of transportation kept you from medical appts, meetings, work, or getting things needed for daily living: no In the past 12 mos, have been you worried that your food would run out before you had money to buy more?: never true In the past 12 mos, the food you bought just didn't last and you didn't have money to buy more?: never true Smoking Status: Never smoker Do you use any of these nicotine containing products: None Second hand tobacco smoke exposure: No How often do you have a drink containing alcohol: 2-4 times a month How many standard drinks containing alcohol do you have on a typical day: 1 or 2 How often do you have six or more drinks on one occasion: Never AUDIT-C Alcohol total score: 2 Non-prescribed substance use: denies use How often does anyone, including family, friends and others, physically hurt you: never How often does anyone, including family, friends and others, insult or talk down to you: never How often does anyone, including family, friends and others, threaten you with harm: never How often does anyone, including family, friends and others, scream or curse at you: never service: Yes Meds Home Medications and Allergies Home Medications ?Medication ?Instructions ?Recorded ?Confirmed ?Type atorvastatin 10 mg tablet 5 mg PO QPM 11/07/24 11/07/24 History fluticasone 250 mcg-salmeterol 50 1 ea inhalation BID 11/07/24 11/07/24 History mcg/dose blistr powdr for inhalation fluticasone propionate 50 spray intranasal 11/07/24 11/07/24 History mcg/actuation nasal spray,suspension folic acid 1 mg tablet 1 mg PO DAILY 11/07/24 11/07/24 History metoprolol tartrate 25 mg tablet 25 mg PO DAILY 11/07/24 11/07/24 History omeprazole 40 mg capsule,delayed 40 mg PO 11/07/24 11/07/24 History release rivaroxaban 20 mg tablet (Xarelto) 20 mg PO QDAY 11/07/24 11/07/24 History Allergies Allergy/AdvReac Type Severity Reaction Status Date / Time cat dander Allergy Verified 11/07/24 09:57 Exam Narrative Exam Narrative: Physical Exam GENERAL: ?vital signs reviewed, well developed and nourished, in no distress HEENT: pupils are equal round and reactive to light, extraocular movements are grossly within normal limits and oral mucosa is moist. +LAD on left side without tenderness NECK: Supple without lymphadenopathy or thyromegaly according to nursing staff examination observation HEART: irreg irreg S1+ S2+ no g/m/r LUNGS: Clear to auscultation bilaterally with good air movement throughout ABDOMEN: Observation from nurse assisted exam, BS present likely due to suction from NG, Soft, ND,NT EXTREMITIES:venous stasis changes, + pitting edema bilaterally pulses intact; SKIN:? Observed warm and dry with color normal Const Vital Signs, click to edit/add: Vital Signs - 24 hr 03/23/25 15:41 03/23/25 17:08 03/23/25 17:15 Temperature 97.7 F Pulse Rate 104 H 106 H Pulse Rate [Pulse Oximeter] 104 H Respiratory Rate 18 Blood Pressure Blood Pressure [Right Upper Arm] 160/103 H Pulse Oximetry 92 88 92 Oxygen Delivery Method Room Air 03/23/25 18:05 03/23/25 18:06 03/23/25 19:32 Temperature Pulse Rate 102 H 100 Pulse Rate [Pulse Oximeter] Respiratory Rate 16 16 Blood Pressure 123/66 Blood Pressure [Right Upper Arm] Pulse Oximetry 95 89 Oxygen Delivery Method 03/23/25 19:57 Temperature Pulse Rate Pulse Rate [Pulse Oximeter] Respiratory Rate Blood Pressure Blood Pressure [Right Upper Arm] 136/86 Pulse Oximetry Oxygen Delivery Method Hospitalist - H&P: Result Labs Labs: Short CBC 03/23/25 Range/Units 16:45 WBC 13.60 H (4.50-11.00) K/uL Hgb 16.2 (13.5-17.5) gm/dL Hct 49.6 (37.0-53.0) % Plt Count 236 (140-440) K/uL BMP 03/23/25 16:45 Sodium 139 Potassium 4.2 Chloride 98 Carbon Dioxide 24 BUN 16 Creatinine 1.2 Glucose 125 H Calcium 10.1 Liver Function 03/23/25 Range/Units 16:45 Total Bilirubin 1.4 (0.1-1.5) mg/dL AST 35 (12-35) U/L ALT 27 (4-50) U/L Alkaline Phosphatase 72 (40-150) U/L Albumin 4.8 (3.3-5.0) g/dL Urine 03/23/25 Range/Units 18:08 Urine Color Yellow (Yellow) Urine Appearance Clear (Clear) Urine pH 5.0 (5.0-8.5) Ur Specific [place] 1.010 (1.000-1.030) Urine Protein Negative (Negative) Urine Glucose (UA) Negative (Negative) Imaging CT Chest/Ab/Pelvis: Radiologist's impression: Lung bases: Bibasilar atelectasis. Calcified granuloma in the left lower lobe. Bibasilar scarring is similar to prior. Liver: Normal. No mass. Gallbladder and bile ducts: Minimal layering sludge or tiny gallstones in the gallbladder lumen. No cholecystitis. No bile duct dilation. Pancreas: Normal. Spleen: Normal. Adrenal glands: Normal. Kidneys: Normal parenchyma. No cyst or solid mass. No calculi. No urinary tract dilation. Urinary bladder: Partially filled. Pelvis: Borderline prostatomegaly. Vessels: Atherosclerosis. No aortic aneurysm. Patent mesenteric arteries and veins. Bowel: Postop proctocolectomy. There is some irregular soft tissue in the presacral space that measures 3 x 3.9 cm and has some central fluid density. Similar overall size compared to 08/01/2022. The distal esophagus is fluid-filled. The stomach is filled with a large amount of food and fluid. The small bowel is diffusely dilated. There are a couple of transition point associated with a small bowel suture line in the left mid abdomen. There also transition points were the bowel passes through the abdominal wall. There is a parastomal hernia. Dilated bowel measures up to 4 centimeters in diameter. There is diffuse bowel hyperemia without bowel wall thickening. There is some adjacent ascites in the right abdomen. No abscess or phlegmon. Lymph nodes: No adenopathy. Peritoneum: No ascites. Abdominal wall: Parastomal hernia. Bones: No fractures. No focal worrisome bone lesions. IMPRESSION: 1. Small bowel obstruction. There are several transition points. There are at least 2 transition points near the suture line in the left anterior abdomen that are probably adhesive. There is an additional transition point at the parastomal hernia. No perforation or ischemia. 2. Similar soft tissue in the presacral space. Assessment and Plan Assessment and plan (1) Small bowel obstruction: Status: Acute Assessment and Plan: 79y/o M h/o ulcerative colitis s/p ostomy surgery 3 years ago prsents with abodminal pain secondary to SBO --pain control --NPO except ice chips and sips --IVF --consult general surgery --monitor I/O's --continue NG tube to LIS (patient had his ostomy placed at [facility]. [facility] surgery was contacted in ED. They would manage nonsurgically and recommend we do the same. Our surgoen was made aware and will follow patient/see in the morning. If anything changes, patient may need to transfer to [facility] irreg HR on exam: obtained an EKG reviewed EKG which shows atrial fibrillation with rate control but per discussion with nursing and review of chart patient has atrial fibrillation with RVR --administer metoprolol --administer IVF --for tonight goal HR is 110's --obtain an echocardiogram --patient qualifies for anticoagulation; need to reconcile meds and determine if patient still takes an oral anticoagulant (xarelto), if so will restart medication. If not, will start and monitor for rectal and ostomy bleed Full code per discussion Plan see above Total Time Spent Total Time Spent: 240a-312a Telehealth: Statement Statement Telehealth Visit: Today's History and Physical is provided via interactive telehealth by Camille Bond MD.? Patient is located at [facility].? Provider is located at [facility].? Nursing staff assisted with the patient's exam. The visit being done today meets criteria for a telehealth visit and the patient or patient?s parent/guardian is aware the visit is a telehealth visit. Camera Start Time: 02:40 Camera End Time: 03:12
--- NOTE | 2025-03-24 01:03 | ED.NURSE ---
first canister output 1000cc. second canister output 700cc.
--- NOTE | 2025-03-24 01:23 | ED.NURSE ---
Rn to Rn report given. pt going to room 280 via tech
[2025-03-24] MEDS: METOPROLOL TARTRATE 1 MG/ML inj 5 MG IVP ×4 (04:22→22:01)
[2025-03-24] MEDS: ACETAMINOPHEN INJ 1,000 MG/100 ML VIAL 400 MG IVPB (04:24)
[2025-03-24] MEDS: 5 % DEXTROSE/0.45% SOD CHLOR 1,000 ML 75 ML IV (04:25)
--- NOTE | 2025-03-24 06:27 | PC.NURSE ---
Shift note ([id number]): Patient admitted from ED at?0130. Pleasant, alert and oriented. Cooperative with cares. Pivot transferred with assist of one from ED bed to room bed. Given scheduled Tylenol for pain in abdomen rated 1/10 and a headache rated 4/10. Given sips and ice chips. Total output from NG tube 500mL of brown drainage. HR elevated between 117-145 during admission. Andrew ZAVALA updated during admission. EKG and Tele showed A-Fib with RVR. New orders given.?HR 108 at this time. ?
[2025-03-24 07:48] LABS: HCO3 VBG 24 mmol/L (21-28); Lactate* 2.2 mmol/L (0.5-1.9); PCO2 VBG 36 mmHG (40-50); PO2 VBG 55.2 mmHG (25-47); pH VBG 7.434 (7.32-7.43)
[2025-03-24 07:54] LABS: Hematocrit* 43.9 % (37.0-53.0); Hemoglobin* 14.8 gm/dL (13.5-17.5); Immature Granulocytes Abs Auto 0.01 K/uL (0.00-0.30); Immature Granulocytes Pct Auto 0.1 %; Lymphocytes Absolute Auto 0.70 K/uL (0.90-2.90); Mean Corpuscular HGB Conc 34 gm/dL (32-36); Mean Corpuscular Hemoglobin 31 pg (26-34); Mean Corpuscular Volume 93 fL (80-100); RDW Coefficient of Variation % 14.2 % (11.5-15.5); Red Blood Count* 4.71 m/uL (4.30-5.90); White Blood Count* 10.40 K/uL (4.50-11.00)
[2025-03-24] MEDS: dilTIAZem 5 MG/ML inj 10 MG IVP ×2 (07:57→18:14)
[2025-03-24 07:59] LABS: Slide Review Reflex No
[2025-03-24 08:09] LABS: Albumin* 4.2 g/dL (3.3-5.0); Chloride* 102 mmol/L (96-114)
[2025-03-24 08:10] LABS: INR 1.33 (0.91-1.10); Potassium* 4.0 mmol/L (3.6-5.1); Prothrombin Time 17.4 Seconds; Sodium* 137 mmol/L (135-149)
[2025-03-24 08:12] LABS: Blood Urea Nitrogen* 19 mg/dL (7-30); Creatinine* 1.2 mg/dL (0.5-1.5); Est. Creatinine Clearance* 55.49; Estimated Glomerular Filt Rate 61 ml/min
[2025-03-24 08:13] LABS: Alanine Aminotransferase* 33 U/L (4-50); Alkaline Phosphatase* 59 U/L (40-150); Anion Gap 11 mEq/L (7-15); Aspartate Amino Transferase* 36 U/L (12-35); Bilirubin Direct* 0.3 mg/dL (0.0-0.5); Bilirubin Total* 1.5 mg/dL (0.1-1.5); Calcium* 9.0 mg/dL (8.4-10.6); Carbon Dioxide* 24 mmol/L (20-32); Glucose* 130 mg/dL (60-115); Total Protein* 7.4 g/dL (6.0-8.3)
[2025-03-24] MEDS: PERFLUTREN LIPID MICROSPHERES 2 ML VIAL IVP (11:17)
[2025-03-24] MEDS: SODIUM CHLORIDE 0.9 % (FLUSH) 10 ML SYRINGE 5 ML IVF ×2 (11:18→20:58)
[2025-03-24] MEDS: ENOXAPARIN 100 MG/ML INJ SUBCUT ×2 (11:37→20:58)
--- NOTE | 2025-03-24 15:31 | PM.GSCN ---
History of Present Illness Consult details Date Seen: 03/24/25 Consult date: 03/24/25 Narrative: Patient presented to the emergency department for nausea, vomiting and decreased output from his ostomy. He has a history of ulcerative colitis. Three years ago he was diagnosed with colon cancer and underwent a total colectomy with end ileostomy. That has been his only abdominal surgery. On Saturday he noticed a decreased output from his ostomy bag, which was only liquid. On Saturday he started to feel nauseous, vomited and again only had liquid output from his ostomy bag. He started to have some abdominal pain, which is what brought him into the emergency department. He has never had anything like this before. In the emergency department they placed an NG tube. He says that this quickly filled up an entire canister, but relieved his nausea. Today he denies any bloating or abdominal pain. His ostomy is putting out much more liquid and gas. He has not had any solid stools. He is feeling hungry. Review of Systems Status of ROS: Reports: 10 or more systems reviewed and unremarkable except as noted in History and below PFSH PFS Social History What is your current living situation?: I presently have a place to live Problems where you live: no known problems Problems where you live details: n/a In the past 12 months, utilities in danger of being shut off: no In past 12 months, lack of transportation kept you from medical appts, meetings, work, or getting things needed for daily living: no In the past 12 mos, have been you worried that your food would run out before you had money to buy more?: never true In the past 12 mos, the food you bought just didn't last and you didn't have money to buy more?: never true Smoking Status: Never smoker Do you use any of these nicotine containing products: None Second hand tobacco smoke exposure: No How often do you have a drink containing alcohol: 2-4 times a month How many standard drinks containing alcohol do you have on a typical day: 1 or 2 How often do you have six or more drinks on one occasion: Never AUDIT-C Alcohol total score: 2 Non-prescribed substance use: denies use How often does anyone, including family, friends and others, physically hurt you: never How often does anyone, including family, friends and others, insult or talk down to you: never How often does anyone, including family, friends and others, threaten you with harm: never How often does anyone, including family, friends and others, scream or curse at you: never service: Yes Meds Home Medications and Allergies Home Medications ?Medication ?Instructions ?Recorded ?Confirmed ?Type atorvastatin 10 mg tablet 5 mg PO QPM 11/07/24 03/24/25 History folic acid 1 mg tablet 1 mg PO DAILY 11/07/24 03/24/25 History metoprolol tartrate 25 mg tablet 12.5 mg PO BID 11/07/24 03/24/25 History omeprazole 40 mg capsule,delayed 40 mg PO .MOWEFRSU@11/07/24 03/24/25 History release rivaroxaban 20 mg tablet (Xarelto) 20 mg PO QDAY 11/07/24 03/24/25 History budesonide-formoterol HFA 160 1 puff inhalation BID 03/24/25 03/24/25 History mcg-4.5 mcg/actuation aerosol inhaler (Breyna) Allergies Allergy/AdvReac Type Severity Reaction Status Date / Time cat dander Allergy Verified 11/07/24 09:57 Exam Narrative: Exam Narrative: General: Alert and oriented, no acute distress Respiratory: Equal breath rise bilaterally, maintained on room air CV: Well perfused Abdomen: Soft, nontender and nondistended. HEENT: NG tube in place, minimal spit like output within tube. Const: Vital Signs, click to edit/add: Vital Signs - 24 hr 03/23/25 15:41 03/23/25 17:08 03/23/25 17:15 Temperature 97.7 F Pulse Rate 104 H 106 H Pulse Rate [Pulse Oximeter] 104 H Respiratory Rate 18 Blood Pressure Blood Pressure [Le ft Arm] Blood Pressure [Ri ght Upper Arm] 160/103 H Pulse Oximetry 92 88 92 Oxygen Delivery Me thod Room Air 03/23/25 18:05 03/23/25 18:06 03/23/25 19:32 Temperature Pulse Rate 102 H 100 Pulse Rate [Pulse Oximeter] Respiratory Rate 16 16 Blood Pressure 123/66 Blood Pressure [Le ft Arm] Blood Pressure [Ri ght Upper Arm] Pulse Oximetry 95 89 Oxygen Delivery Me thod 03/23/25 19:57 03/24/25 01:38 03/24/25 02:24 Temperature 98.2 F Pulse Rate Pulse Rate [Pulse Oximeter] 117 H Respiratory Rate 17 Blood Pressure Blood Pressure [Le ft Arm] 129/83 Blood Pressure [Ri ght Upper Arm] 136/86 Pulse Oximetry 91 93 Oxygen Delivery Me thod Room Air Room Air 03/24/25 04:50 03/24/25 07:00 03/24/25 07:00 Temperature 98.2 F Pulse Rate 107 H Pulse Rate [Pulse Oximeter] 106 H 106 H Respiratory Rate 16 16 Blood Pressure Blood Pressure [Le ft Arm] 129/74 Blood Pressure [Ri ght Upper Arm] Pulse Oximetry 93 Oxygen Delivery Me thod Room Air 03/24/25 11:00 Temperature 98.2 F Pulse Rate Pulse Rate [Pulse Oximeter] 110 H Respiratory Rate 16 Blood Pressure Blood Pressure [Le ft Arm] 121/88 Blood Pressure [Ri ght Upper Arm] Pulse Oximetry 93 Oxygen Delivery Me thod Room Air Results Labs Labs: Abnormal lab results 03/23/25 03/23/25 03/23/25 Range/Units 16:34 16:45 18:08 WBC 13.60 H (4.50-11.00) K/uL Neut % (Auto) 83.5 H (42.0-72.0) % Lymph % (Auto) 9.3 L (20-44) % Desha % (Auto) (0.0-11.0) % Neut # (Auto) 11.40 H (1.7-7.0) K/uL Lymph # (Auto) (0.90-2.90) K/uL Desha # (Auto) (0.00-0.90) K/UL INR (0.91-1.10) VBG pH (7.32-7.43) VBG pCO2 (40-50) mmHG VBG pO2 (25-47) mmHG Anion Gap 17 H (7-15) mEq/L Glucose 125 H (60-115) mg/dL Lactate (0.5-1.9) mmol/L AST (12-35) U/L C-Reactive Protein (0.5-1.0) mg/dL Total Protein 8.8 H (6.0-8.3) g/dL Ur Leukocyte Esterase Trace A (Negative) Urine Bacteria Few A (None) POC Creatinine 1.4 H (0.6-1.3) mg/dl 03/24/25 Range/Units 07:44 WBC (4.50-11.00) K/uL Neut % (Auto) 81.7 H (42.0-72.0) % Lymph % (Auto) 6.7 L (20-44) % Desha % (Auto) 11.3 H (0.0-11.0) % Neut # (Auto) 8.50 H (1.7-7.0) K/uL Lymph # (Auto) 0.70 L (0.90-2.90) K/uL Desha # (Auto) 1.20 H (0.00-0.90) K/UL INR 1.33 H (0.91-1.10) VBG pH 7.434 H (7.32-7.43) VBG pCO2 36 L (40-50) mmHG VBG pO2 55.2 H (25-47) mmHG Anion Gap (7-15) mEq/L Glucose 130 H (60-115) mg/dL Lactate 2.2 H (0.5-1.9) mmol/L AST 36 H (12-35) U/L C-Reactive Protein 6.1 H (0.5-1.0) mg/dL Total Protein (6.0-8.3) g/dL Ur Leukocyte Esterase (Negative) Urine Bacteria (None) POC Creatinine (0.6-1.3) mg/dl Diabetes panel 03/23/25 03/24/25 Range/Units 16:45 07:44 Sodium 139 137 (135-149) mmol/L Potassium 4.2 4.0 (3.6-5.1) mmol/L Chloride 98 102 (96-114) mmol/L Carbon Dioxide 24 24 (20-32) mmol/L BUN 16 19 (7-30) mg/dL Creatinine 1.2 1.2 (0.5-1.5) mg/dL Glucose 125 H 130 H (60-115) mg/dL Calcium 10.1 9.0 (8.4-10.6) mg/dL AST 35 36 H (12-35) U/L ALT 27 33 (4-50) U/L Alkaline Phosphatase 72 59 (40-150) U/L Total Protein 8.8 H 7.4 (6.0-8.3) g/dL Albumin 4.8 4.2 (3.3-5.0) g/dL Calcium panel 03/23/25 03/24/25 Range/Units 16:45 07:44 Calcium 10.1 9.0 (8.4-10.6) mg/dL Phosphorus 4.3 (2.5-4.5) mg/dL Albumin 4.8 4.2 (3.3-5.0) g/dL Pituitary panel 03/23/25 03/24/25 Range/Units 16:45 07:44 Sodium 139 137 (135-149) mmol/L Potassium 4.2 4.0 (3.6-5.1) mmol/L Chloride 98 102 (96-114) mmol/L Carbon Dioxide 24 24 (20-32) mmol/L BUN 16 19 (7-30) mg/dL Creatinine 1.2 1.2 (0.5-1.5) mg/dL Glucose 125 H 130 H (60-115) mg/dL Calcium 10.1 9.0 (8.4-10.6) mg/dL Adrenal panel 03/23/25 03/24/25 Range/Units 16:45 07:44 Sodium 139 137 (135-149) mmol/L Potassium 4.2 4.0 (3.6-5.1) mmol/L Chloride 98 102 (96-114) mmol/L Carbon Dioxide 24 24 (20-32) mmol/L BUN 16 19 (7-30) mg/dL Creatinine 1.2 1.2 (0.5-1.5) mg/dL Glucose 125 H 130 H (60-115) mg/dL Calcium 10.1 9.0 (8.4-10.6) mg/dL Total Bilirubin 1.4 1.5 (0.1-1.5) mg/dL AST 35 36 H (12-35) U/L ALT 27 33 (4-50) U/L Alkaline Phosphatase 72 59 (40-150) U/L Total Protein 8.8 H 7.4 (6.0-8.3) g/dL Albumin 4.8 4.2 (3.3-5.0) g/dL All other labs normal. Progress Note:A&P Assessment and plan (1) Small bowel obstruction: Status: Acute Assessment and Plan: Patient is an 79-year-old male who presents for evaluation of a small-bowel obstruction. CT imaging was reviewed, this is likely secondary to adhesions. Patient does have a peristomal hernia as well. On examination today his abdomen is benign. He initially had a large amount of NG tube output upon placement, which has tapered off. The ostomy output has also increased with liquid and gas in the bag. Patient likely has a resolving partial small bowel obstruction. Recommend continuing conservative management at this time. Plan -continue NG tube to low intermittent suction. Will re-evaluate tomorrow morning and hopefully can do a trial of clamping. -okay for sips and ice chips, NPO -encourage ambulation -continue to hold patient's Xarelto. He is currently on therapeutic Lovenox.
--- NOTE | 2025-03-24 16:31 | PM.IMPN1 ---
Assessment and Plan Assessment and plan (1) Small bowel obstruction: Problem comment: -complicated by hx of AFIB, now in RVR. hx of PE and on chronic anticoagulation. hx of colon and prostate cancer and total colectomy. Status: Acute (2) Presence of ileostomy: Problem comment: [facility] patient 2021 Status: Acute (3) Atrial fibrillation with RVR: Problem comment: Echo shows preserved EF and IV metoprolol and diltizem appropriate Status: Acute (4) Ulcerative colitis: Problem comment: s/p colectomy Status: Acute (5) History of pulmonary embolism: Status: Acute (6) Chronic anticoagulation: Status: Acute (7) HTN (hypertension): Status: Acute (8) PAF (paroxysmal atrial fibrillation): Status: Acute Subjective Date Seen: 03/24/25 Interval history: Daily Progress Note - Hospital Medicine Day #: 2 CC: AFib with RVR small-bowel obstruction. Longstanding colostomy and IBD 24 HOUR UPDATE: Already starting to improve. NG output has been much less. Abdominal distension feels better. His colostomy bag is filling with liquid stool. He has known AFib but has never had an experience with RVR and he can tell minimally that he is in a rapid ventricular response. He typically just takes a small dose of metoprolol. No chest pain or radiation to his left jaw or arm. No diaphoresis. Notable Labs, Micro, Rads, Interventions: His vital signs show a stable blood pressure no fever. He satting mid 90s on room air he is not hypoxic nor is he tachypneic. His heart rate has been essentially 90-120 to 25 most of the day. White blood cell count has returned to normal. Electrolytes are normal. His lactate is mildly elevated this morning. Magnesium is normal CRP is 6.1, normal lipase Objective: alert, interactive. NAD. Vitals: see above Lungs: Clear. Abdomen: liquid stool in ostomy bag; less pain and discomfort noted on exam. Cardiac: S1S2. irregular. mildly tachy Disposition/Potential discharge - home 2-3 days Today I spent 50minutes seeing the patient, reviewing Expanse and EPIC notes/diagnostics, discussing the care plan with our care time that includes social work, PT/OT, pharmacy, RT, alf and documenting my impressions and plan in the medical record. Prolonged Physician Services [id number] ([facility]) in conjunction with: [id number] (subsequent visit; 50 mins + 15 mins prolonged services = 65 mins total) Exam Const: Vital Signs, click to edit/add: Vital Signs - 24 hr 03/23/25 17:08 03/23/25 17:15 03/23/25 18:05 Temperature Pulse Rate 104 H 106 H 102 H Pulse Rate [Pulse Oximeter] Respiratory Rate Blood Pressure Blood Pressure [Le ft Arm] Blood Pressure [Ri ght Upper Arm] Pulse Oximetry 88 92 95 Oxygen Delivery Me thod 03/23/25 18:06 03/23/25 19:32 03/23/25 19:57 Temperature Pulse Rate 100 Pulse Rate [Pulse Oximeter] Respiratory Rate 16 16 Blood Pressure 123/66 Blood Pressure [Le ft Arm] Blood Pressure [Ri ght Upper Arm] 136/86 Pulse Oximetry 89 Oxygen Delivery Me thod 03/24/25 01:38 03/24/25 02:24 03/24/25 04:50 Temperature 98.2 F Pulse Rate 107 H Pulse Rate [Pulse Oximeter] 117 H Respiratory Rate 17 Blood Pressure Blood Pressure [Le ft Arm] 129/83 Blood Pressure [Ri ght Upper Arm] Pulse Oximetry 91 93 Oxygen Delivery Me thod Room Air Room Air 03/24/25 07:00 03/24/25 07:00 03/24/25 11:00 Temperature 98.2 F 98.2 F Pulse Rate Pulse Rate [Pulse Oximeter] 106 H 106 H 110 H Respiratory Rate 16 16 16 Blood Pressure Blood Pressure [Le ft Arm] 129/74 121/88 Blood Pressure [Ri ght Upper Arm] Pulse Oximetry 93 93 Oxygen Delivery Me thod Room Air Room Air Labs Labs: Laboratory Results - last 24 hr 03/23/25 03/23/25 03/23/25 16:34 16:45 18:08 WBC 13.60 H RBC 5.28 Hgb 16.2 Hct 49.6 MCV 94 MCH 31 MCHC 33 RDW Coeff of [place] 14.1 Plt Count 236 Neut % (Auto) 83.5 H Lymph % (Auto) 9.3 L [place] % (Auto) 6.0 Eos % (Auto) 1.0 Baso % (Auto) 0.1 Neut # (Auto) 11.40 H Lymph # (Auto) 1.30 [place] # (Auto) 0.80 Eos # (Auto) 0.10 Baso # (Auto) 0.00 Abs Immat Gran (auto) 0.00 Imm/Tot Granulo (auto) 0.1 INR VBG pH VBG pCO2 VBG pO2 VBG HCO3 Sodium 139 Potassium 4.2 Chloride 98 Carbon Dioxide 24 Anion Gap 17 H BUN 16 Creatinine 1.2 Estimated Creat Clear 55.49 Estimated GFR 61 Glucose 125 H Lactate 1.2 Calcium 10.1 Phosphorus Magnesium Total Bilirubin 1.4 Direct Bilirubin AST 35 ALT 27 Alkaline Phosphatase 72 Troponin I C-Reactive Protein Total Protein 8.8 H Albumin 4.8 Lipase 120 Urine Color Yellow Urine Appearance Clear Urine pH 5.0 Ur Specific [place] 1.010 Urine Protein Negative Urine Glucose (UA) Negative Urine Ketones Negative Urine Blood Negative Urine Nitrite Negative Urine Bilirubin Negative Urine Urobilinogen 0.2 Ur Leukocyte Esterase Trace A Urine RBC 0-2 Urine WBC 0-2 Ur Squamous Epith Cells Few Urine Bacteria Few A POC Creatinine 1.4 H 03/24/25 07:44 WBC 10.40 RBC 4.71 Hgb 14.8 Hct 43.9 MCV 93 MCH 31 MCHC 34 RDW Coeff of [place] 14.2 Plt Count 228 Neut % (Auto) 81.7 H Lymph % (Auto) 6.7 L [place] % (Auto) 11.3 H Eos % (Auto) 0.1 Baso % (Auto) 0.1 Neut # (Auto) 8.50 H Lymph # (Auto) 0.70 L [place] # (Auto) 1.20 H Eos # (Auto) 0.01 Baso # (Auto) 0.01 Abs Immat Gran (auto) 0.01 Imm/Tot Granulo (auto) 0.1 INR 1.33 H VBG pH 7.434 H VBG pCO2 36 L VBG pO2 55.2 H VBG HCO3 24 Sodium 137 Potassium 4.0 Chloride 102 Carbon Dioxide 24 Anion Gap 11 BUN 19 Creatinine 1.2 Estimated Creat Clear 55.49 Estimated GFR 61 Glucose 130 H Lactate 2.2 H Calcium 9.0 Phosphorus 4.3 Magnesium 1.8 Total Bilirubin 1.5 Direct Bilirubin 0.3 AST 36 H ALT 33 Alkaline Phosphatase 59 Troponin I < 0.01 C-Reactive Protein 6.1 H Total Protein 7.4 Albumin 4.2 Lipase 56 Urine Color Urine Appearance Urine pH Ur Specific [place] Urine Protein Urine Glucose (UA) Urine Ketones Urine Blood Urine Nitrite Urine Bilirubin Urine Urobilinogen Ur Leukocyte Esterase Urine RBC Urine WBC Ur Squamous Epith Cells Urine Bacteria POC Creatinine
[2025-03-24] MEDS: LACTATED RINGERS 1000 ML 1,000 ML 125 ML IV (16:33)
[2025-03-24] MEDS: BUDESONIDE FORMOTEROL 1 EACH IH (20:57)
[2025-03-25] MEDS: LACTATED RINGERS 1000 ML 1,000 ML 125 ML IV ×2 (00:46→09:00)
[2025-03-25 02:00] VITALS: BP 132/81; PULSE 106; PULSE 111; RESP 16; RESP 17; TEMP 36.6; O2SAT 91
[2025-03-25] MEDS: METOPROLOL TARTRATE 1 MG/ML inj 5 MG IVP (04:27)
[2025-03-25 04:29] VITALS: BP 142/84; PULSE 111; RESP 16; O2SAT 91
[2025-03-25 05:09] VITALS: PULSE 85
[2025-03-25 06:46] LABS: Hematocrit* 45.7 % (37.0-53.0); Hemoglobin* 14.9 gm/dL (13.5-17.5); Immature Granulocytes Abs Auto 0.03 K/uL (0.00-0.30); Immature Granulocytes Pct Auto 0.3 %; Mean Corpuscular HGB Conc 33 gm/dL (32-36); Mean Corpuscular Hemoglobin 31 pg (26-34); Mean Corpuscular Volume 95 fL (80-100); RDW Coefficient of Variation % 14.4 % (11.5-15.5); Red Blood Count* 4.80 m/uL (4.30-5.90); White Blood Count* 10.06 K/uL (4.50-11.00)
[2025-03-25 06:47] LABS: Lymphocytes Absolute Auto 1.30 K/uL (0.90-2.90); Slide Review Reflex No
[2025-03-25 07:05] LABS: Chloride* 103 mmol/L (96-114)
[2025-03-25 07:06] LABS: Albumin* 4.1 g/dL (3.3-5.0); Potassium* 3.9 mmol/L (3.6-5.1); Sodium* 139 mmol/L (135-149)
[2025-03-25 07:08] VITALS: PULSE 109
[2025-03-25 07:08] LABS: Blood Urea Nitrogen* 19 mg/dL (7-30); Creatinine* 1.2 mg/dL (0.5-1.5); Est. Creatinine Clearance* 55.49; Estimated Glomerular Filt Rate 61 ml/min
[2025-03-25 07:09] LABS: Alanine Aminotransferase* 27 U/L (4-50); Alkaline Phosphatase* 61 U/L (40-150); Anion Gap 10 mEq/L (7-15); Aspartate Amino Transferase* 28 U/L (12-35); Bilirubin Total* 1.3 mg/dL (0.1-1.5); Calcium* 9.1 mg/dL (8.4-10.6); Carbon Dioxide* 26 mmol/L (20-32); Glucose* 108 mg/dL (60-115); Total Protein* 7.6 g/dL (6.0-8.3)
--- NOTE | 2025-03-25 07:26 | PC.NURSE ---
shift note: Pt. is AOx4. Pt. up x1 w/ GB and walker. Pt. tolerating clears. Pt. empties ileostomy bag IND. A. fib w/ NVR.
[2025-03-25 07:30] VITALS: BP 113/81; PULSE 97; RESP 18; TEMP 36.1; O2SAT 92
--- NOTE | 2025-03-25 08:56 | P.GSPN_ITS ---
Subjective Subjective Date Seen: 03/25/25 Interval history: Patient is doing well this morning. His NGT fell out last night. Since being removed he denies any abdominal pain, distension or nausea. He has been tolerating clear liquids without difficulty. He continues to have a lot of liqui d output and gas from his stoma. Scant amount of solid material. Exam Narrative: Exam Narrative: Abdomen: soft, non tender nondistended. Ostomy in place with copious amount of liquid in bag and some gas. Const: Vital Signs, click to edit/add: Vital Signs - 24 hr 03/24/25 11:00 03/24/25 15:00 03/24/25 15:00 Temperature 98.2 F 98.2 F Pulse Rate Pulse Rate [Pulse Oximeter] 110 H 108 H 108 H Respiratory Rate 16 16 16 Blood Pressure [Le ft Arm] 121/88 136/69 Pulse Oximetry 93 93 Oxygen Delivery Me thod Room Air Room Air 03/24/25 15:00 03/24/25 19:00 03/24/25 22:48 Temperature 98.6 F 98.7 F Pulse Rate 95 Pulse Rate [Pulse Oximeter] 95 96 Respiratory Rate 16 16 Blood Pressure [Le ft Arm] 119/82 122/68 Pulse Oximetry 93 90 Oxygen Delivery Me thod Room Air Room Air 03/25/25 02:00 03/25/25 02:00 03/25/25 04:29 Temperature 97.9 F Pulse Rate Pulse Rate [Pulse Oximeter] 106 H 111 H 111 H Respiratory Rate 17 16 16 Blood Pressure [Le ft Arm] 132/81 142/84 H Pulse Oximetry 91 91 Oxygen Delivery Me thod Room Air Room Air 03/25/25 05:09 03/25/25 07:08 03/25/25 07:30 Temperature 97.0 F L Pulse Rate 85 109 H Pulse Rate [Pulse Oximeter] 97 Respiratory Rate 18 Blood Pressure [Le ft Arm] 113/81 Pulse Oximetry 92 Oxygen Delivery Me thod Room Air 03/25/25 07:30 Temperature Pulse Rate Pulse Rate [Pulse Oximeter] 97 Respiratory Rate 18 Blood Pressure [Le ft Arm] Pulse Oximetry Oxygen Delivery Me thod Labs/Imaging Labs Labs: No leukocytosis. Imaging Imaging: No new imaging. Progress Note:A&P Assessment and plan (1) Small bowel obstruction: Status: Acute Assessment and Plan: Patient with a resolving partial small-bowel obstruction. NG tube fell out last night. He has been tolerating a clear liquid diet. Has had return of bowel function. Plan -advance diet as tolerated -encourage ambulation -would continue IV Lovenox while inpatient, resume Xarelto as an outpatient
[2025-03-25] MEDS: METOPROLOL TARTRATE 25 MG TABLET 12.5 MG PO (09:24)
[2025-03-25] MEDS: FOLIC ACID 1 MG TABLET PO (09:24)
[2025-03-25] MEDS: RIVAROXABAN 10 MG TABLET 20 MG PO (09:24)
[2025-03-25 11:00] VITALS: BP 122/73; PULSE 85; RESP 18; TEMP 36.4; O2SAT 92
--- NOTE | 2025-03-25 13:31 | P.DS_ITS ---
DS: Providers Provider Date Seen: 03/25/25 Date of admission: 03/24/25 03:29 Primary care physician: Pedro March MD Admitting Clinician: Erik Anderson MD Attending Physician on discharge: [facility] Date of Discharge: 03/25/25 DS: Diagnosis Discharge Diagnosis (1) Small bowel obstruction: Status: Acute Problem details: -complicated by hx of AFIB, now in RVR. hx of PE and on chronic anticoagulation. hx of colon and prostate cancer and total colectomy. 03/25 - RVR resolved. Patient inadvertently pulled his own NG. Tolerating p.o. intake. Output in ostomy is liquid. Meeting discharge criteria. (2) PAF (paroxysmal atrial fibrillation): Status: Acute Problem details: -continue metoprolol and Eliquis (3) Atrial fibrillation with RVR: Status: Acute Problem details: Echo shows preserved EF and IV metoprolol and diltizem appropriate -03/25 resolved (4) Ulcerative colitis: Status: Acute Problem details: s/p colectomy (5) Presence of ileostomy: Status: Acute Problem details: [place] patient 2021 (6) HTN (hypertension): Status: Acute (7) Chronic anticoagulation: Status: Acute (8) History of pulmonary embolism: Status: Acute DS: Summary Hospital Course Hospital Course: QUESTIONS TO ASK AT FOLLOW-UP: 1. IV been bothered by fast heart rate/palpitations? 2. House the ostomy output been? Any abdominal pain? BRIEF HOSPITAL COURSE: Patient was admitted for 3 days. Synopsis of acute inpatient issues are outlined above. Chronic medical conditions with notable findings outlined above. Eros was admitted with an acute small-bowel obstruction. He had an NG placed that had significant output in the 1st 12 hours. Ultimately it resolved on its own, with conservative measures. He inadvertently pulled his own NG tube. But he was able to tolerate a trial of p.o. thereafter. Output in his ostomy was liquid. His labs were reassuring. He did develop RVR from his paroxysmal AFib on night 2. This was treated with IV diltiazem and IV metoprolol as he was NPO and on low intermittent suction with his NG. Thereafter his elevated heart rate resolved when his NG came out. DISCHARGE MEDICATIONS: See Reconciled list - SIGNIFICANT CHANGES: No changes Specific instructions to the patient and follow-up are outlined below. REVIEW OF SYSTEMS No new chest pain or dyspnea Pain controlled No voiding difficulties Tolerating diet challenge PHYSICAL EXAM: CONSTITUTIONAL: Conversive, good historian. A/O. Knows setting and context. GENERAL: Well-developed and above ideal body weight, in no respiratory distress. VITAL SIGNS: see record. HEENT: Sclerae are anicteric. No petechiae. CARDIAC: rhythm is regular. There is no S3 or rub. No harsh murmurs. Extremities show trace edema with symmetrical pulses. PULM: good air entry with no wheeze. NEURO: Speech is fluent. A brief neurologic exam is negative. ABDOMEN: Obese. Ostomy is healthy appearing. No tenderness to palpation. SKIN: No rashes, petechiae, concerning changes PSYCHIATRIC: Euthymic. DISPOSITION: Home with Time spent on discharge 37 minutes. Status at Discharge Functional status at discharge: independent ambulation Overall status at discharge: patient is progressing back to baseline Time Spent with Patient Time attestation: Total time spent providing and/or coordinating discharge services: Time spent: Greater than 30 minutes Exam Const: Vital Signs, click to edit/add: Vital Signs - 24 hr 03/24/25 15:00 03/24/25 15:00 03/24/25 15:00 Temperature 98.2 F Pulse Rate 95 Pulse Rate [Pulse Oximeter] 108 H 108 H Respiratory Rate 16 16 Blood Pressure [Le ft Arm] 136/69 Pulse Oximetry 93 Oxygen Delivery Me thod Room Air 03/24/25 19:00 03/24/25 22:48 03/25/25 02:00 Temperature 98.6 F 98.7 F 97.9 F Pulse Rate Pulse Rate [Pulse Oximeter] 95 96 106 H Respiratory Rate 16 16 17 Blood Pressure [Le ft Arm] 119/82 122/68 132/81 Pulse Oximetry 93 90 91 Oxygen Delivery Me thod Room Air Room Air Room Air 03/25/25 02:00 03/25/25 04:29 03/25/25 05:09 Temperature Pulse Rate 85 Pulse Rate [Pulse Oximeter] 111 H 111 H Respiratory Rate 16 16 Blood Pressure [Le ft Arm] 142/84 H Pulse Oximetry 91 Oxygen Delivery Me thod Room Air 03/25/25 07:08 03/25/25 07:30 03/25/25 07:30 Temperature 97.0 F L Pulse Rate 109 H Pulse Rate [Pulse Oximeter] 97 97 Respiratory Rate 18 18 Blood Pressure [Le ft Arm] 113/81 Pulse Oximetry 92 Oxygen Delivery Me thod Room Air 03/25/25 11:00 Temperature 97.6 F Pulse Rate Pulse Rate [Pulse Oximeter] 85 Respiratory Rate 18 Blood Pressure [Le ft Arm] 122/73 Pulse Oximetry 92 Oxygen Delivery Me thod Room Air DS: Data Data Completed and Pending Labs on day of discharge: Labs from last 24 hours 03/25/25 06:36 WBC 10.06 RBC 4.80 Hgb 14.9 Hct 45.7 MCV 95 MCH 31 MCHC 33 RDW Coeff of [place] 14.4 Plt Count 202 Neut % (Auto) 75.7 H Lymph % (Auto) 12.5 L [place] % (Auto) 9.6 Eos % (Auto) 1.7 Baso % (Auto) 0.2 Neut # (Auto) 7.60 H Lymph # (Auto) 1.30 [place] # (Auto) 1.00 H Eos # (Auto) 0.17 Baso # (Auto) 0.02 Abs Immat Gran (auto) 0.03 Imm/Tot Granulo (auto) 0.3 Sodium 139 Potassium 3.9 Chloride 103 Carbon Dioxide 26 Anion Gap 10 BUN 19 Creatinine 1.2 Estimated Creat Clear 55.49 Estimated GFR 61 Glucose 108 Calcium 9.1 Total Bilirubin 1.3 AST 28 ALT 27 Alkaline Phosphatase 61 Total Protein 7.6 Albumin 4.1 Discharge Plan Discharge Disposition: Home, Self-Care Date of Admission: 03/24/25 03:29 Attending Provider on Discharge: Carrol Arnett Primary Care Provider: Pedro March Condition: Improved Anticipated Discharge Date/Time: 03/25/25 13:13 Discharge Medications: Continued atorvastatin 10 mg tablet 5 mg PO QPM omeprazole 40 mg capsule,delayed release(DR/EC) 40 mg PO .[id number] folic acid 1 mg tablet 1 mg PO DAILY metoprolol tartrate 25 mg tablet 12.5 mg PO BID Xarelto 20 mg tablet 20 mg PO QDAY Rx Instructions: must administer with evening meal budesonide-formoterol [Breyna] 160-4.5 mcg/actuation HFA aerosol inhaler 1 puff inhalation BID Discharge Orders: Discharge Order (Routine); Ordered 03/25/25 Ordered By: Carrol Arnett Activity Level: Activity as Tolerated Discharge Diet: Low Fiber Follow Up Appointments: Pedro March MD [Primary Care Provider, Family Practice] - 04/06/25 1:40 pm Referral Note: [facility] for hospital follow-up. Forms: [employer] Info Instructions
--- NOTE | 2025-03-25 14:24 | PC.NURSE ---
discharge. pt has been pleasant. no abd pain. he is alert x4. he is up ab leonila. he is tolerating diet. he was regular diet. Pt. empties ileostomy bag IND. tele shows a fib SL is patent. IV fluids where d/c. surgeon and hospital saw him . he is eating drinking and voiding.
== END 2025-03-25 15:10 | disposition home or self-care (01) | DRG 390 ==
LOC: ED 20:46 → MEDSURG 03-24 01:30
PROVIDERS: Family Medicine; Admitting Provider Internal Medicine; Emergency Provider Emergency Medicine; PCP Family Medicine; Visit Provider Family Medicine
DX: K56.50 Intestinal adhesions [bands], unspecified as to partial versus complete obstruction (principal); K43.5 Parastomal hernia without obstruction or gangrene; Z93.2 Ileostomy status; I48.0 Paroxysmal atrial fibrillation; I10 Essential (primary) hypertension; Z85.038 Personal history of other malignant neoplasm of large intestine; Z90.49 Acquired absence of other specified parts of digestive tract; Z79.01 Long term (current) use of anticoagulants; Z86.711 Personal history of pulmonary embolism; Z86.718 Personal history of other venous thrombosis and embolism; Z85.46 Personal history of malignant neoplasm of prostate
CPT/HCPCS: 36415; 74018; 74177; 80053; 80069; 80076; 81001; 82565; 82803; 83605; 83690; 83735; 84484; 85025; 85610; 86140; 87086; 93005; 93306; 99284; 99285; A9270; J0131; J1650; J2405; J3010; J7030; J7120; Q9957; Q9967; S5010